=== PATIENT | female | born 1965 | race Two or more races ===

== ENCOUNTER → 2020-08-27 14:32 | Outpatient (BNVA) | payer OTHER, SELFPAY | PROVIDERS: PCP Internal Medicine; Visit Provider Nurse Practitioner ==

== ENCOUNTER 2021-02-06 10:19 | Outpatient (REF) | payer OTHER, SELFPAY ==
[2021-02-06 12:43] LABS: Free T4 (Free Thyroxine) 1.25 ng/dL (0.71-1.85); Thyroid Stimulating Hormone 0.42 uIU/mL (0.32-4.0)
[2021-02-07 08:17] LABS: Triiodothyronine T3 Total 99 ng/dL (76-181)
== END 2021-02-06 10:20 | disposition home or self-care (01) ==
LOC: HO.LAB 10:19
PROVIDERS: Absent Provider Internal Medicine; PCP Internal Medicine; Visit Provider Internal Medicine
DX: E05.00 Thyrotoxicosis with diffuse goiter without thyrotoxic crisis or storm (principal); E89.0 Postprocedural hypothyroidism; Z11.59 Encounter for screening for other viral diseases
CPT/HCPCS: 36415; 84439; 84443; 84480

== ENCOUNTER 2021-03-17 11:45 | Outpatient (REF) | payer OTHER, SELFPAY ==
--- NOTE | ~2021-03-17 | US_ITS ---
EXAMINATION: US THYROID CLINICAL INFORMATION: Hypothyroidism. COMPARISON: Ultrasound soft tissue head/neck thyroid dated 09/21/2019 and 06/13/2013. TECHNIQUE: Linear transducer grayscale and color Doppler examination with attention to the region of the thyroid. FINDINGS: SIZE: Measurements of the thyroid lobes and nodules are given in sagittal, anteroposterior and transverse dimensions respectively. Right Thyroid Lobe: 3.1 x 0.7 x 0.8 cm, volume 0.9 mL. Previously 2.6 x 1.3 x 0.6 cm, volume 1.0 mL. Parenchyma: The gland echotexture is heterogeneous. Thyroid vascularity is normal. Left Thyroid Lobe: 2.4 x 0.6 x 0.7 cm, volume 0.5 mL. Previously 2.8 x 0.9 x 0.7 cm, volume 0.8 mL. Parenchyma: The gland echotexture is heterogeneous. Thyroid vascularity is normal. Isthmus: 0.1 cm in maximum AP dimension. Previously 0.15 cm. No focal thyroid nodule is seen. NODES: No lymphadenopathy is seen in the tissue surrounding the thyroid gland. US/US thyroid IMPRESSION: The thyroid is small here with heterogeneous echogenicity which is overall increased. The findings are most consistent with a diagnosis of chronic thyroiditis such as Harry's. There is no defined nodule. ACR TI-RADS RECOMMENDATION REFERENCE: Ultrasound-guided fine-needle aspiration, followup ultrasound, no further follow up. * TR1 (0 point) and TR 2 (2 points): No FNA or follow up * TR3 (3 points): FNA if more than or equal to 2.5 cm in maximum dimension, followup ultrasound in 1, 3 and 5 years if 1.5 to 2.4 cm in maximum dimension. * TR4 (4-6 points): FNA if more than or equal to 1.5 cm in maximum dimension, followup ultrasound in 1, 2, 3 and 5 years if 1 to 1.4 cm in maximum dimension. * TR5 (more than or equal to 7 points): FNA if more than or equal to 1 cm in maximum dimension, followup ultrasound every year for 5 years if 0.5 to 0.9 cm in maximum dimension. * TR3, TR4 or TR5 nodules that are below the size threshold for follow up receive no follow up.
== END 2021-03-17 11:46 | disposition home or self-care (01) ==
LOC: HO.US 11:45
PROVIDERS: Visit Provider Internal Medicine
DX: E03.9 Hypothyroidism, unspecified (principal)
CPT/HCPCS: 76536

== ENCOUNTER 2021-03-20 11:31 | Outpatient (REF) | payer OTHER, SELFPAY ==
--- NOTE | ~2021-03-20 | US_ITS ---
EXAMINATION: US VENOUS ULTRASOUND WITH DOPPLER LOWER EXTREMITY, LEFT CLINICAL INFORMATION: Pain in left leg COMPARISON: Ultrasound left lower extremity venous Doppler from 10/03/2010 TECHNIQUE: Ultrasound of the deep veins is performed from the hip to the calf with compression sonography and color and pulse Doppler assessment. Spectral analysis with color-flow imaging is performed. FINDINGS: There is normal venous compression and respiratory variation and augmented flow. The visualized common femoral vein, superficial femoral vein, profunda femoral vein, popliteal vein, and the trifurcation region shows no evidence of deep venous thrombosis. There is no significant popliteal fossa cyst. If the patient's symptoms persist, followup ultrasound in 5 days 7 days might be of value to exclude proximal propagation from a non-visualized calf vein. US/US venous duplex LE IMPRESSION: No DVT demonstrated in the left lower extremity.
[2021-03-20 12:35] LABS: MANUAL DIFF FLAG NO
[2021-03-20 12:44] LABS: Eosinophils Absolute Auto 0.1 X10*3/uL (0.0-0.4); Eosinophils Percent Auto 1.1 % (0-4); Hematocrit 42.6 % (37-47); Imm Gran Abs Auto 0.01 X10*3/uL (0.00-0.03); Imm Gran Pct Auto 0.2 % (0.0-0.4); Lymphocytes Absolute Auto 1.3 X10*3/uL (1.2-4.9); Lymphocytes Percent Auto 30.5 % (20-40); Mean Corpuscular HGB Conc 32.9 g/dl (31.0-35.0); Mean Corpuscular Volume 85.2 fL (80-98); Monocytes Absolute Auto 0.3 X10*3/uL (0.1-1.2); Monocytes Percent Auto 5.9 % (2-11); Neutrophils Absolute Auto 2.7 X10*3/uL (2.0-8.3); Neutrophils Percent Auto 62.3 % (45-73); Platelet Count 145 X10*3/uL (160-400); Red Cell Distribution Width 12.7 % (11.0-16.0); White Blood Count 4.4 X10*3/uL (4.8-10.8)
[2021-03-20 13:25] LABS: Thyroid Stimulating Hormone 1.22 uIU/mL (0.32-4.0)
[2021-03-20 13:46] LABS: Cholesterol 283 mg/dL; HDL Cholesterol 56 mg/dL; LDL Cholesterol Calculated 196 mg/dl; Triglycerides 157 mg/dL
[2021-03-20 14:06] LABS: Uric Acid 5.5 mg/dL (2.4-5.7)
[2021-03-20 16:08] LABS: Folate 13.2 ng/mL (> or = 4.0); Vitamin B12 930 pg/mL (200-900)
[2021-03-27 18:36] LABS: Vitamin D 25-OH, D2 <4 ng/mL; Vitamin D 25-OH, D3 42 ng/mL; Vitamin D 25-OH, Total 42 ng/mL (30-100)
== END 2021-03-20 11:32 | disposition home or self-care (01) ==
LOC: HO.US 11:31
PROVIDERS: PCP Internal Medicine; Visit Provider Internal Medicine
DX: M79.605 Pain in left leg (principal); D64.9 Anemia, unspecified; E78.5 Hyperlipidemia, unspecified; E06.3 Autoimmune thyroiditis; M10.9 Gout, unspecified; D51.0 Vitamin B12 deficiency anemia due to intrinsic factor deficiency; E55.9 Vitamin D deficiency, unspecified
CPT/HCPCS: 36415; 80061; 82306; 82607; 82746; 84443; 84550; 85025; 93971

== ENCOUNTER 2021-04-16 11:41 | Outpatient (REF) | payer OTHER, SELFPAY ==
--- NOTE | ~2021-04-16 | US_ITS ---
EXAMINATION: US VENOUS ULTRASOUND WITH DOPPLER LOWER EXTREMITY, LEFT CLINICAL INFORMATION: Pain COMPARISON: Previous exams most recent March 2021 TECHNIQUE: Ultrasound of the deep veins is performed from the hip to the calf with compression sonography and color and pulse Doppler assessment. Spectral analysis with color-flow imaging is performed. FINDINGS: There is normal venous compression and respiratory variation and augmented flow. The visualized common femoral vein, superficial femoral vein, profunda femoral vein, popliteal vein, and the trifurcation region shows no evidence of deep venous thrombosis. There is no significant popliteal fossa cyst. US/US venous duplex LE LT IMPRESSION: No DVT demonstrated in the left lower extremity.
== END 2021-04-16 11:42 | disposition home or self-care (01) ==
LOC: HO.US 11:41
PROVIDERS: Visit Provider Internal Medicine
DX: M79.605 Pain in left leg (principal)
CPT/HCPCS: 93971

== ENCOUNTER → 2021-05-12 08:23 | Outpatient (BNVA) | payer OTHER, SELFPAY | PROVIDERS: PCP Internal Medicine; Visit Provider Internal Medicine ==

== ENCOUNTER 2021-07-24 11:16 | Outpatient (REF) | payer OTHER, SELFPAY ==
--- NOTE | ~2021-07-24 | XR_ITS ---
EXAMINATION: XR LUMBAR SPINE XR CERVICAL SPINE CLINICAL INFORMATION: Neck pain and low back pain. COMPARISON: None TECHNIQUE: Lumbar spine 3 views. Cervical spine 2 views. FINDINGS: CERVICAL SPINE: There is normal cervical lordosis. The vertebral heights and alignment are normal. There is loss of disc height. There is mild ventral spondylosis at the C4-C5 and C5-C6 disc levels. No visible acute fracture, dislocation or subluxation is seen. No lytic process. The prevertebral and paravertebral soft tissues are normal. LUMBAR SPINE: There is normal lumbar lordosis. The vertebral heights and alignment are normal. The disc heights are preserved. No lytic or sclerotic process is seen. The SI joints are symmetrical and unremarkable. The paravertebral soft tissues are normal. XR/XR cervical spine 2V IMPRESSION: Unremarkable cervical spine exam. There is mild ventral spondylosis at the C4-C5 and C5-C6 disc levels. No acute fracture or dislocation is seen. No acute fracture or dislocation in the lumbar spine. There is mild ventral spondylosis in the mid lumbar spine.
--- NOTE | ~2021-07-24 | XR_ITS ---
EXAMINATION: XR LUMBAR SPINE XR CERVICAL SPINE CLINICAL INFORMATION: Neck pain and low back pain. COMPARISON: None TECHNIQUE: Lumbar spine 3 views. Cervical spine 2 views. FINDINGS: CERVICAL SPINE: There is normal cervical lordosis. The vertebral heights and alignment are normal. There is loss of disc height. There is mild ventral spondylosis at the C4-C5 and C5-C6 disc levels. No visible acute fracture, dislocation or subluxation is seen. No lytic process. The prevertebral and paravertebral soft tissues are normal. LUMBAR SPINE: There is normal lumbar lordosis. The vertebral heights and alignment are normal. The disc heights are preserved. No lytic or sclerotic process is seen. The SI joints are symmetrical and unremarkable. The paravertebral soft tissues are normal. XR/XR lumbar spine 2-3V IMPRESSION: Unremarkable cervical spine exam. There is mild ventral spondylosis at the C4-C5 and C5-C6 disc levels. No acute fracture or dislocation is seen. No acute fracture or dislocation in the lumbar spine. There is mild ventral spondylosis in the mid lumbar spine.
--- NOTE | ~2021-07-24 | MR_ITS ---
EXAMINATION: MR BRAIN WITHOUT CONTRAST CLINICAL INFORMATION: New daily persistent headache. COMPARISON: Brain MRI 08/19/2018. TECHNIQUE: Multiplanar, multisequence imaging of the brain was performed without intravenous contrast. FINDINGS: There is no acute infarction, mass, hemorrhage, or extra-axial collection. The ventricles, sulci, and basilar cisterns are normal in size and configuration. Technique using a minimal nonspecific foci of T2/FLAIR hyperintensity are seen within the cerebral white matter. The cerebellar tonsils are normally positioned above the foramen magnum. The sella is partially empty, a nonspecific finding. The flow voids of the major intracranial arteries appear intact. The right-sided vestibule is again noted to be asymmetrically enlarged, likely congenital. There is mild paranasal sinus mucosal thickening without fluid levels. The mastoids are clear. MR/MR head/brain wo con IMPRESSION: No acute infarct, mass lesion, intracranial hemorrhage, or evidence of hydrocephalus.
[2021-07-24 12:14] LABS: MANUAL DIFF FLAG NO
[2021-07-24 12:44] LABS: Basophils Percent Auto 0.3 % (0-2); Eosinophils Percent Auto 0.8 % (0-4); Hemoglobin 13.4 g/dl (12.0-16.0); Imm Gran Abs Auto 0.01 X10*3/uL (0.00-0.03); Imm Gran Pct Auto 0.3 % (0.0-0.4); Lymphocytes Absolute Auto 1.2 X10*3/uL (1.2-4.9); Lymphocytes Percent Auto 32.5 % (20-40); Mean Corpuscular HGB Conc 32.7 g/dl (31.0-35.0); Mean Corpuscular Volume 85.6 fL (80.0-98.0); Mean Platelet Volume 11.3 fL (9.4-12.3); Monocytes Absolute Auto 0.2 X10*3/uL (0.1-1.2); Monocytes Percent Auto 5.6 % (2-11); Neutrophils Absolute Auto 2.3 x10*3/uL (2.0-8.3); Neutrophils Percent Auto 60.5 % (45-73); Platelet Count 151 X10*3/uL (160-400); Red Blood Count 4.79 X10*6/uL (4.20-5.50); Red Cell Distribution Width 12.4 % (11.0-16.0); White Blood Count 3.8 X10*3/uL (4.8-10.8)
[2021-07-24 12:52] LABS: Appearance Urine CLEAR; Color Urine YELLOW; Glucose Urine UA NEG (NEG); Leukocyte Esterase Urine NEG (NEG); Nitrite Urine NEG (NEG); Specific Gravity - Urine >= 1.030 (1.005-1.025); Urine Blood NEG (NEG); Urine Ketones 15 MG/DL (NEG); Urine Protein NEG (NEG-TRACE)
[2021-07-24 13:07] LABS: Alanine Aminotransferase 17 U/L (0-31); Albumin Level 4.4 g/dL (3.5-5.0); Alkaline Phosphatase 82 U/L (39-117); Anion Gap 12 (12-20); Aspartate Amino Transferase 19 U/L (5-31); Bilirubin Total 1.6 mg/dL (0.0-1.0); Blood Urea Nitrogen 11 mg/dL (9-16); Calcium 9.4 mg/dL (8.4-10.2); Carbon Dioxide 28 mmol/L (22-29); Chloride 104 mmol/L (96-108); Cholesterol 286 mg/dL; Estimated Glomerular Filt Rate > 60; Glucose Fasting 102 mg/dL (60-99); HDL Cholesterol 58 mg/dL; LDL Cholesterol Calculated 207 mg/dl; Potassium 3.9 mmol/L (3.3-5.1); Sodium 140 mmol/L (135-145); Total Protein 7.2 g/dL (6.5-8.0); Triglycerides 108 mg/dL
[2021-07-24 13:55] LABS: Folate > 20.0 ng/mL (> or = 4.0); Vitamin B12 1004 pg/mL (200-900)
[2021-07-29 13:02] LABS: Vitamin D 25-OH, D2 <4 ng/mL; Vitamin D 25-OH, D3 32 ng/mL; Vitamin D 25-OH, Total 32 ng/mL (30-100)
== END 2021-07-24 11:17 | disposition home or self-care (01) ==
LOC: HO.MRI 11:16
PROVIDERS: PCP Internal Medicine; Visit Provider Internal Medicine
DX: M54.2 Cervicalgia (principal); M54.50 Low back pain, unspecified; G44.52 New daily persistent headache (NDPH); E78.5 Hyperlipidemia, unspecified; E03.9 Hypothyroidism, unspecified; E06.3 Autoimmune thyroiditis; E53.8 Deficiency of other specified B group vitamins; E55.9 Vitamin D deficiency, unspecified
CPT/HCPCS: 36415; 70551; 72040; 72100; 80053; 80061; 81003; 82306; 82607; 82746; 84443; 85025

== ENCOUNTER → 2021-12-04 09:30 | Outpatient (BNVA) | payer OTHER, SELFPAY | PROVIDERS: PCP Internal Medicine; Visit Provider Internal Medicine | DX: Z13.89 Encounter for screening for other disorder (principal) ==

== ENCOUNTER 2022-03-27 09:49 | Outpatient (REF) | payer OTHER, SELFPAY ==
--- NOTE | ~2022-03-27 | XR_ITS ---
EXAMINATION: XR LUMBOSACRAL SPINE CLINICAL INFORMATION: Left-sided sciatica COMPARISON: Previous x-ray July 2021 TECHNIQUE: Three views of the lumbosacral spine. FINDINGS: Bone alignment is normal. No fracture or dislocation is seen. There is mild degenerative spondylosis. Disc spaces are normal. There is lower lumbar spine facet arthritis. There is evidence of atherosclerotic disease. XR/XR lumbar spine 2-3V IMPRESSION: Mild degenerative changes.
[2022-03-27 11:46] LABS: Appearance Urine Clear; Color Urine Yellow; Glucose Urine UA Negative (Negative); Leukocyte Esterase Urine Negative (Negative); Nitrite Urine Negative (Negative); PH 5.5 (5.0-8.0); Specific Gravity - Urine >= 1.030 (1.005-1.025); Urine Blood Negative (Negative); Urine Ketones Negative (Negative); Urine Protein Negative (Neg-Trace)
== END 2022-03-27 09:50 | disposition home or self-care (01) ==
LOC: HO.XRAY 09:49
PROVIDERS: PCP Internal Medicine; Visit Provider Internal Medicine
DX: M54.32 Sciatica, left side (principal); R30.0 Dysuria
CPT/HCPCS: 72100; 81003

== ENCOUNTER 2022-04-27 13:37 | Outpatient (REF) | payer OTHER, SELFPAY ==
[2022-04-29 12:21] LABS: Transglutaminase Ab IgG <1.0 U/mL; Transglutaminase IgA <1.0 U/mL
[2022-04-30 17:02] LABS: Vitamin D 25-OH, D2 <4 ng/mL; Vitamin D 25-OH, D3 34 ng/mL; Vitamin D 25-OH, Total 34 ng/mL (30-100)
== END 2022-04-27 13:38 | disposition home or self-care (01) ==
LOC: HO.LAB 13:37
PROVIDERS: PCP Internal Medicine; Visit Provider Nurse Practitioner Family
DX: Z01.818 Encounter for other preprocedural examination (principal); R10.9 Unspecified abdominal pain; E55.9 Vitamin D deficiency, unspecified; E78.5 Hyperlipidemia, unspecified; K21.9 Gastro-esophageal reflux disease without esophagitis; K58.2 Mixed irritable bowel syndrome
CPT/HCPCS: 36415; 82306; 86364; 99202; 99212

== ENCOUNTER 2022-05-07 09:20 | Outpatient (REF) | payer OTHER, SELFPAY ==
[2022-05-07 19:15] LABS: CT PCR NOT DETECTED (Not Detect.); NG PCR NOT DETECTED (Not Detect.)
[2022-05-08 09:19] LABS: BV Int Neg Control Negative (Negative); BV Int Pos Control Positive (Positive)
[2022-05-09 14:16] LABS: HPV mRNA E6/E7 rflx Not Detected (Not Detected)
== END 2022-05-07 09:21 | disposition home or self-care (01) ==
LOC: HO.LNP 09:20
PROVIDERS: Visit Provider Advanced Practice Midwife
DX: Z01.419 Encounter for gynecological examination (general) (routine) without abnormal findings (principal); R10.2 Pelvic and perineal pain; Z11.3 Encounter for screening for infections with a predominantly sexual mode of transmission; Z11.8 Encounter for screening for other infectious and parasitic diseases; Z11.51 Encounter for screening for human papillomavirus (HPV)
CPT/HCPCS: 76830; 76856; 81003; 87480; 87491; 87510; 87591; 87624; 87660; 88142

== ENCOUNTER 2022-05-07 09:40 | Outpatient (REF) | payer OTHER, SELFPAY ==
--- NOTE | ~2022-05-07 | US_ITS ---
EXAMINATION: US PELVIS CLINICAL INFORMATION: Pelvic and perineal pain. COMPARISON: None TECHNIQUE: Ultrasound of the pelvis is performed using both transabdominal and transvaginal transducers along with Doppler. Transvaginal imaging is performed due to inadequate visualization transabdominally. FINDINGS: UTERUS AND CERVIX The anteflexed, anteverted uterus measures approximately 5 x 3 x 5 cm ([id number] x AP x transverse dimension). The cervix is approximately 2 cm in length. No evidence of cervical mass. The endometrium is 0.3 cm AP. A 0.5 x 0.4 x 0.6 cm echogenic focus within the anterior uterine body remains similar in appearance compared to 08/04/2018 and likely represents a small intramural leiomyoma. ADNEXA: The right ovary is not visualized. The left ovary is not convincingly seen. The structure that probably represents the atrophied left ovary is 2.3 x 1.6 x 1.1 cm, volume of 2.1 mL. No adnexal masses are seen. No pelvic free fluid. US/US pelvic and transvaginal IMPRESSION: * Small intramural leiomyoma of the uterus. * No adnexal masses are seen, and there is no pelvic free fluid. No acute sonographic abnormalities in the visualized pelvis.
== END 2022-05-07 09:41 | disposition home or self-care (01) ==
LOC: HO.US 09:40
PROVIDERS: PCP Internal Medicine; Visit Provider Advanced Practice Midwife
DX: Z13.89 Encounter for screening for other disorder (principal)
CPT/HCPCS: 76830; 76856

== ENCOUNTER 2022-06-17 09:44 | Outpatient (REF) | payer OTHER, SELFPAY ==
[2022-06-17 13:15] LABS: Free T4 (Free Thyroxine) 1.33 ng/dL (0.71-1.85); Thyroid Stimulating Hormone 0.88 uIU/mL (0.32-4.0)
[2022-06-17 14:20] LABS: Vitamin D 25-OH Total 36.9 ng/mL (>30)
== END 2022-06-17 09:45 | disposition home or self-care (01) ==
LOC: HO.LAB 09:44
PROVIDERS: PCP Internal Medicine; Visit Provider Internal Medicine
DX: E55.9 Vitamin D deficiency, unspecified (principal); E89.0 Postprocedural hypothyroidism; E05.00 Thyrotoxicosis with diffuse goiter without thyrotoxic crisis or storm
CPT/HCPCS: 36415; 82306; 84439; 84443

== ENCOUNTER 2022-07-07 10:00 | Outpatient (RCR) | payer OTHER, SELFPAY ==
--- NOTE | 2022-07-29 08:56 | MHC.PT.DC ---
[facility] [place] Office [place] Office [place] Office [address] Fili Davidson [address] [phone] F: [phone] F: [phone] F: [phone] F: [phone] Physical Therapy Discharge Report Diagnosis: SCIATICA, LEFT SIDE (KP) Date of Surgery: Date of Evaluation: 06/17/22 Date of Discharge: 07/29/22 Treatments to Date: 2 Cancellations to Date: 4 No Shows to Date: 0 Discharge Status: Patient Elected to Stop Visit Non-compliance Discharge Summary: Brittany cancelled multiple appoints due to illness, transportation etc. At last cancelled treatment she chose to not schedule any further visits at this time. Electronically signed by: Rhea Power PT, DPT Please sign and return to therapist. Thank you for your referral.
== END 2022-07-29 08:55 | disposition home or self-care (01) ==
LOC: HO.PT 10:00
PROVIDERS: PCP Internal Medicine; Visit Provider Internal Medicine
DX: M54.32 Sciatica, left side (principal)
CPT/HCPCS: 97110; 97140; 97162

== ENCOUNTER 2022-10-23 09:48 | Outpatient (REF) | payer OTHER, SELFPAY ==
--- NOTE | ~2022-10-23 | MM_ITS ---
EXAMINATION: MM SCREENING DIGITAL BREAST TOMOSYNTHESIS, BILATERAL CLINICAL INFORMATION: Screening. Asymptomatic. The lifetime risk of breast cancer based on the Tyrer-Cuzick Model is 6%. COMPARISON: Mammography: 07/18/2018, 04/28/2017, 12/24/2015 TECHNIQUE: Digital breast tomosynthesis is performed in both the craniocaudal and mediolateral oblique views along with computer-aided detection (CAD). Synthesized 2D images are generated from the tomosynthesis. FINDINGS: There are scattered areas of fibroglandular density (ACR BI-RADS breast composition Category b). There are no significant masses, abnormal calcifications, or other abnormalities. Breast tissue composition borders on predominantly fatty. Background stromal markings are stable. There is an incidental intramammary node again seen mid upper outer left breast. The axilla and skin contours are unremarkable. No significant changes. MM/MM tomosynthesis screening BI IMPRESSION: No mammographic evidence of malignancy. ASSESSMENT: BI-RADS 2: Benign RECOMMENDATION: Routine annual mammography screening. This patient's information was entered into a reminder system with a target due date for their next mammogram.
[2022-10-23 11:10] LABS: Alanine Aminotransferase 20 U/L (0-31); Albumin Level 4.6 g/dL (3.5-5.0); Alkaline Phosphatase 91 U/L (39-117); Anion Gap 12 (12-20); Aspartate Amino Transferase 20 U/L (5-31); Bilirubin Total 1.8 mg/dL (0.0-1.0); Blood Urea Nitrogen 14 mg/dL (9-16); Calcium 9.5 mg/dL (8.4-10.2); Carbon Dioxide 28 mmol/L (22-29); Chloride 103 mmol/L (96-108); Cholesterol 352 mg/dL; Estimated Glomerular Filt Rate > 60; Glucose Fasting 143 mg/dL (60-99); HDL Cholesterol 55 mg/dL; LDL Cholesterol Calculated 262 mg/dl; Potassium 4.6 mmol/L (3.3-5.1); Sodium 138 mmol/L (135-145); Total Protein 7.2 g/dL (6.5-8.0); Triglycerides 179 mg/dL
[2022-10-23 11:43] LABS: Folate 19.3 ng/mL (> or = 4.0); Thyroid Stimulating Hormone 2.19 uIU/mL (0.32-4.0); Vitamin B12 803 pg/mL (200-900)
== END 2022-10-23 09:49 | disposition home or self-care (01) ==
LOC: HO.MAMMO 09:48
PROVIDERS: PCP Internal Medicine; Visit Provider Internal Medicine
DX: Z00.00 Encounter for general adult medical examination without abnormal findings (principal); Z12.31 Encounter for screening mammogram for malignant neoplasm of breast; E53.8 Deficiency of other specified B group vitamins; E78.5 Hyperlipidemia, unspecified; E06.3 Autoimmune thyroiditis
CPT/HCPCS: 36415; 77063; 77067; 80053; 80061; 82607; 82746; 84443; 99212

== ENCOUNTER 2022-10-23 11:40 | Outpatient (REF) | payer OTHER, SELFPAY | END 2022-10-23 11:41 | disposition home or self-care (01) | LOC: HO.LNP 11:40 | PROVIDERS: Visit Provider Advanced Practice Midwife | DX: R87.615 Unsatisfactory cytologic smear of cervix (principal) | CPT/HCPCS: 88142 ==

== ENCOUNTER 2022-11-17 11:00 | Outpatient (RCR) | payer OTHER, SELFPAY ==
--- NOTE | 2022-11-10 13:50 | MHC.PT.EP ---
[facility] [place] Office [place] Office [place] Office [address] Fili Davidson [address] [phone] F: [phone] F: [phone] F: [phone] F: [phone] Physical Therapy Plan of Care Date of Evaluation: Date of Surgery: n/a Diagnosis: sciatica, L side Assessment: Patient is a 57 year old female presenting to PT with complaints of pain in her low back. Pt reports onset of pain began about 3 weeks ago due to insidious onset. She presents today with impairments in pain, lumbar ROM, hip strength, core strength, radicular sx, and posture. Pt's current occupation is none, with baseline physical activities including ADLs, sleeping, bending, standing, ambulating. 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 Clinical presentation today is most consistent with signs and sx associated with possible sciatica sx and pt will benefit from skilled PT 2 week x 4 weeks to address the following problems and impairments noted upon evaluation: pain, lumbar ROM, hip strength, core strength, radicular sx, and posture. Her rehab potential is fair due to previous unsuccess with PT and noncompliance with PT. These problems limit the patient with the following functional activities: ADLs, sleeping, bending, standing, ambulating. The prescribed treatment plan of care is medically necessary. Co-morbidities of polyarthralgia, depression were identified and taken into considerations of plan of care. Pt was educated on HEP, role of PT, prognosis, POC. Frequency and Duration: The patient will be seen 2 x week x 4 weeks Short Term Goals: Pt will demonstrate improved hip MMT strength by 1/3 grade in 2 weeks for improved lumbopelvic stability. Pt will demonstrate ability to perform PPT with good core recruitment in 2 weeks. Pt will demonstrate centralization of sx in her L leg in 2 weeks. Halfway Goals: Pt will demonstrate improved LEFI score by 9 points in 4 weeks for improved functional mobility. Pt will demonstrate ability to complete ADLs with min to no pain in 4 weeks for return to PLOF. Treatment Plan: Modalities to reduce pain, spasms and effusion. Manual therapy to restore motion and function. Therapeutic exercise to improve strength and flexibility. Neuromuscular re-education for posture and balance. Therapeutic activities to return to functional activities of daily living. Electronically signed by: Idalmis Matthews, PT, DPT, ATC Please sign and return to therapist. Thank you for your referral.
--- NOTE | 2022-12-29 13:37 | MHC.PT.DC ---
[facility] [place] Office [place] Office [place] Office [address] Fili Davidson [address] [phone] F: [phone] F: [phone] F: [phone] F: [phone] Physical Therapy Discharge Report Diagnosis: sciatica, L side Date of Surgery: n/a Date of Evaluation: 11/10/22 Date of Discharge: 12/29/22 Treatments to Date: 2 Cancellations to Date: 9 No Shows to Date: 0 Discharge Status: Recommend MD Follow-up Visit Non-compliance Discharge Summary: Pt has not returned to skilled PT in >30 days for various reasons. Pt to be d/c per policy. Electronically signed by: Idalmis Matthews PT, DPT, ATC Please sign and return to therapist. Thank you for your referral.
== END 2022-12-29 13:37 | disposition home or self-care (01) ==
LOC: HO.PTCHIC 11:00
PROVIDERS: PCP Internal Medicine; Visit Provider Internal Medicine
DX: M54.32 Sciatica, left side (principal)
CPT/HCPCS: 97110; 97140; 97162

== ENCOUNTER 2022-12-29 09:45 | Outpatient (REF) | payer OTHER, SELFPAY ==
--- NOTE | ~2022-12-29 | XR_ITS ---
EXAMINATION: XR HAND, RIGHT CLINICAL INFORMATION: Pain COMPARISON: None available. TECHNIQUE: PA, lateral, and oblique views of the right hand. FINDINGS: Bone alignment is normal. No fracture or dislocation. 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 Joint spaces are otherwise normal. Normal soft tissues. 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
== END 2022-12-29 09:46 | disposition home or self-care (01) ==
LOC: HO.XRAY 09:45
PROVIDERS: PCP Internal Medicine; Visit Provider Internal Medicine
DX: M79.644 Pain in right finger(s) (principal)
CPT/HCPCS: 73120

== ENCOUNTER 2023-01-22 12:43 | Outpatient (REF) | payer OTHER, SELFPAY ==
--- NOTE | ~2023-01-22 | US_ITS ---
EXAMINATION: US PELVIS CLINICAL INFORMATION: Pain COMPARISON: Previous pelvic ultrasound April 2022 TECHNIQUE: Ultrasound of the pelvis is performed using both transabdominal and transvaginal transducers along with Doppler. Transvaginal imaging is performed due to inadequate visualization transabdominally. Exam is limited. FINDINGS: The uterus is anteverted and measures 6.5 x 4 x 5.6 cm in dimension. There are 2 small uterine lesions probably representing fibroids measuring 1 x 0.7 x 0.7 cm in the posterior uterine body and 5 mm in the anterior uterine body. Endometrial thickness is normal measuring 0.3 cm. The ovaries are not seen. There is no fluid in the pelvis. US/US pelvic and transvaginal IMPRESSION: Limited exam. Probable small uterine fibroids. Ovaries not seen. No pelvic fluid.
== END 2023-01-22 12:44 | disposition home or self-care (01) ==
LOC: HO.US 12:43
PROVIDERS: PCP Internal Medicine; Visit Provider Advanced Practice Midwife
DX: R10.2 Pelvic and perineal pain (principal)
CPT/HCPCS: 76830; 76856

== ENCOUNTER → 2023-02-03 07:40 | Outpatient (BNVA) | payer OTHER, SELFPAY | PROVIDERS: PCP Internal Medicine; Visit Provider Advanced Practice Midwife ==

== ENCOUNTER 2023-03-29 09:44 | Outpatient (AMB) | payer OTHER, SELFPAY ==
--- NOTE | 2023-03-29 09:46 | A.OFFPC_ITS ---
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 Accompanied by: Self / Same As Patient Allergies Penicillins [PENICILLINS] Allergy (Intermediate, Verified 03/29/23 10:08) RASH statin Adverse Reaction (Intermediate, Uncoded 03/29/23 10:08) elevated liver enzymes Medication List - Last Reconciled 03/29/23 by Isidra Stanton MD albuterol sulfate 90 mcg/actuation 1 inh inhalation QID PRN 30 days bupropion HCl 150 mg PO QAM 90 days cholecalciferol (vitamin D3) 25 mcg PO DAILY 90 days cyclobenzaprine 5 mg PO BEDTIME PRN 30 days duloxetine 20 mg PO DAILY ezetimibe (Zetia) 10 mg PO DAILY 90 days fluorometholone 0.1% 1 drp ophthalmic (eye) TID gabapentin 300 mg PO TID 30 days ibuprofen 800 mg PO TID PRN 30 days levothyroxine 125 mcg PO DAILY 90 days lidocaine 5% 1 patch topical DAILY 15 days magnesium 250 mg PO DAILY meclizine 25 mg PO BID PRN 5 days mecobalamin (vitamin B12) 1,000 mcg PO DAILY 60 days methylcellulose (laxative) (Citrucel) 500 mg PO DAILY ondansetron 8 mg PO Q12H PRN 10 days pantoprazole 40 mg PO DAILY propranolol 60 mg PO DAILY 90 days sennosides (Natural Senna Laxative) 17.2 mg (2 x 8.6 mg) PO BEDTIME sertraline 50 mg PO DAILY Shower Chair As directed topiramate 25 mg PO DAILY 30 days trazodone 25 mg PO BEDTIME Ventolin HFA 90 mcg/actuation (albuterol sulfate) 2 puffs inhalation Q6H PRN 30 days NS vitamin A 2,400 mcg PO DAILY Tobacco use date assessed: 10/26/22 Dental Screening Dental Screen Date: 03/29/23 Did you have a dental visit in the last 12 months?: Yes Did you have a dental problem in the last 6 months where you did not have access to dental care?: No Was dental information given to patient?: Patient has dentist HPI HPI Comments History of Present Illness Details This is a 58-year-old female with autoimmune thyroiditis, GERD, dyslipidemia and mild recurrent major depression that complains of bilateral hand pain more prominent in the left that started last week after she moved a cable. TSH and lipid panel will be order. GERD stable with medications. Depression still present and she went to see a psychiatrist which prescribed sertraline and duloxetine as well as trazodone to sleep and she has not started anything yet. I advised to start duloxetine and to let psychiatry is know that she is on bupropion. No chest pain or shortness breath. [facility]LY [facility], [facility] Medical History (Updated 03/29/23 @ 10:25 by Isidra Stanton MD) Autoimmune thyroiditis B12 deficiency Dyslipidemia Ear discomfort Fibroids JAXSON (generalized anxiety disorder) GERD (gastroesophageal reflux disease) Graves disease Hypovitaminosis D Left leg pain Leukopenia Lumbar degenerative disc disease Lumbar pain Moderate recurrent major depression Nausea and vomiting Neck pain New daily persistent headache Pernicious anemia Physical exam Polyarthralgia Postablative hypothyroidism Severe major depression without psychotic features Uterine fibroid Surgical History History of laparoscopic cholecystectomy Family History Father Medical history unknown Mother Chronic mental illness Diabetes Hypertension Maternal Grandfather Stroke Maternal Aunt Uterine cancer Family/Other FH: mental illness Maternal Grandmother Diabetes Social History Household Members: None Housing: Apartment Are you a primary home care scheduler to a significant other at home: Yes (mom, brothers) Do you presently have visiting nurse or other home services: No Alcohol intake: current Alcohol intake frequency: holidays/special occasions only Alcohol type: wine and other Patient Tobacco Use Status: Never used Tobacco e-Cigarette/Vaping Use: Never Used Second Hand Smoke Exposure: No service: No Current occupational status: unemployed 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 Moncho Barriga, Kianna B.W. Abbe Salcedo and colleagues, with an educational lorenzo from [employer]. Review of Systems Const All systems reviewed & are unremarkable except as noted in HPI and below Eyes Reports no additional complaints, Denies change in vision and Denies other visual disturbances Card Denies chest pain at rest, Denies chest pain with activity, Denies edema, Denies irregular heart rhythm, Denies claudication, Denies dyspnea, Denies dyspnea on exertion, Denies orthopnea, Denies paroxysmal nocturnal dyspnea and Denies slow heart rate Resp Denies cough, Denies dyspnea and Denies dyspnea on exertion GI Denies abdominal pain, Denies change in bowel habits, Denies excessive flatus, Denies nausea and Denies vomiting Denies urinary incontinence, Denies urinary hesitancy and Denies urinary urgency Musc Denies abnormal gait, Denies atrophy, Denies deformity, Reports arthralgias, Denies limited range of motion and Reports muscle cramps Skin/Breast Denies bleeding lesions, Denies changing lesions and Denies rash Neuro Denies abnormal gait and Denies lack of coordination Psych Reports abnormal sleep pattern Physical exam (Primary Care) Vital Signs: Last Vital Signs BP 130/70 03/29/23 09:47 BMI result Body Mass Index 34.5 Tobacco/Smoking Status: Tobacco use Status Tobacco use date assessed 10/26/22 03/29/23 09:50 Patient Tobacco Use Status Never used Tobacco 03/29/23 09:50 Tobacco use type 10/21/22 11:48 e-Cigarette/Vaping Use Never Used 03/29/23 09:50 Thrive Assessment: Date of Thrive Assessment Date Thrive assessed 10/26/22 03/29/23 09:50 Eyes General: appearance normal, both eyes and all related structures Eyelids: Yes eyelids normal Conjunctivae: conjunctivae normal Neck Neck: Yes normal visual inspection and Yes supple Resp Effort & Inspection: normal respiratory effort Auscultation: clear to auscultation bilaterally Cardio Jugular venous distension: no JVD Rate: regular rate Rhythm: regular rhythm Heart sounds: S1 normal heart sound present and S2 normal heart sound present Extrem General: Yes full ROM Assessment and Plan Assessment & Plan (1) Mild recurrent major depression: Code(s): F33.0 - Major depressive disorder, recurrent, mild Plan: Continue bupropion. Start duloxetine. Follow-up with psychiatry. (2) Autoimmune thyroiditis: Code(s): E06.3 - Autoimmune thyroiditis Plan: Monitor TSH. Continue levothyroxine. (3) GERD (gastroesophageal reflux disease): Code(s): K21.9 - Gastro-esophageal reflux disease without esophagitis Qualifiers: Esophagitis presence: esophagitis presence not specified Qualified Code(s): K21.9 - Gastro-esophageal reflux disease without esophagitis Plan: Continue PPIs (4) Dyslipidemia: Code(s): E78.5 - Hyperlipidemia, unspecified Plan: Continue Zetia. Repeat lipid panel. (5) Left hand pain: Code(s): M79.642 - Pain in left hand Plan: X-ray ordered. Referred to occupational therapy. Orders: Orders Vitamin B12 and Folate Today E53.8 - Deficiency of other specified B group vitamins Comprehensive [place]. Panel Fast Today F41.1 - Generalized anxiety disorder Lipid Panel Today E78.5 - Hyperlipidemia, unspecified Thyroid Stimulating Hormone Today E89.0 - Postprocedural hypothyroidism Vitamin D 25-OH Total Today E55.9 - Vitamin D deficiency, unspecified OT Evaluation and Treatment Today M79.642 - Pain in left hand XR hand LT 2V Today M79.642 - Pain in left hand Coding Level of Care Code Est Pt Level 4 (79488) Diagnoses Mild recurrent major depression F33.0 Autoimmune thyroiditis E06.3 GERD (gastroesophageal reflux disease) K21.9 Esophagitis presence: esophagitis presence not specified Dyslipidemia E78.5 Left hand pain M79.642 Time Spent (min) 24
[2023-03-29 09:47] VITALS: BP 130/70; BMI 34.5
== END 2023-03-29 10:45 | disposition home or self-care (01) ==
PROVIDERS: Visit Provider Internal Medicine
DX: F33.0 Major depressive disorder, recurrent, mild (principal); E06.3 Autoimmune thyroiditis; K21.9 Gastro-esophageal reflux disease without esophagitis; E78.5 Hyperlipidemia, unspecified; M79.642 Pain in left hand
CPT/HCPCS: 99214

== ENCOUNTER 2023-03-29 10:56 | Outpatient (REF) | payer OTHER, SELFPAY ==
--- NOTE | ~2023-03-29 | XR_ITS ---
EXAMINATION: XR HAND, LEFT CLINICAL INFORMATION: Pain in left hand, second digit DIP joint region COMPARISON: 01/30/2015 TECHNIQUE: PA, lateral, and oblique views of the left hand. FINDINGS: Radiopaque marker placed by the technologist to indicate the area of concern as indicated by the patient at the level of the proximal interphalangeal joint of the second digit. Mild degenerative changes at the proximal interphalangeal joint of the second digit with associated soft tissue swelling. No displaced fracture. Mild degenerative changes in scattered interphalangeal joints. Mild degenerative changes first carpometacarpal joint with joint space narrowing and hypertrophic change. No displaced fracture. XR/XR hand LT 2V IMPRESSION: Mild degenerative changes at the proximal interphalangeal joint of the second digit with associated soft tissue swelling. No displaced fracture. Recommend follow-up imaging in 10-14 days if fracture is suspected.
== END 2023-03-29 10:57 | disposition home or self-care (01) ==
LOC: HO.XRAY 10:56
PROVIDERS: PCP Internal Medicine; Visit Provider Internal Medicine
DX: M79.642 Pain in left hand (principal)
CPT/HCPCS: 73120

== ENCOUNTER 2023-04-05 08:51 | Outpatient (REF) | payer OTHER, SELFPAY ==
[2023-04-05 10:57] LABS: Alanine Aminotransferase 16 U/L (0-31); Albumin Level 4.2 g/dL (3.5-5.0); Alkaline Phosphatase 82 U/L (39-117); Anion Gap 12 (12-20); Aspartate Amino Transferase 19 U/L (5-31); Bilirubin Total 1.4 mg/dL (0.0-1.0); Blood Urea Nitrogen 11 mg/dL (9-16); Calcium 9.5 mg/dL (8.4-10.2); Carbon Dioxide 24 mmol/L (22-29); Chloride 107 mmol/L (96-108); Cholesterol 249 mg/dL (<200); Estimated Glomerular Filt Rate > 60; Glucose Fasting 135 mg/dL (60-99); HDL Cholesterol 50 mg/dL (>40); LDL Cholesterol Calculated 167 mg/dL (<100); Potassium 4.1 mmol/L (3.3-5.1); Sodium 139 mmol/L (135-145); Total Protein 6.8 g/dL (6.5-8.0); Triglycerides 161 mg/dL (<150)
[2023-04-05 11:12] LABS: Free T4 (Free Thyroxine) 0.91 ng/dL (0.71-1.85); Thyroid Stimulating Hormone 1.31 uIU/mL (0.32-4.0); Vitamin D 25-OH Total 31.9 ng/mL (>30)
[2023-04-05 11:13] LABS: Folate 14.2 ng/mL (> or = 4.0); Vitamin B12 1023 pg/mL (200-900)
== END 2023-04-05 08:52 | disposition home or self-care (01) ==
LOC: HO.LAB 08:51
PROVIDERS: Absent Provider Internal Medicine; PCP Internal Medicine; Visit Provider Internal Medicine
DX: E78.5 Hyperlipidemia, unspecified (principal); E89.0 Postprocedural hypothyroidism; E53.8 Deficiency of other specified B group vitamins; F41.1 Generalized anxiety disorder; E55.9 Vitamin D deficiency, unspecified
CPT/HCPCS: 36415; 80053; 80061; 82306; 82607; 82746; 84439; 84443

== ENCOUNTER 2023-04-25 09:37 | Emergency (ER) | payer OTHER, SELFPAY ==
[2023-04-25 09:46] VITALS: BP 169/69; PULSE 63; RESP 18; TEMP 36.6; O2SAT 98; BMI 34.7
--- NOTE | 2023-04-25 09:50 | ED_ITS ---
HPI - Eye Problem General Chief complaint: Eye Problems Stated complaint: eye itchy Time Seen by Provider: 04/25/23 09:50 Source: patient and RN notes reviewed Mode of arrival: ambulatory Limitations: no limitations History of Present Illness HPI Narrative: This is a 58-year-old female, with a past medical history of autoimmune thyroiditis, dyslipidemia, anxiety, GERD, depression, and degenerative disc disease, who presents to the emergency department with complaints of right eye itchiness and swelling x2 days. Patient states that 2 days ago she believes that she was bit by an insect on her right upper eyelid. She reports itchiness in increased swelling to the area. Denies any fevers or chills. No changes in her vision. No pain with eye movements. No other complaints or concerns at this time. MD chief complaint: other (Eyelid swelling) Onset (ago): day(s) Onset description: gradual Duration: constant Location: right eye Eye Symptoms: itching Place: street/outdoors Mechanism: direct trauma Severity: mild If Pain, Quality: aching Associated symptoms: none Treatments Prior to Arrival: none Related Data Home Medications Medication Instructions Recorded Confirmed magnesium 250 mg tablet 250 mg PO DAILY 10/26/22 10/26/22 vitamin A 2,400 mcg capsule 2,400 mcg PO DAILY 10/26/22 03/29/23 duloxetine 20 mg capsule,delayed 20 mg PO DAILY 03/29/23 03/29/23 release fluorometholone 0.1 % eye 1 drp ophthalmic (eye) TID 03/29/23 03/29/23 drops,suspension sertraline 50 mg tablet 50 mg PO DAILY 03/29/23 03/29/23 trazodone 50 mg tablet 25 mg PO BEDTIME 03/29/23 03/29/23 Previous Rx's Medication Instructions Recorded gabapentin 300 mg capsule 300 mg PO TID 30 days #90 caps 09/04/21 Shower Chair #1 ea 10/17/21 propranolol 60 mg tablet 60 mg PO DAILY 90 days #90 tabs 01/29/22 methylcellulose (laxative) 500 mg 500 mg PO DAILY #90 tabs 04/27/22 tablet (Citrucel) sennosides 8.6 mg tablet (Natural 17.2 mg (2 x 8.6 mg) PO BEDTIME 04/27/22 Senna Laxative) constipation #60 tabs pantoprazole 40 mg tablet,delayed 40 mg PO DAILY #90 tabs 06/03/22 release ondansetron 8 mg disintegrating 8 mg PO Q12H PRN nausea and 07/17/22 tablet vomiting 10 days #20 tabs levothyroxine 125 mcg tablet 125 mcg PO DAILY 90 days #90 tabs 11/12/22 lidocaine 5 % topical patch 1 patch topical DAILY 15 days #15 11/12/22 ea mecobalamin (vitamin B12) 1,000 1,000 mcg PO DAILY 60 days #60 ea 11/16/22 mcg lozenges meclizine 25 mg tablet 25 mg PO BID PRN dizziness 5 days 12/29/22 #10 tabs Ventolin HFA 90 mcg/actuation 2 puff inhalation Q6H PRN 01/27/23 aerosol inhaler (albuterol sulfate) shortness of breath or wheezing 30 days #8 grams albuterol sulfate 90 mcg/actuation 1 inh inhalation QID PRN shortness 01/27/23 aerosol inhaler of breath or wheezing 30 days #6.7 grams bupropion HCl 150 mg 24 hr tablet, 150 mg PO QAM 90 days #90 tabs 01/27/23 extended release cholecalciferol (vitamin D3) 25 25 mcg PO DAILY 90 days #90 caps 01/27/23 mcg (1,000 unit) capsule ibuprofen 800 mg tablet 800 mg PO TID PRN fever or pain 30 01/27/23 days #90 tabs topiramate 25 mg sprinkle capsule 25 mg PO DAILY 30 days #30 caps 01/27/23 ezetimibe 10 mg tablet (Zetia) 10 mg PO DAILY 90 days #90 tabs 02/03/23 cyclobenzaprine 5 mg tablet 5 mg PO BEDTIME PRN muscle spasm 03/10/23 30 days #30 tabs cromolyn 4 % eye drops 1 drp ophthalmic (eye) QID 7 days 03/31/23 #10 mL rosuvastatin 10 mg tablet 10 mg PO DAILY 90 days #90 tabs 04/06/23 cefuroxime axetil 500 mg tablet 500 mg PO BID 7 days #14 tabs 04/25/23 erythromycin 5 mg/gram (0.5 %) eye 1 appl ophthalmic-Right BID 7 days 04/25/23 ointment #3.5 grams levofloxacin 500 mg tablet 500 mg PO DAILY 7 days #7 tabs 04/25/23 Allergies Allergy/AdvReac Type Severity Reaction Status Date / Time Penicillins [PENICILLINS] Allergy Intermediate RASH Verified 04/25/23 09:46 statin AdvReac Intermediate elevated Uncoded 03/29/23 10:08 liver enzymes Review of Systems Review of Systems: Yes all other systems are reviewed and are negative Constitutional: Constitutional: Reports as per HPI [facility] Past Medical History Medical History Autoimmune thyroiditis B12 deficiency Dyslipidemia Ear discomfort Fibroids JAXSON (generalized anxiety disorder) GERD (gastroesophageal reflux disease) Graves disease Hypovitaminosis D Left leg pain Leukopenia Lumbar degenerative disc disease Lumbar pain Moderate recurrent major depression Nausea and vomiting Neck pain New daily persistent headache Pernicious anemia Physical exam Polyarthralgia Postablative hypothyroidism Severe major depression without psychotic features Uterine fibroid Surgical History History of laparoscopic cholecystectomy Family History Family History Father Medical history unknown Mother Chronic mental illness Diabetes Hypertension Maternal Grandfather Stroke Maternal Aunt Uterine cancer Family/Other FH: mental illness Maternal Grandmother Diabetes Social History Social History Household Members: None Housing: Apartment Are you a primary childcare worker to a significant other at home: Yes (mom, brothers) Do you presently have visiting nurse or other home services: No Alcohol intake: current Alcohol intake frequency: holidays/special occasions on ly Alcohol type: wine and other Patient Tobacco Use Status: Never used Tobacco e-Cigarette/Vaping Use: Never Used Second Hand Smoke Exposure: No Advance Directives: No Advance Directives Information Provided: Yes service: No Current occupational status: unemployed Current occupation: [employer] O[employer] Cognitive needs: No Hearing needs: No Vision needs: No Physical Exam Vital Signs: Vital Signs: Last Vital Signs Temp 98 F 04/25/23 09:46 Pulse 63 04/25/23 09:46 Resp 18 04/25/23 09:46 BP 169/69 H 04/25/23 09:46 Pulse Ox 98 04/25/23 09:46 O2 Del Method Room Air 04/25/23 09:46 BMI result Body Mass Index 34.7 Const: General: cooperative, comfortable and no acute distress Orientation/consciousness: patient oriented x3 Limitations: no limitations HEENT: Head: Yes normal to inspection, Yes normocephalic and Yes atraumatic Ears: hearing grossly normal bilaterally General nose exam: Normal external nose present Face and sinus: Yes normal facial exam Mouth: Normal oral and palatal mucosa present, oropharynx normal and moist mucous membranes Throat: Yes posterior oropharynx normal Eyes: Other: Right upper eyelid is edematous, no erythema noted, no tenderness with palpation. Inversion of eyelid does not show any hordeolum Pupils are equal and reactive. No pain with eye movements. Conjunctiva is not injected. General: appearance normal, both eyes and all related structures Conjunctivae: conjunctivae normal Sclerae: sclerae normal Pupils: Equal, round and reactive pupils present EOM: EOMs intact bilaterally Neck: Neck: Yes normal visual inspection, Yes full ROM and Yes no lymphadenopathy Lymphatic: no lymphadenopathy noted Chest: Chest palpation & inspection: normal inspection of the chest Resp: Effort & Inspection: normal respiratory effort and able to speak in complete sentences Auscultation: clear to auscultation bilaterally, no crackles, no rales, no rhonchi and no wheezes Cardio: Rate: regular rate Rhythm: regular rhythm Heart sounds: S1 normal heart sound present and S2 normal heart sound present GI: Inspection: Yes normal to inspection Skin: General skin exam: no rashes or lesions noted Trauma: no lacerations or abrasions Wounds: no wounds Neuro: General: patient oriented x3 and moves all extremities Cranial nerv es: Yes Equal, round and reactive pupils present Extrem: General: Yes normal to inspection Right upper extremity: normal to inspection Left upper extremity: normal to inspection Right lower extremity: normal to inspection Left lower extremity: normal to inspection Course Reevaluation(s) Reevaluation #1: Due to penicillin allergy IA prescribed Levaquin and erythromycin. Time: 11:42 Medical Decision Making Medical Decision Making MDM Narrative: 58-year-old female presenting to the emergency department with complaints of right upper eyelid swelling and itchiness x2 days. She believes that she was bit by an insect and has had increasing swelling to her upper eyelid. Patient reports that it is itchy, denies any pain. Denies any visual changes. No pain with extraocular movements. Differential diagnoses include hordeolum own verses periorbital cellulitis versus allergic. Less likely orbital cellulitis given appearance and no pain with extraocular movements. Patient refuses to perform visual acuity test as she does not have her glasses with her. She denies any changes in her vision. No fevers or chills, vital signs are stable. Will treat patient as allergic and bacterial with Benadryl, oral antibiotics and topical antibiotics. Advised to apply warm compresses to the area multiple times a day as needed. Given return precautions. Patient understands and agrees with plan. Patient also requesting COVID test, she is asymptomatic Patient stable for discharge. Differential Diagnosis Differential Diagnoses: The differential diagnosis associated with the presentation includes See above Lab Data MDM Lab Attestation statement: I reviewed the patient's lab results. COVID negative Labs: Lab Results 04/25/23 Range/Units 10:07 COVID-19 (DIETER) Negative (Negative) COVID-19 Clin Com See Note Discharge Plan Discharge Clinical Impression: Preseptal cellulitis of right upper eyelid Patient Disposition: Home, Self-Care Instructions: Periorbital Cellulitis in Adults (ED) Additional Instructions: It is unclear whether not you have an allergic reaction to a insect bite or the start of a infection of your upper eyelid. Please take prescribed medication as directed. Finish the entire course even if you are feeling better. Please apply warm compresses to your right eye 5-6 times per day. You may take [id number] Benadryl as directed as needed for itching and swelling. If any new or worsening symptoms occur including but not limited to worsening pain with eye movements, blurred vision, worsening swelling, please return for re-evaluation. Prescriptions: New cefuroxime axetil 500 mg tablet 500 mg PO BID 7 Days Qty: 14 0RF levofloxacin 500 mg tablet 500 mg PO DAILY 7 Days Qty: 7 0RF erythromycin 5 mg/gram (0.5 %) ointment 1 appl ophthalmic-Right BID 7 Days Qty: 3.5 0RF No Action gabapentin 300 mg capsule 300 mg PO TID 30 Days Qty: 90 0RF (DME) Shower Chair Misc See Rx Instructions .ROUTE .MEDSUPPLY Qty: 1 0RF Rx Instructions: As directed propranolol 60 mg tablet 60 mg PO DAILY 90 Days Qty: 90 1RF pantoprazole 40 mg tablet,delayed release (DR/EC) 40 mg PO DAILY Qty: 90 2RF Rx Instructions: take one tablet half an hour before breakfast ondansetron 8 mg tablet,disintegrating 8 mg PO Q12H PRN (Reason: nausea and vomiting) 10 Days Qty: 20 0RF levothyroxine 125 mcg tablet 125 mcg PO DAILY 90 Days Qty: 90 1RF lidocaine 5 % adhesive patch,medicated 1 patch topical DAILY 15 Days Qty: 15 0RF Rx Instructions: leave on most painful area for up to 12 hrs mecobalamin (vitamin B12) 1,000 mcg lozenge 1,000 mcg PO DAILY 60 Days Qty: 60 4RF Rx Instructions: allow to dissolve in mouth OR may chew lightly before swallowing meclizine 25 mg tablet 25 mg PO BID PRN (Reason: dizziness) 5 Days Qty: 10 0RF albuterol sulfate 90 mcg/actuation HFA aerosol inhaler 1 inh inhalation QID PRN (Reason: shortness of breath or wheezing) 30 Days Qty: 6.7 1RF bupropion HCl 150 mg tablet extended release 24 hr 150 mg PO QAM 90 Days Qty: 90 0RF cholecalciferol (vitamin D3) 25 mcg (1,000 unit) capsule 25 mcg PO DAILY 90 Days Qty: 90 1RF ibuprofen 800 mg tablet 800 mg PO TID PRN (Reason: fever or pain) 30 Days Qty: 90 0RF topiramate 25 mg capsule, sprinkle 25 mg PO DAILY 30 Days Qty: 30 0RF albuterol sulfate [Ventolin HFA] 90 mcg/actuation HFA aerosol inhaler 2 puff inhalation Q6H PRN (Reason: shortness of breath or wheezing) 30 Days Qty: 8 0RF ezetimibe [Zetia] 10 mg tablet 10 mg PO DAILY 90 Days Qty: 90 1RF cyclobenzaprine 5 mg tablet 5 mg PO BEDTIME PRN (Reason: muscle spasm) 30 Days Qty: 30 0RF cromolyn 4 % drops 1 drp ophthalmic (eye) QID 7 Days Qty: 10 0RF rosuvastatin 10 mg tablet 10 mg PO DAILY 90 Days Qty: 90 1RF fluorometholone 0.1 % drops,suspension 1 drp ophthalmic (eye) TID sertraline 50 mg tablet 50 mg PO DAILY trazodone 50 mg tablet 25 mg PO BEDTIME duloxetine 20 mg capsule,delayed release(DR/EC) 20 mg PO DAILY magnesium 250 mg tablet 250 mg PO DAILY vitamin A 2,400 mcg capsule 2,400 mcg PO DAILY Citrucel 500 mg tablet 500 mg PO DAILY Qty: 90 2RF Rx Instructions: take it with full glass of water sennosides [Natural Senna Laxative] 8.6 mg tablet 17.2 mg PO BEDTIME Qty: 60 3RF Interventions: ED Discharge Assessment Last Done: 04/25/23 10:39 Discharge Date/Time: 04/25/23 10:39
[2023-04-25 10:35] LABS: COVID-19 Test Negative (Negative); IDNOW Serial# 6674DD1D
== END 2023-04-25 10:39 | disposition home or self-care (01) ==
PROVIDERS: Physician Assistant Medical; Emergency Provider Student in an Organized Health Care Education/Training Program; PCP Internal Medicine
DX: L03.213 Periorbital cellulitis (principal); Z20.822 Contact with and (suspected) exposure to COVID-19; Z20.828 Contact with and (suspected) exposure to other viral communicable diseases
CPT/HCPCS: 87635; 99282

== ENCOUNTER 2023-05-10 10:22 | Outpatient (AMB) | payer OTHER, SELFPAY ==
[2023-05-10 10:24] VITALS: BP 128/70; BMI 33.7
--- NOTE | 2023-05-10 10:24 | A.OFFPC_ITS ---
Vital Signs 05/10/23 10:24 Height 4 ft 11 in Weight 167 lb BMI 33.7 BP 128/70 Blood Pressure Location Lt brachial Position Sitting Intake Visit Reasons: eye redness/itchiness Intake Note: Patient here for eye redness with itch follow up Extension Clerk Required: No Accompanied by: Self / Same As Patient Allergies Penicillins [PENICILLINS] Allergy (Intermediate, Verified 05/10/23 10:43) RASH statin Adverse Reaction (Intermediate, Uncoded 05/10/23 10:43) elevated liver enzymes Medication List - Last Reconciled 05/10/23 by Isidra Stanton MD albuterol sulfate 90 mcg/actuation 1 inh inhalation QID PRN 30 days bupropion HCl 150 mg PO QAM 90 days cholecalciferol (vitamin D3) 25 mcg PO DAILY 90 days cromolyn 4% 1 drp ophthalmic (eye) QID 7 days cyclobenzaprine 5 mg PO BEDTIME PRN 30 days duloxetine 20 mg PO DAILY erythromycin 1 appl ophthalmic-Right BID 7 days ezetimibe (Zetia) 10 mg PO DAILY 90 days fluorometholone 0.1% 1 drp ophthalmic (eye) TID gabapentin 300 mg PO TID 30 days ibuprofen 800 mg PO TID PRN 30 days levothyroxine 125 mcg PO DAILY 90 days lidocaine 5% 1 patch topical DAILY 15 days magnesium 250 mg PO DAILY meclizine 25 mg PO BID PRN 5 days mecobalamin (vitamin B12) 1,000 mcg PO DAILY 60 days methylcellulose (laxative) (Citrucel) 500 mg PO DAILY ondansetron 8 mg PO Q12H PRN 10 days pantoprazole 40 mg PO DAILY propranolol 60 mg PO DAILY 90 days rosuvastatin 10 mg PO DAILY 90 days sennosides (Natural Senna Laxative) 17.2 mg (2 x 8.6 mg) PO BEDTIME sertraline 50 mg PO DAILY Shower Chair As directed topiramate 25 mg PO DAILY 30 days trazodone 25 mg PO BEDTIME Ventolin HFA 90 mcg/actuation (albuterol sulfate) 2 puffs inhalation Q6H PRN 30 days NS vitamin A 2,400 mcg PO DAILY Tobacco use date assessed: 10/26/22 HPI HPI Comments History of Present Illness Details This is a 58-year-old female with mild recurrent major depression, GERD, autoimmune thyroiditis and dyslipidemia that comes today complaining of some occasional right eye itchiness. She had preseptal cellulitis last month requiring antibiotics. Completely recover. Depression stable with SSRIs and bupropion. GERD stable with PPIs. Last TSH was normal. On statins and Zetia for her dyslipidemia. [facility] Medical History Uterine fibroid Fibroids Physical exam Polyarthralgia Leukopenia Ear discomfort JAXSON (generalized anxiety disorder) Moderate recurrent major depression Neck pain New daily persistent headache Postablative hypothyroidism Graves disease Severe major depression without psychotic features Left leg pain Pernicious anemia Lumbar degenerative disc disease Lumbar pain Nausea and vomiting GERD (gastroesophageal reflux disease) Hypovitaminosis D B12 deficiency Dyslipidemia Autoimmune thyroiditis Surgical History History of laparoscopic cholecystectomy Family History Father Medical history unknown Mother Chronic mental illness Diabetes Hypertension Maternal Grandfather Stroke Maternal Aunt Uterine cancer Family/Other FH: mental illness Maternal Grandmother Diabetes Social History Household Members: None Housing: Apartment Are you a primary pharmacist critical care to a significant other at home: Yes (mom, brothers) Do you presently have visiting nurse or other home services: No Alcohol intake: current Alcohol intake frequency: holidays/special occasions only Alcohol type: wine and other Patient Tobacco Use Status: Never used Tobacco e-Cigarette/Vaping Use: Never Used Second Hand Smoke Exposure: No service: No Current occupational status: unemployed 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 Moncho Barriga, Kianna Salcedo, Abbe Donato and colleagues, with an educational lorenzo from [employer]. Review of Systems Const All systems reviewed & are unremarkable except as noted in HPI and below Eyes Reports no additional complaints, Denies change in vision and Denies other visual disturbances Card Denies chest pain at rest, Denies chest pain with activity, Denies edema, Denies irregular heart rhythm, Denies claudication, Denies dyspnea, Denies dyspnea on exertion, Denies orthopnea, Denies paroxysmal nocturnal dyspnea and Denies slow heart rate Resp Denies cough, Denies dyspnea and Denies dyspnea on exertion GI Denies abdominal pain, Denies change in bowel habits, Denies excessive flatus, Denies nausea and Denies vomiting Denies urinary incontinence, Denies urinary hesitancy and Denies urinary urgency Musc Denies abnormal gait, Denies atrophy, Denies deformity and Denies limited range of motion Skin/Breast Denies bleeding lesions, Denies changing lesions and Denies rash Neuro Denies abnormal gait and Denies lack of coordination Physical exam (Primary Care) Vital Signs: Last Vital Signs BP 128/70 05/10/23 10:24 BMI result Body Mass Index 33.7 Tobacco/Smoking Status: Tobacco use Status Tobacco use date assessed 10/26/22 05/10/23 10:29 Patient Tobacco Use Status Never used Tobacco 05/10/23 10:29 Tobacco use type 10/21/22 11:48 e-Cigarette/Vaping Use Never Used 05/10/23 10:29 Thrive Assessment: Date of Thrive Assessment Date Thrive assessed 10/26/22 05/10/23 10:29 Eyes General: appearance normal, both eyes and all related structures Eyelids: Yes eyelids normal Conjunctivae: conjunctivae normal Neck Neck: Yes normal visual inspection and Yes supple Resp Effort & Inspection: normal respiratory effort Auscultation: clear to auscultation bilaterally Cardio Jugular venous distension: no JVD Rate: regular rate Rhythm: regular rhythm Heart sounds: S1 normal heart sound present and S2 normal heart sound present Extrem General: Yes full ROM Office Procedures Flu Questionnaire Does the patient have a severe egg allergy?: No Immunizations flu vacc [id number] 6mos up(PF) 60 mcg(15 mcgx4)/0.5 mL IM syringe Performing Provider: Isidra Stanton MD [facility] Documented (not given) by: ESAU Menchaca on 05/10/23 10:53 Reason Not Given: Patient Refused Assessment and Plan Assessment & Plan (1) Mild recurrent major depression: Code(s): F33.0 - Major depressive disorder, recurrent, mild Plan: Continue bupropion and sertraline. (2) GERD (gastroesophageal reflux disease): Code(s): K21.9 - Gastro-esophageal reflux disease without esophagitis Qualifiers: Esophagitis presence: esophagitis presence not specified Qualified Code(s): K21.9 - Gastro-esophageal reflux disease without esophagitis Plan: Continue PPIs (3) Autoimmune thyroiditis: Code(s): E06.3 - Autoimmune thyroiditis Plan: Continue levothyroxine. (4) Dyslipidemia: Code(s): E78.5 - Hyperlipidemia, unspecified Plan: Continue low-dose rosuvastatin and Zetia. Orders: Orders Influenza [id number] Immunization Today Z23 - Encounter for immunization Referrals Orthopedics Referral M25.562 - Pain in left knee Coding Level of Care Code Est Pt Level 4 (24935) Diagnoses Mild recurrent major depression F33.0 Gastroesophageal reflux disease, unspecified whether esophagitis present K21.9 Esophagitis presence: esophagitis presence not specified Autoimmune thyroiditis E06.3 Dyslipidemia E78.5 Time Spent (min) 23
== END 2023-05-10 10:53 | disposition home or self-care (01) ==
PROVIDERS: PCP Internal Medicine; Visit Provider Internal Medicine
DX: F33.0 Major depressive disorder, recurrent, mild (principal); K21.9 Gastro-esophageal reflux disease without esophagitis; E06.3 Autoimmune thyroiditis; E78.5 Hyperlipidemia, unspecified; Z23 Encounter for immunization
CPT/HCPCS: 90471; 99214

== ENCOUNTER 2023-05-20 16:06 | Outpatient (REF) | payer OTHER, SELFPAY | END 2023-05-20 16:07 | disposition home or self-care (01) | LOC: HO.HOSX 16:06 | PROVIDERS: Visit Provider Orthopaedic Surgery | DX: Z13.89 Encounter for screening for other disorder (principal) ==

== ENCOUNTER 2023-11-17 19:20 | Outpatient (REF) | payer OTHER, SELFPAY ==
--- NOTE | ~2023-11-17 | MR_ITS ---
EXAMINATION: MR BRAIN WITHOUT CONTRAST CLINICAL INFORMATION: Migraine COMPARISON: MRI head on 07/24/2021. TECHNIQUE: MRI of the brain was obtained using routine sequences without contrast. FINDINGS: No acute intracranial hemorrhage or infarct. Scattered and confluent periventricular and deep white matter T2/FLAIR hyperintensities, nonspecific however commonly seen with small vessel ischemic disease. No midline shift or hydrocephalus. No acute extra-axial fluid collections. The osseous structures are unremarkable. Partially empty sella, unchanged. The pineal gland and remaining midline structures are unremarkable. No orbital pathology. Mild mucosal thickening of the paranasal sinuses. The mastoid air cells are clear. MR/MR head/brain wo con IMPRESSION: No acute intracranial abnormalities. Chronic microangiopathy.
== END 2023-11-17 19:21 | disposition home or self-care (01) ==
LOC: HO.MRI 19:20
PROVIDERS: PCP Internal Medicine; Visit Provider Psychiatry & Neurology Neurology
DX: G43.909 Migraine, unspecified, not intractable, without status migrainosus (principal)
CPT/HCPCS: 70551

== ENCOUNTER 2023-11-29 13:41 | Outpatient (REF) | payer OTHER, SELFPAY ==
[2023-11-29 14:43] LABS: Alanine Aminotransferase 20 U/L (0-31); Albumin Level 4.4 g/dL (3.5-5.0); Alkaline Phosphatase 81 U/L (39-117); Anion Gap 11 (12-20); Aspartate Amino Transferase 22 U/L (5-31); Bilirubin Total 1.4 mg/dL (0.0-1.0); Blood Urea Nitrogen 11 mg/dL (9-16); Calcium 9.9 mg/dL (8.4-10.2); Carbon Dioxide 28 mmol/L (22-29); Chloride 105 mmol/L (96-108); Cholesterol 239 mg/dL (<200); Estimated Glomerular Filt Rate > 60; Glucose Fasting 109 mg/dL (60-99); HDL Cholesterol 61 mg/dL (>40); LDL Cholesterol Calculated 151 mg/dL (<100); Potassium 4.3 mmol/L (3.3-5.1); Sodium 140 mmol/L (135-145); Total Protein 7.3 g/dL (6.5-8.0); Triglycerides 135 mg/dL (<150)
[2023-11-29 14:58] LABS: Vitamin D 25-OH Total 37.8 ng/mL (>30)
[2023-11-29 14:59] LABS: Free T4 (Free Thyroxine) 1.27 ng/dL (0.71-1.85); Thyroid Stimulating Hormone 0.32 uIU/mL (0.32-4.0)
[2023-11-29 15:08] LABS: Folate 12.9 ng/mL (> or = 4.0); Vitamin B12 894 pg/mL (200-900)
== END 2023-11-29 13:42 | disposition home or self-care (01) ==
LOC: HO.LAB 13:41
PROVIDERS: PCP Internal Medicine; Visit Provider Internal Medicine Endocrinology, Diabetes & Metabolism
DX: E78.5 Hyperlipidemia, unspecified (principal); E55.9 Vitamin D deficiency, unspecified; K21.9 Gastro-esophageal reflux disease without esophagitis; E53.8 Deficiency of other specified B group vitamins; E05.00 Thyrotoxicosis with diffuse goiter without thyrotoxic crisis or storm
CPT/HCPCS: 36415; 80053; 80061; 82306; 82607; 82746; 84439; 84443

== ENCOUNTER 2023-12-08 10:45 | Outpatient (REF) | payer OTHER, SELFPAY | END 2023-12-08 10:46 | disposition home or self-care (01) | LOC: HO.MAMMO 10:45 | PROVIDERS: PCP Internal Medicine; Visit Provider Internal Medicine | DX: Z12.31 Encounter for screening mammogram for malignant neoplasm of breast (principal) | CPT/HCPCS: 77063; 77067 ==

== ENCOUNTER → 2023-12-08 11:45 | Outpatient (BNV) | payer OTHER, SELFPAY | PROVIDERS: PCP Internal Medicine; Visit Provider Radiology Diagnostic Radiology | DX: Z12.31 Encounter for screening mammogram for malignant neoplasm of breast (principal) | CPT/HCPCS: 77063; 77067 ==

== ENCOUNTER 2023-12-27 12:45 | Outpatient (AMB) | payer OTHER, SELFPAY ==
--- NOTE | 2023-12-27 12:48 | MHC.OFFVIS ---
Vital Signs 12/27/23 12:49 Height 4 ft 11 in Weight 168 lb 6.931 oz BMI 34.0 BP 138/70 Blood Pressure Location Lt brachial Position Sitting Pulse 86 Pulse Source Pulse Oximeter Intake Visit Reasons: F/U Hx of Grave's Disease/LVM Intake Note: Patient presents today for Hx of Grave's Disease, last seen by Dr. Connors 06/08/2022. Crater And Packer Required: No Accompanied by: Self / Same As Patient Allergies Penicillins [PENICILLINS] Allergy (Intermediate, Verified 12/27/23 12:56) RASH statin Adverse Reaction (Intermediate, Uncoded 12/27/23 12:56) elevated liver enzymes Medication List - Last Reconciled 12/27/23 by Moncho Love MD albuterol sulfate 90 mcg/actuation 1 inh inhalation QID PRN 30 days bupropion HCl XL 150 mg PO QAM 90 days cholecalciferol (vitamin D3) 25 mcg PO DAILY 90 days cromolyn 4% 1 drp ophthalmic (eye) QID 7 days cyclobenzaprine 5 mg PO BEDTIME PRN 30 days duloxetine 20 mg PO DAILY erythromycin 1 appl ophthalmic-Right BID 7 days ezetimibe (Zetia) 10 mg PO DAILY 90 days fluorometholone 0.1% 1 drp ophthalmic (eye) TID gabapentin 300 mg PO TID 30 days ibuprofen 800 mg PO TID PRN 30 days levothyroxine 112 mcg PO DAILY lidocaine 5% 1 patch topical DAILY 15 days magnesium 250 mg PO DAILY meclizine 25 mg PO BID PRN 5 days mecobalamin (vitamin B12) 1,000 mcg PO DAILY 60 days methylcellulose (laxative) (Citrucel) 500 mg PO DAILY nitrofurantoin monohyd/m-cryst 100 mg (Macrobid) 100 mg PO Q12H 5 days ondansetron 8 mg PO Q12H PRN 10 days pantoprazole 40 mg PO DAILY propranolol 60 mg PO DAILY 90 days rosuvastatin 20 mg PO DAILY 90 days sennosides (Natural Senna Laxative) 17.2 mg (2 x 8.6 mg) PO BEDTIME sertraline 50 mg PO DAILY Shower Chair As directed topiramate 25 mg PO DAILY 30 days trazodone 25 mg PO BEDTIME Ventolin HFA 90 mcg/actuation (albuterol sulfate) 2 puffs inhalation Q6H PRN 30 days NS vitamin A 2,400 mcg PO DAILY HPI Comments Details: 58 YO Female with PMHx postablative hypothyroidism who is seen in F/U. The patient last saw Dr. Connors 08/08/2022 ?She reports being diagnosed initially with hyperthyroidism in her 20's after the of her son. She was treated with I131 ablation, and shortly after became hypothyroid. She has remained on Levothyroxine daily. ?Labs were checked 03/18/2020 which revealed TSH low at 0.08. TPO, TG, TSI and TRAB antibodies were all positive. ?Her dose of Levothyroxine was lowered from 150 to 125 at that time. TSH has remained WNL. ?She did have a thyroid US 03/17/2021 which was WNL. ?She reports feeling well today. Has been dealing with some depression and anxiety since her Mother was placed in a chcf. She is seeing Dr. Nieves for this. She does report redness and pain in her eyes, with occasional blurred vision. She is following with Dr. Reynoso for thyroid eye disease. States she has not seen Dr. Reynoso recently ?Takes Biotin daily, but did stop this for 4 days prior to having labs done. Not currently taking biotin Labs: Laboratory Tests 07/24/21 07/24/21 12:13 12:13 25-OH Vitamin D Total 32 TSH 1.60 PFSH Medical History Uterine fibroid Fibroids Physical exam Polyarthralgia Leukopenia Ear discomfort JAXSON (generalized anxiety disorder) Moderate recurrent major depression Neck pain New daily persistent headache Postablative hypothyroidism Graves disease Severe major depression without psychotic features Left leg pain Pernicious anemia Lumbar degenerative disc disease Lumbar pain Nausea and vomiting GERD (gastroesophageal reflux disease) Hypovitaminosis D B12 deficiency Dyslipidemia Autoimmune thyroiditis Surgical History History of laparoscopic cholecystectomy Family History Father Medical history unknown Mother Chronic mental illness Diabetes Hypertension Maternal Grandfather Stroke Maternal Aunt Uterine cancer Family/Other FH: mental illness Maternal Grandmother Diabetes Social History Household Members: None Housing: Apartment Are you a primary child adolescent care to a significant other at home: Yes (mom, brothers) Do you presently have visiting nurse or other home services: No Alcohol intake: current Alcohol intake frequency: holidays/special occasions only Alcohol type: wine and other Patient Tobacco Use Status: Never used Tobacco e-Cigarette/Vaping Use: Never Used Second Hand Smoke Exposure: No service: No Current occupational status: unemployed 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 There are no thyroid nodules palpated. There is no proptosis or exophthalmos on examination Assessment & Plan Assessment & Plan (1) Graves disease: Code(s): E05.00 - Thyrotoxicosis with diffuse goiter without thyrotoxic crisis or storm Category: Medical Plan: 58-year-old female with a history of post-ablated hypothyroidism. She is currently replaced on 125 mcg levothyroxine. She appears to be clinically and biochemically euthyroid but her TSH is low normal Plan is to decrease levothyroxine to 112 mcg recheck TSH and free T4 in 6 weeks time.. I also referred her to Dr. Dior for either initial visit or follow-up with our do not see any obvious DESI Orders: Orders Thyroid Stimulating Hormone 6 Weeks E05.00 - Thyrotoxicosis with diffuse goiter without thyrotoxic crisis or storm, E89.0 - Postprocedural hypothyroidism Free T4 (Free Thyroxine) 6 Weeks E05.00 - Thyrotoxicosis with diffuse goiter without thyrotoxic crisis or storm, E89.0 - Postprocedural hypothyroidism Referrals Ophthalmology Referral E05.00 - Thyrotoxicosis with diffuse goiter without thyrotoxic crisis or storm Medications: New levothyroxine 112 mcg PO DAILY 30 tabs 5RF Discontinued levothyroxine Discontinued Reason: Doctor's Order 125 mcg PO DAILY 90 tabs 1RF 90 days Coding Level of Care Code Est Pt Level 3 (57106) Diagnoses Graves disease E05.00
[2023-12-27 12:49] VITALS: BP 138/70; PULSE 86; BMI 34.0
== END 2023-12-27 13:27 | disposition home or self-care (01) ==
PROVIDERS: PCP Internal Medicine; Visit Provider Internal Medicine Endocrinology, Diabetes & Metabolism
DX: E05.00 Thyrotoxicosis with diffuse goiter without thyrotoxic crisis or storm (principal)
CPT/HCPCS: 99213

== ENCOUNTER → 2023-12-27 12:45 | Outpatient (BNVA) | payer OTHER, SELFPAY | PROVIDERS: PCP Internal Medicine; Visit Provider Internal Medicine Endocrinology, Diabetes & Metabolism | DX: E05.00 Thyrotoxicosis with diffuse goiter without thyrotoxic crisis or storm (principal) | CPT/HCPCS: 99212 ==

== ENCOUNTER 2024-01-21 08:47 | Outpatient (AMB) | payer MEDICARE, MEDICAID, SELFPAY ==
--- NOTE | 2024-01-21 08:54 | MHC.OFFVIS ---
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 She is doing well with concerns: She reports nausea, vomiting, constipation and diarrhea, lower abdominal pain severe at times 3 major episodes of this since September. She has not discussed or seen anybody else for her GI symptoms. She reports being stressed due to her grandson's up and coming open heart surgery and that her symptoms worsen when she is upset. She admits after eating German rice last week she had a fever, had diarrhea lots of pressure and discomfort. Currently not sexually active. Slight external irritation, noticeably more so after she trims her hair.. STI testing offered; she declines. Last pap smear; 2022, negative. Last mammogram; 2023 BI-RADS 1. Colonoscopy is not UTD Denies any family history of breast or colon cancer. FH ovarian cancer-M.aunt. [facility] Medical History Uterine fibroid Fibroids Physical exam Polyarthralgia Leukopenia Ear discomfort JAXSON (generalized anxiety disorder) Moderate recurrent major depression Neck pain New daily persistent headache Postablative hypothyroidism Graves disease Severe major depression without psychotic features Left leg pain Pernicious anemia Lumbar degenerative disc disease Lumbar pain Nausea and vomiting GERD (gastroesophageal reflux disease) Hypovitaminosis D B12 deficiency Dyslipidemia Autoimmune thyroiditis Surgical History History of laparoscopic cholecystectomy Family History Father Medical history unknown Mother Chronic mental illness Diabetes Hypertension Maternal Grandfather Stroke Maternal Aunt Uterine cancer Family/Other FH: mental illness Maternal Grandmother Diabetes Social History (Updated 01/21/24 @ 09:05 by Haley Hendrickson CMA) Household Members: None Housing: Apartment Are you a primary ambulatory care coordinator to a significant other at home: Yes (mom, brothers) Do you presently have visiting nurse or other home services: No Alcohol intake: current Alcohol intake frequency: holidays/special occasions only Alcohol type: wine and other Patient Tobacco Use Status: Former Tobacco user Tobacco use type: Cigarette e-Cigarette/Vaping Use: Never Used Second Hand Smoke Exposure: No service: No Current occupational status: disabled Sexual orientation: Straight/Heterosexual Gender identity: Female Cognitive needs: No Hearing needs: No Vision needs: No Female Reproductive History Menstrual Menopause type: natural Total pregnancies: 7 Full term: 3 Number of Living Children: 3 Ab induced: 3 Ab spontaneous: 1 Date of last pap smear: 11/05/22 Date of Mammogram: 12/08/23 Review of Systems Const All systems reviewed & are unremarkable except as noted in HPI and below Reports as per HPI Eyes Reports no additional complaints ENT Reports no additional complaints Card Reports no additional complaints Resp Reports no additional complaints GI Reports as per HPI and Reports no additional complaints Reports as per HPI Musc Reports no additional complaints Skin/Breast Reports as per HPI Neuro Reports no additional complaints Psych Reports no additional complaints Endo Reports no additional complaints Jonas/Lymph Reports no additional complaints Aller/Immun Reports no additional complaints Physical Exam Vital Signs: Last Vital Signs BP 110/76 01/21/24 08:55 BMI result Body Mass Index 32.3 Const General: cooperative, healthy appearing, no acute distress, well developed and alert Orientation/consciousness: patient oriented x3 HEENT Head: Yes normal to inspection Eyes General: appearance normal, both eyes and all related structures Neck Neck: Yes normal visual inspection Thyroid: Thyroid normal Chest Chest palpation & inspection: normal inspection of the chest and other (no puckering, dimpling, peau de orange, retraction, discharge, masses) Breast/axilla inspection: normal inspection of the breasts Breast/axilla palpation: normal palpation of the breasts Resp Effort & Inspection: normal respiratory effort GI Inspection: Yes normal to inspection Palpation (GI): Soft to palpation Rectal Exam - Female: deferred Other: External evaluation: No erythema, lesions, or erosions General: Yes bladder normal to palpation External Female Exam: normal external appearance and normal appearance of the urethra Speculum Exam - Vagina: normal appearance of the vagina, normal palpation, normal vaginal discharge and vagina atrophic Speculum Exam - Cervix: normal appearance of the cervix and normal palpation Bimanual exam- vagina & uterus: normal bimanual exam, normal palpation, uterine size normal, bladder normal to palpation, normal palpation and non-tender Bimanual Exam- Adnexa, other: no masses Skin General skin exam: no rashes or lesions noted Rashes: no rashes Neuro General: patient oriented x3 Cognition (Neuro): normal cognition Extrem General: Yes normal to inspection Psych Attitude: cooperative Thought process: Normal thought process present Assessment & Plan Assessment & Plan (1) Encounter for well woman exam with routine gynecological exam: Code(s): Z01.419 - Encounter for gynecological examination (general) (routine) without abnormal findings Category: Medical (2) Pelvic pain: Code(s): R10.2 - Pelvic and perineal pain Category: Medical Plan Discussed: Current recommendations for pap smears per ASCCP guidelines. Breast awareness, periodic self breast exams and yearly mammogram. Maintain a healthy lifestyle, well balanced diet including Calcium 1,200 mg and Vitamin D 600 IU daily, and routine exercise. Use of condoms for STI if indicated. Advised to not shave off the hair but a little trimming would be okay to minimize hair growth irritation, if irritation persists despite not shaving or trimming then she should return to the office for sooner evaluation. Contact the office with any postmenopausal bleeding. Advised to see your primary care as soon as possible for all her GI discomfort and symptoms. Ordered pelvic ultrasound to assess pelvic anatomy, follow up in person for test results. Patient verbalizes understanding and agrees to the plan of care. She was given opportunity to ask questions and all questions were answered to the best of my ability. RTO in 1 year for annual breading machine tender exam. This note is constructed using voice recognition software. While every effort has been made to ensure accuracy, project geophysicist errors may have been included. Orders: Orders US OB pelvic and transvaginal Today D21.9 - Benign neoplasm of connective and other soft tissue, unspecified, R10.2 - Pelvic and perineal pain Coding Level of Care Code Est Pt Prev Care 40-64y(33633) Diagnoses Encounter for well woman exam with routine gynecological exam Z01.419 Pelvic pain R10.2
[2024-01-21 08:55] VITALS: BP 110/76; BMI 32.3
== END 2024-01-21 09:45 | disposition home or self-care (01) ==
PROVIDERS: PCP Internal Medicine; Visit Provider Advanced Practice Midwife
DX: R10.2 Pelvic and perineal pain (principal); Z01.419 Encounter for gynecological examination (general) (routine) without abnormal findings
CPT/HCPCS: 99213; G0101

== ENCOUNTER → 2024-01-21 08:47 | Outpatient (BNVA) | payer MEDICARE, MEDICAID, SELFPAY | PROVIDERS: PCP Internal Medicine; Visit Provider Advanced Practice Midwife | DX: Z01.411 Encounter for gynecological examination (general) (routine) with abnormal findings (principal); R10.2 Pelvic and perineal pain | CPT/HCPCS: 99212; G0101 ==

== ENCOUNTER 2024-03-22 14:47 | Outpatient (AMB) | payer MEDICARE, MEDICAID, SELFPAY ==
[2024-03-22 15:01] VITALS: BP 112/70; BMI 32.7
--- NOTE | 2024-03-22 15:01 | MHC.PC.OV ---
Vital Signs 03/22/24 15:01 Height 4 ft 11 in Weight 162 lb BMI 32.7 BP 112/70 Blood Pressure Location Lt brachial Position Sitting Intake Visit Reasons: PT/ Follow Up [employer] Helper Required: No Accompanied by: Self / Same As Patient Allergies Penicillins [PENICILLINS] Allergy (Intermediate, Verified 03/22/24 15:20) RASH statin Adverse Reaction (Intermediate, Uncoded 03/22/24 15:20) elevated liver enzymes Medication List - Last Reconciled 03/22/24 by Isidra Stanton MD albuterol sulfate 90 mcg/actuation 1 inh inhalation QID PRN 30 days buspirone 5 mg PO TID PRN cholecalciferol (vitamin D3) 25 mcg PO DAILY 90 days cromolyn 4% 1 drp ophthalmic (eye) QID 7 days cyclobenzaprine 5 mg PO BEDTIME PRN 30 days duloxetine 20 mg PO DAILY ezetimibe (Zetia) 10 mg PO DAILY 90 days fluorometholone 0.1% 1 drp ophthalmic (eye) TID gabapentin 300 mg PO TID 30 days ibuprofen 800 mg PO TID PRN 30 days levothyroxine 112 mcg PO DAILY lidocaine 5% 1 patch topical DAILY 15 days magnesium 250 mg PO DAILY meclizine 25 mg PO BID PRN 5 days mecobalamin (vitamin B12) 1,000 mcg PO DAILY 60 days pantoprazole 40 mg PO DAILY propranolol 60 mg PO DAILY 90 days rosuvastatin 20 mg PO DAILY 90 days sennosides (Natural Senna Laxative) 17.2 mg (2 x 8.6 mg) PO BEDTIME Shower Chair As directed topiramate 25 mg PO DAILY 30 days trazodone 25 mg PO BEDTIME Ventolin HFA 90 mcg/actuation (albuterol sulfate) 2 puffs inhalation Q6H PRN 30 days NS Tobacco use date assessed: 10/26/22 Dental Screening Dental Screen Date: 03/29/23 HPI HPI Comments History of Present Illness Details This is a 59-year-old female with GERD, dyslipidemia, autoimmune thyroiditis and mild recurrent major depression that comes today for follow-up on her conditions. GERD stable with PPIs. Last TSH was normal. Depression well controlled with duloxetine. Cholesterol was elevated the last time and this will be repeated. Denies any chest pain or shortness on breath. [facility] Medical History Uterine fibroid Fibroids Physical exam Polyarthralgia Leukopenia Ear discomfort JAXSON (generalized anxiety disorder) Moderate recurrent major depression Neck pain New daily persistent headache Postablative hypothyroidism Graves disease Severe major depression without psychotic features Left leg pain Pernicious anemia Lumbar degenerative disc disease Lumbar pain Nausea and vomiting GERD (gastroesophageal reflux disease) Hypovitaminosis D B12 deficiency Dyslipidemia Autoimmune thyroiditis Surgical History History of laparoscopic cholecystectomy Family History Father Medical history unknown Mother Chronic mental illness Diabetes Hypertension Maternal Grandfather Stroke Maternal Aunt Uterine cancer Family/Other FH: mental illness Maternal Grandmother Diabetes Social History (Updated 01/21/24 @ 09:05 by Haley Hendrickson CMA) Household Members: None Housing: Apartment Are you a primary pharmacist critical care to a significant other at home: Yes (mom, brothers) Do you presently have visiting nurse or other home services: No Alcohol intake: current Alcohol intake frequency: holidays/special occasions only Alcohol type: wine and other Patient Tobacco Use Status: Former Tobacco user Tobacco use type: Cigarette e-Cigarette/Vaping Use: Never Used Second Hand Smoke Exposure: No service: No Current occupational status: disabled Sexual orientation: Straight/Heterosexual Gender identity: Female Cognitive needs: No Hearing needs: No Vision needs: No Questionnaire PHQ-9 Over the last 2 weeks, how often have you been bothered by any of the following problems? 1. Little interest or pleasure in doing things: not at all 2. Feeling down, depressed, or hopeless: several days 3. Trouble falling or staying asleep, or sleeping too much: not at all 4. Feeling tired or having little energy: not at all 5. Poor appetite or overeating: not at all 6. Feeling bad about yourself - or that you are a failure or have let yourself or your family down: not at all 7. Trouble concentrating on things, such as reading the newspaper or watching television: several days 8. Moving or speaking so slowly that other people could have noticed. Or the opposite - being so fidgety or restless that you have been moving around a lot more than usual: not at all 9. Thoughts that you would be better off or of hurting yourself in some way: not at all Total score: 2 Depression Screening Interpretation: Positive Depression Screening Follow-up: Existing condition, In treatment and Follow-up Visit Requested Depression Screening Done: Yes 95694 - PHQ-9 Billing: Yes Source: Developed by Drs. Moncho Barriga, Kianna Salcedo, Abbe Donato and colleagues, with an educational lorenzo from [employer]. Thrive Questionnaire Date Thrive assessed: 03/22/24 I am a: Patient What is your living situation today?: I have a steady place to live Within the past 12 months, did the food you bought not last and you didn't have the money to get more?: Never true Within the past 12 months, did you worry whether your food would run out before you got money to buy more?: Never true Do you have trouble paying for medicines?: No Do you have trouble getting transportation to medical appointments?: No Do you have trouble paying your heating and electricity bill?: No Do you have trouble taking care of your child, family member or friend?: No Do you have trouble with day-to-day activities such as bathing, preparing meals, shopping, managing finances, etc.?: No Are you currently unemployed and looking for a job?: No Are you interested in more education?: No Please select the resources that you would like help with: None Currently or been in a relationship where the following occur: No concerns reported THRIVE Score: 0 AUDIT C Alcohol Use Questionnaire (AUDIT-C) 1. How often do you have a drink containing alcohol?: Never Total Score: 0 Score Reviewed/Action Taken: No JAXSON-7 AMB Questionnaire JAXSON-7 Date JAXSON - 7 assessed: 03/22/24 Feeling nervous, anxious, or on edge: 3 = Nearly every day Not being able to stop or control worryin = Not at all Worrying too much about different things: 1 = Several days Trouble relaxin = Not at all Being so restless that it is hard to sit still: 0 = Not at all Becoming easily annoyed or irritable: 3 = Nearly every day Feeling afraid as if something awful might happen: 1 = Several days Total JAXSON-7 score (0-4 normal; 5-9 mild; 10-14 moderate; 15-21 severe): 8 Source: Developed by Drs. Moncho Barriga, Kianna Salcedo, Abbe Donato and colleagues, with an educational lorenzo from [employer]. JAXSON-7 Assessment Billing JAXSON-7 Assessment Tool: JAXSON-7 Assessment 66898 Review of Systems Const All systems reviewed & are unremarkable except as noted in HPI and below Card Denies chest pain at rest, Denies chest pain with activity, Denies edema, Denies irregular heart rhythm, Denies claudication, Denies dyspnea, Denies dyspnea on exertion, Denies orthopnea, Denies paroxysmal nocturnal dyspnea and Denies slow heart rate Resp Denies cough, Denies dyspnea and Denies dyspnea on exertion GI Denies abdominal pain, Denies change in bowel habits, Denies excessive flatus, Denies nausea and Denies vomiting Denies urinary incontinence, Denies urinary hesitancy and Denies urinary urgency Musc Denies atrophy, Denies deformity and Denies limited range of motion Physical exam (Primary Care) Vital Signs: Last Vital Signs BP 112/70 03/22/24 15:01 BMI result Body Mass Index 32.7 Tobacco/Smoking Status: Tobacco use Status Tobacco use date assessed 10/26/22 03/22/24 15:14 Patient Tobacco Use Status Former Tobacco user 03/22/24 15:14 Tobacco use type Cigarette 03/22/24 15:14 e-Cigarette/Vaping Use Never Used 03/22/24 15:14 PHQ-9: PHQ-9 Score PHQ-9: Total score 2 03/22/24 15:23 Depression Screening Interpretation: Positive Depression Screening Follow-up: Existing condition, In treatment and Follow-up Visit Requested Thrive Assessment: Date of Thrive Assessment Date Thrive assessed 03/22/24 03/22/24 15:14 Currently or been in a relationship where the following occur: No concerns reported Resp Effort & Inspection: normal respiratory effort Auscultation: clear to auscultation bilaterally Cardio Jugular venous distension: no JVD Rate: regular rate Rhythm: regular rhythm Heart sounds: S1 normal heart sound present and S2 normal heart sound present GI Inspection: Yes normal to inspection Palpation (GI): Soft to palpation and nontender Auscultation: normal bowel sounds Extrem General: Yes full ROM Assessment and Plan Assessment & Plan (1) Mild recurrent major depression: Code(s): F33.0 - Major depressive disorder, recurrent, mild Plan: Continue duloxetine. (2) Dyslipidemia: Code(s): E78.5 - Hyperlipidemia, unspecified Plan: Continue statins and Zetia. Advise low-cholesterol diet. (3) Autoimmune thyroiditis: Code(s): E06.3 - Autoimmune thyroiditis Plan: Continue levothyroxine. Monitor TSH. (4) GERD (gastroesophageal reflux disease): Code(s): K21.9 - Gastro-esophageal reflux disease without esophagitis Qualifiers: Esophagitis presence: esophagitis presence not specified Qualified Code(s): K21.9 - Gastro-esophageal reflux disease without esophagitis Plan: Continue PPIs. Orders: Orders Lipid Panel 03/22/24 E78.5 - Hyperlipidemia, unspecified Vitamin D 25-OH Total 03/22/24 E55.9 - Vitamin D deficiency, unspecified Thyroid Stimulating Hormone 03/22/24 E06.3 - Autoimmune thyroiditis Comprehensive [place]. Panel Fast 03/22/24 R10.2 - Pelvic and perineal pain Medications: New diclofenac sodium 1% (Aleve (diclofenac)) apply to single elbow, wrist or hand; for hand includes palm/fingers/back of hand 2 grams topical QID 30 days 100 grams 0RF Refilled albuterol sulfate 90 mcg/actuation 1 inh inhalation QID 30 days PRN 6.7 grams 1RF shortness of breath or wheezing cromolyn 4% 1 drp ophthalmic (eye) QID 7 days 10 mL 0RF ezetimibe (Zetia) 10 mg PO DAILY 90 days 90 tabs 1RF meclizine 25 mg PO BID 5 days PRN 10 tabs 0RF dizziness cholecalciferol (vitamin D3) 25 mcg PO DAILY 90 days 90 caps 1RF pantoprazole take one tablet half an hour before breakfast 40 mg PO DAILY 90 tabs 2RF K21.9 - Gastro-esophageal reflux disease without esophagitis rosuvastatin 20 mg PO DAILY 90 days 90 tabs 1RF topiramate 25 mg PO DAILY 30 days 30 caps 0RF levothyroxine 112 mcg PO DAILY 30 tabs 5RF cyclobenzaprine 5 mg PO BEDTIME 30 days PRN 30 tabs 0RF muscle spasm ibuprofen 800 mg PO TID 30 days PRN 90 tabs 0RF fever or pain mecobalamin (vitamin B12) allow to dissolve in mouth OR may chew lightly before swallowing 1,000 mcg PO DAILY 60 days 60 ea 4RF sennosides (Natural Senna Laxative) 17.2 mg (2 x 8.6 mg) PO BEDTIME 60 tabs 3RF constipation K59.00 - Constipation, unspecified Coding Level of Care Code Est Pt Level 4 (26662) Complex EM visit Add On G2211 Diagnoses Mild recurrent major depression F33.0 Dyslipidemia E78.5 Autoimmune thyroiditis E06.3 Gastroesophageal reflux disease, unspecified whether esophagitis present K21.9 Esophagitis presence: esophagitis presence not specified Additional Codes JAXSON-7 Assessment Billing - JAXSON-7 Assessment Tool: JAXSON-7 Assessment 95301 ([id number]) Time Spent (min) 23
== END 2024-03-22 15:37 | disposition home or self-care (01) ==
PROVIDERS: PCP Internal Medicine; Visit Provider Internal Medicine
DX: F33.0 Major depressive disorder, recurrent, mild (principal); E78.5 Hyperlipidemia, unspecified; E06.3 Autoimmune thyroiditis; K21.9 Gastro-esophageal reflux disease without esophagitis
CPT/HCPCS: 96127; 99214; G2211

== ENCOUNTER 2024-08-10 09:32 | Emergency (ER) | payer MEDICARE, MEDICAID, SELFPAY ==
--- NOTE | 2024-08-10 | ECG_ITS ---
Test Reason : CHEST PAIN Blood Pressure : / mmHG Vent. Rate : 056 BPM Atrial Rate : 056 BPM P-R Int : 152 ms QRS Dur : 080 ms QT Int : 416 ms P-R-T Axes : 044 -02 011 degrees QTc Int : 401 ms Sinus bradycardia Otherwise normal ECG When compared with ECG of 03-NOV-2012 09:01, No significant change was found Referred By: Generic ED Physician Electronically Signed By:NHI HUDSON MD
--- NOTE | ~2024-08-10 | CT_ITS ---
EXAMINATION: CT ANGIOGRAM CHEST CLINICAL INFORMATION: Left-sided chest pain. Rule out the COMPARISON: None available. TECHNIQUE: Multiple axial images were obtained through the chest after the administration of 65 mL of Omnipaque 350 intravenous contrast. Extensive vascular post-processing including two-dimensional and three-dimensional reformatted images were created and reviewed on an independent workstation. This CT examination was performed using dose optimization techniques as appropriate, variously including the following: *Automated exposure control *Adjustment of mA and/or kV according to patient size (this includes techniques or standardized protocols for targeted exams where dose is matched to indication/reason for exam; i.e. extremities or head) *Use of iterative reconstruction technique DLP: 303 mGy-cm FINDINGS: Vascular: There is good opacification of pulmonary artery and its branches without intraluminal filling defect or narrowing. The thoracic aorta is of normal caliber without any evidence of aneurysm. A normal three-vessel branching of the aortic arch is noted. No pericardial effusion. The heart size is normal. There is herniation of intraperitoneal fat through the esophageal hiatus. Nonvascular: There is centrilobular emphysema with dependent bibasilar atelectasis. There is no pleural effusion or thickening. Central trachea and the bronchi are widely patent. No abnormal size mediastinal or hilar lymphadenopathy seen. The thyroid lobes are symmetrical. The axilla are symmetrical and unremarkable. The chest wall is unremarkable. Visualized liver, spleen and pancreas is unremarkable. The gallbladder has been surgically removed. Bone windows reveal no visible rib or thoracic vertebral fractures. There is mild ventral spondylosis.. The chest wall is unremarkable. CT/CT angio chest PE protocol IMPRESSION: No evidence of PE. No evidence of aortic aneurysm. Fleischner guidelines were followed. Electronically signed by: Graeme Tabor MD 08/10/2024 12:38 PM EST
[2024-08-10 09:44] VITALS: BP 171/71; PULSE 55; RESP 18; TEMP 36.6; O2SAT 97; BMI 32.3
[2024-08-10 10:09] LABS: MANUAL DIFF FLAG NO
[2024-08-10 10:10] LABS: Basophils Percent Auto 0.3 % (0-2); Eosinophils Absolute Auto 0.1 X10*3/uL (0.0-0.4); Eosinophils Percent Auto 1.3 % (0-4); Hematocrit 40.9 % (37.0-47.0); Imm Gran Abs Auto 0.01 X10*3/uL (0.00-0.03); Imm Gran Pct Auto 0.3 % (0.0-0.4); Lymphocytes Absolute Auto 1.1 X10*3/uL (1.2-4.9); Lymphocytes Percent Auto 27.3 % (20-40); Mean Corpuscular HGB Conc 34.2 g/dl (31.0-35.0); Mean Corpuscular Hemoglobin 28.8 pg (27.0-33.0); Mean Corpuscular Volume 84.2 fL (80.0-98.0); Mean Platelet Volume 11.6 fL (9.4-12.3); Monocytes Absolute Auto 0.3 X10*3/uL (0.1-1.2); Monocytes Percent Auto 7.4 % (2-11); Neutrophils Absolute Auto 2.5 x10*3/uL (2.0-8.3); Neutrophils Percent Auto 63.4 % (45-73); Platelet Count 150 X10*3/uL (160-400); Red Blood Count 4.86 X10*6/uL (4.20-5.50); Red Cell Distribution Width 12.6 % (11.0-16.0); White Blood Count 3.9 X10*3/uL (4.8-10.8)
[2024-08-10 10:16] LABS: INTERNATIONAL NORM RATIO 0.9 (0.9-1.1); Prothrombin Time 10.5 SEC (10.9-12.4)
[2024-08-10 10:29] LABS: Anion Gap 13 (12-20); Blood Urea Nitrogen 11 mg/dL (9-16); Calcium 9.2 mg/dL (8.4-10.2); Carbon Dioxide 22 mmol/L (22-29); Chloride 109 mmol/L (96-108); Creatinine Clr Calc Pharmacy 73.2; Estimated Glomerular Filt Rate > 60; Glucose Random 114 mg/dL (60-115); Potassium 4.1 mmol/L (3.3-5.1); Sodium 140 mmol/L (135-145)
[2024-08-10 10:39] LABS: Troponin-I High Sensitivity < 2.7 ng/L (<3.5-17.0)
[2024-08-10 11:05] LABS: Influenza A PCR NEGATIVE (Negative); Influenza B PCR NEGATIVE (Negative); Resp Syncy Virus RNA Qual PCR NEGATIVE (Negative); SARS COV2 PCR INHOUSE NEGATIVE (Negative)
[2024-08-10 11:18] LABS: Appearance Urine Clear; Color Urine Yellow; Glucose Urine UA Negative (Negative); Leukocyte Esterase Urine Negative (Negative); Nitrite Urine Negative (Negative); PH 5.5 (5.0-9.0); Urine Blood Negative (Negative); Urine Ketones Negative (Negative); Urine Protein Negative (Neg-Trace)
[2024-08-10 11:20] LABS: Bacteria Urine None Seen (None Seen); Hyaline Casts Urine 0-2 /LPF (0-2); RBC Urine 0-2 /HPF (0-2); Squamous Epithelial Cell Urine 0-2 /HPF (0-2); WBC Urine 0-5 /HPF (0-5)
--- NOTE | 2024-08-10 11:35 | ED_ITS ---
HPI - Chest Pain General Chief Complaint: Chest Pain Stated Complaint: CP Time Seen by Provider: 08/10/24 11:09 Source: patient Mode of arrival: ambulatory Limitations: no limitations History of Present Illness ED Provider: KIM GANDARA PA-C HPI narrative: 59 year old female with pmhx significant for hypertension, hypothyroidism, GERD, lumbar DDD, depression presents to the ED today for evaluation of stabbing left sided chest pain x5 days. She admits to increased life stressors as her mentally disabled brother was recently admitted to [facility] and was declared brain . She has been dealing with this and has been at [facility] every day by her brother's side. She states that while at [facility] on Wednesday, she began to complain of left-sided chest pain. They checked her blood pressure there and it was noted to be 170s/80's. She has continued to have intermittent left-sided chest pain since this time. Chest pain radiates to left shoulder and wraps around to her left back. Pain is worse with deep breathing, palpation of the chest, and movement. Pain last night was 10/10., now 6-7/10. She did not trial any OTC medications for pain at home. She tells me that she saw her vascular technologist sonographer back in December and it was recommended that she stop taking her propranolol. Since this time, her hypertension has been on managed with medications. She has been following up with her PCP, Dr. Nieves and was reportedly told that her blood pressure was well controlled without medications. She was not restarted on any antihypertensive. She denies any SI/HI surrounding her current situation. No etoh consumption. No ilicit substance use. She also reports chronic N/V, abd pain x1 months. Has since followed up with her PCP who has provided her with a referral to a GI specialist. She has been unable to follow up with the GI specialist as she has been dealing with her brother's health. Related Data Home Medications ?Medication ?Instructions ?Recorded ?Confirmed magnesium 250 mg tablet 250 mg PO DAILY 10/26/22 03/22/24 duloxetine 20 mg capsule,delayed 20 mg PO DAILY 03/29/23 03/22/24 release fluorometholone 0.1 % eye 1 drp ophthalmic (eye) TID 03/29/23 03/22/24 drops,suspension trazodone 50 mg tablet 25 mg PO BEDTIME 03/29/23 03/22/24 buspirone 5 mg tablet 5 mg PO TID PRN anxiety 03/22/24 03/22/24 Previous Rx's ?Medication ?Instructions ?Recorded gabapentin 300 mg capsule 300 mg PO TID 30 days #90 caps 09/04/21 Shower Chair #1 ea 10/17/21 Ventolin HFA 90 mcg/actuation 2 puff inhalation Q6H PRN 01/27/23 aerosol inhaler (albuterol sulfate) shortness of breath or wheezing 30 days #8 grams propranolol 60 mg tablet 60 mg PO DAILY 90 days #90 tabs 08/12/23 albuterol sulfate 90 mcg/actuation 1 inh inhalation QID PRN shortness 03/22/24 aerosol inhaler of breath or wheezing 30 days #6.7 grams cholecalciferol (vitamin D3) 25 25 mcg PO DAILY 90 days #90 caps 03/22/24 mcg (1,000 unit) capsule cromolyn 4 % eye drops 1 drp ophthalmic (eye) QID 7 days 03/22/24 #10 mL cyclobenzaprine 5 mg tablet 5 mg PO BEDTIME PRN muscle spasm 03/22/24 30 days #30 tabs diclofenac sodium 1 % topical gel 2 g topical QID 30 days #100 grams 03/22/24 (Aleve (diclofenac)) ezetimibe 10 mg tablet (Zetia) 10 mg PO DAILY 90 days #90 tabs 03/22/24 ibuprofen 800 mg tablet 800 mg PO TID PRN fever or pain 30 03/22/24 days #90 tabs levothyroxine 112 mcg tablet 112 mcg PO DAILY #30 tabs 03/22/24 meclizine 25 mg tablet 25 mg PO BID PRN dizziness 5 days 03/22/24 #10 tabs mecobalamin (vitamin B12) 1,000 1,000 mcg PO DAILY 60 days #60 ea 03/22/24 mcg lozenges pantoprazole 40 mg tablet,delayed 40 mg PO DAILY #90 tabs 03/22/24 release rosuvastatin 20 mg tablet 20 mg PO DAILY 90 days #90 tabs 03/22/24 sennosides 8.6 mg tablet (Natural 17.2 mg (2 x 8.6 mg) PO BEDTIME 03/22/24 Senna Laxative) constipation #60 tabs rizatriptan 10 mg tablet 10 mg PO Q2-4H PRN migraine 03/29/24 headache 30 days #10 tabs topiramate 25 mg sprinkle capsule 25 mg PO DAILY 30 days #30 caps 05/09/24 lidocaine 5 % topical patch 1 patch topical DAILY 15 days #15 06/27/24 ea cholestyramine (with sugar) 4 gram 4 g PO DAILY 60 days #60 ea 07/07/24 powder for susp in a packet lidocaine 5 % topical patch 1 patch topical DAILY #15 ea 08/10/24 (Lidoderm) naproxen 500 mg tablet 500 mg PO Q12H PRN pain (scale 08/10/24 score 1-3) #20 tabs Allergies Allergy/AdvReac Type Severity Reaction Status Date / Time Penicillins [PENICILLINS] Allergy Intermediate RASH Verified 08/10/24 09:54 statin AdvReac Intermediate elevated Uncoded 08/10/24 09:54 liver enzymes Review of Systems 2 Review of Systems: Constitutional: No fever, chills, fatigue, night sweats, weight changes ENT/Mouth: No ear pain, hearing loss, nasal congestion, sinus pain, rhinorrhea, sore throat Eyes: No eye pain, swelling, redness, vision changes, discharge Cardio: No palpitations, JIMENEZ, orthopnea, peripheral edema, +left chest pain Pulm: No SOB, cough, sputum, wheezing, dyspnea, hemoptysis GI: No nausea, vomiting, hematemesis, abdominal pain, diarrhea, constipation, hematochezia, melena : No irregular bleeding, dysuria, frequency, urgency, hesitancy, hematuria, flank pain, urinary flow changes, urinary incontinence or retention MSK: No back pain, neck pain, joint pain, myalgias Skin: No lesions, rashes Neuro: No weakness, numbness, paresthesias, LOC, dizziness, headache Psych: No anxiety/panic, depression, SI/HI, AH/VH All other systems reviewed and are negative. [facility] Past Medical History Attestation statement: The following information was validated with the patient. Source: old records reviewed and nursing notes reviewed Medical History Uterine fibroid Fibroids Physical exam Polyarthralgia Leukopenia Ear discomfort JAXSON (generalized anxiety disorder) Moderate recurrent major depression Neck pain New daily persistent headache Postablative hypothyroidism Graves disease Severe major depression without psychotic features Left leg pain Pernicious anemia Lumbar degenerative disc disease Lumbar pain Nausea and vomiting GERD (gastroesophageal reflux disease) Hypovitaminosis D B12 deficiency Dyslipidemia Autoimmune thyroiditis Surgical History History of laparoscopic cholecystectomy Family History Family History Father Medical history unknown Mother Chronic mental illness Diabetes Hypertension Maternal Grandfather Stroke Maternal Aunt Uterine cancer Family/Other FH: mental illness Maternal Grandmother Diabetes Social History Social History Household Members: None Housing: Apartment Are you a primary care companion to a significant other at home: Yes (mom, brothers) Do you presently have visiting nurse or other home services: No Alcohol intake: current Alcohol intake frequency: does not drink Alcohol type: wine and other Patient Tobacco Use Status: Former Tobacco user Tobacco use type: Cigarette Smoked in Last 30 Days: No e-Cigarette/Vaping Use: Never Used Second Hand Smoke Exposure: No Use of substances other than those prescribed or required for medical reasons: No Advance Directives: No Advance Directives Information Provided: No Do you have a plan to hurt others: No Plan service: No Current occupational status: disabled Sexual orientation: Straight/Heterosexual Gender identity: Female Cognitive needs: No Hearing needs: No Vision needs: No Physical Exam 2 Vital Signs: Vital Signs: Last Vital Signs Temp 98.4 F 08/10/24 13:56 Pulse 48 L 08/10/24 13:56 Resp 18 08/10/24 13:56 BP 167/64 H 08/10/24 13:56 Pulse Ox 98 08/10/24 13:56 O2 Del Method Room Air 08/10/24 13:56 BMI result Body Mass Index 32.3 hypertensive, vitals are otherwise wnl General: Well appearing, in no acute distress. Skin: Warm, dry, intact. No rashes or lesions. Head: Normocephalic, atraumatic. EENT: Hearing is intact b/l. Conjunctiva clear. PERRLA. EOM intact. Moist mucous membranes.? Neck: Supple without LAD. FROM. Trachea midline.? Cardiac: RRR + reproducible tenderness with palpation of the left anterior, left lateral and left posterior chest wall without palpable deformity or crepitus. Symmetric rise and fall of chest. Lungs: Normal respiratory effort without accessory muscle use. CTA bilaterally. Abdomen: Soft, non-tender, non-distended Back: No midline spinous or paraspinal tenderness. No step off deformity. Ext: Upper and lower extremities atraumatic, without tenderness, deformity, swelling or erythema. no pitting edema. Neuro: AOx3. Normal speech. Ambulating with steady gait. Psych: Appropriate mood and affect. Responds appropriately to questions. Course Course Course Narrative: CBC without leukocytosis or left shift. no anemia, h&h stable. Chemistry without acute electrolyte abnormality requiring intervention. No DANICA. TSH slightly decreased to 0.26, T wnl. Troponin undetectable. Given onset of symptoms to ED presentation, delta not warranted at this time. EKG shows sinus bradycardia with a rate of 56 beats per minute. There are no acute ischemic changes or ST elevations. CT angio chest does not demonstrate pulmonary embolism. > on re-evaluation, patient reports complete symptom resolution after receiving Toradol. Given reproducible tenderness and improvement with NSAIDs, patient's pain is likely musculoskeletal. advised for continued NSAID treatment outpatient. naproxen sent to pharmacy > I did informed patient of her low TSH levels. she has been slightly bradycardic to 48-55 bpm while in ED. I doubt levothyroxine SE as this should cause tachycardia. She is no longer on a beta sharonda. I advised her to follow up with her vascular technologist sonographer and to call them tomorrow morning to schedule an appointment. Her blood pressures have been slightly elevated in the ED today, improved. Last documented temperature was 167/64 however when I was speaking to patient in room, her blood pressure was 140s over 80s. Will hold off on starting patient on an antihypertensive at this time. Discussed case with Dr. Stearns who feels discharge w/ outpatient follow up is reasonable. patient agreeable with this. Patient has remained stable throughout ED visit today. Discussed worrisome signs and symptoms and when to return to the ED. All questions answered at this time. Patient is agreeable with disposition and stable for discharge. Medications Administered Discontinued Medications Generic Name Dose Route Start Last Admin Trade Name Freq PRN Reason Stop Dose Admin Iohexol 100 ml 08/10/24 12:04 08/10/24 12:04 Iohexol 350 Mg/Ml 100 Ml Infus..Btl IV 08/10/24 12:05 65 ml ONCE ONE Administration Ketorolac Tromethamine 15 mg 08/10/24 12:09 08/10/24 12:52 Ketorolac Tromethamine 15 Mg/Ml Vial IVPUSH 08/10/24 12:10 15 mg ONCE ONE Administration Medical Decision Making Medical Decision Making [facility] Narrative: 59 year old female with pmhx significant for hypertension, hypothyroidism, GERD, lumbar DDD, depression presents to the ED today for evaluation of stabbing left sided chest pain x5 days. Patient hypertensive to 171/71 on arrival. Vitals otherwise WNL. She is nontoxic appearing in no acute distress. Lying comfortably on the exam bed. Exam significant for reproducible tenderness with palpation of the left anterior, left lateral and left posterior chest wall without palpable deformity or crepitus. Symmetric rise and fall of chest. Lungs are CTA bilaterally. This patient presents with chest pain, with symptoms suggestive of noncardiac chest pain.? History without high risk features (not substernal, no exertional component, not relieved with rest).? Exam without evidence of volume overload. EKG without signs of active ischemia. ? Given the timing of pain to ED presentation, plan to send single troponin to evaluate for NSTEMI. PERC 1 - will obtained CTA chest to r/o PE. Presentation not consistent with pneumothorax, thoracic aortic dissection, cardiac effusion or tamponade. Differential diagnosis also includes costochondritis, pleuritis, arrhythmia, thyroiditis Plan: labs, troponin, EKG, CT chest, pain control, reassessment Differential Diagnosis As above Admission/Observation Not indicated Lab Data [facility] Lab Attestation statement: I reviewed the patient's lab results. As above 08/10/24 10:03 08/10/24 10:03 Labs: Lab Results 08/10/24 08/10/24 Range/Units 10:03 11:06 WBC 3.9 L (4.8-10.8) X10*3/uL RBC 4.86 (4.20-5.50) X10*6/uL Hgb 14.0 (12.0-16.0) g/dl Hct 40.9 (37.0-47.0) % MCV 84.2 (80.0-98.0) fL MCH 28.8 (27.0-33.0) pg MCHC 34.2 (31.0-35.0) g/dl RDW 12.6 (11.0-16.0) % Plt Count 150 L (160-400) X10*3/uL MPV 11.6 (9.4-12.3) fL Immature Gran % (Auto) 0.3 (0.0-0.4) % Neut % (Auto) 63.4 (45-73) % Lymph % (Auto) 27.3 (20-40) % Craig % (Auto) 7.4 (2-11) % Eos % (Auto) 1.3 (0-4) % Baso % (Auto) 0.3 (0-2) % Lymph # (Auto) 1.1 L (1.2-4.9) X10*3/uL Craig # (Auto) 0.3 (0.1-1.2) X10*3/uL Eos # (Auto) 0.1 (0.0-0.4) X10*3/uL Baso # (Auto) 0.0 (0.0-0.2) X10*3/uL Abs Immat Gran (auto) 0.01 (0.00-0.03) X10*3/uL Absolute Neuts (auto) 2.5 (2.0-8.3) x10*3/uL Absolute Nucleated RBC 0.000 (0.0-0.012) X10*3/uL Nucleated RBC % (auto) 0.0 (0.0-0.2) /100WBC PT 10.5 L (10.9-12.4) SEC INR 0.9 (0.9-1.1) APTT 28.0 (26.0-36.8) SEC Sodium 140 (135-145) mmol/L Potassium 4.1 (3.3-5.1) mmol/L Chloride 109 H (96-108) mmol/L Carbon Dioxide 22 (22-29) mmol/L Anion Gap 13 (12-20) BUN 11 (9-16) mg/dL Creatinine 0.70 (0.5-1.4) mg/dL Estim Creat Clear Calc 73.2 Estimated GFR > 60 Random Glucose 114 (60-115) mg/dL Calcium 9.2 D (8.4-10.2) mg/dL Troponin I High Sens < 2.7 (<3.5-17.0) ng/L TSH 0.26 L (0.32-4.0) uIU/mL Free T4 1.50 (0.71-1.85) ng/dL Urine Color Yellow Urine Appearance Clear Urine pH 5.5 (5.0-9.0) Ur Specific [place] 1.020 (1.005-1.025) Urine Protein Negative (Neg-Trace) mg/dL Urine Glucose (UA) Negative (Negative) mg/dL Urine Ketones Negative (Negative) mg/dL Urine Blood Negative (Negative) Urine Nitrite Negative (Negative) Ur Leukocyte Esterase Negative (Negative) Urine RBC 0-2 (0-2) /HPF Urine WBC 0-5 (0-5) /HPF Ur Squamous Epith Cells 0-2 (0-2) /HPF Urine Bacteria None Seen (None Seen) Hyaline Casts 0-2 (0-2) /LPF Influenza Type A (PCR) NEGATIVE (Negative) Influenza Type B (PCR) NEGATIVE (Negative) RSV RNA Qual (PCR) NEGATIVE (Negative) SARS-CoV-2 RNA (RT-PCR) NEGATIVE (Negative) Independent Interpretation I performed an independent interpretation of an: EKG and CT Scan Interpretation: EKG showing sinus bradycardia with a rate of 56 beats per minute, QT 416, QTC 401, no acute ischemic changes or ST elevations. CT angio chest without embolism Radiology Impression Discussion of test interpretation with radiology: I have reviewed the radiologist's reading. Radiologist Impression: Ordering Physician: Kim Gandara Date of Service: 08/10/24 Procedure(s): CT angio chest PE protocol Accession Number(s): [id number] cc: Kim Gandara; Isidra Nicholas MD~ Report Number: [id number]: Total DLP = 303.00 mGy-cm EXAMINATION: CT ANGIOGRAM CHEST CLINICAL INFORMATION: Left-sided chest pain. Rule out the COMPARISON: None available. TECHNIQUE: Multiple axial images were obtained through the chest after the administration of 65 mL of Omnipaque 350 intravenous contrast. Extensive vascular post-processing including two-dimensional and three-dimensional reformatted images were created and reviewed on an independent workstation. This CT examination was performed using dose optimization techniques as appropriate, variously including the following: *Automated exposure control *Adjustment of mA and/or kV according to patient size (this includes techniques or standardized protocols for targeted exams where dose is matched to indication/reason for exam; i.e. extremities or head) *Use of iterative reconstruction technique DLP: 303 mGy-cm FINDINGS: Vascular: There is good opacification of pulmonary artery and its branches without intraluminal filling defect or narrowing. The thoracic aorta is of normal caliber without any evidence of aneurysm. A normal three-vessel branching of the aortic arch is noted. No pericardial effusion. The heart size is normal. There is herniation of intraperitoneal fat through the esophageal hiatus. Nonvascular: There is centrilobular emphysema with dependent bibasilar atelectasis. There is no pleural effusion or thickening. Central trachea and the bronchi are widely patent. No abnormal size mediastinal or hilar lymphadenopathy seen. The thyroid lobes are symmetrical. The axilla are symmetrical and unremarkable. The chest wall is unremarkable. Visualized liver, spleen and pancreas is unremarkable. The gallbladder has been surgically removed. Bone windows reveal no visible rib or thoracic vertebral fractures. There is mild ventral spondylosis.. The chest wall is unremarkable. CT/CT angio chest PE protocol IMPRESSION: No evidence of PE. No evidence of aortic aneurysm. Fleischner guidelines were followed. Electronically signed by: Graeme Tabor MD 08/10/2024 12:38 PM [facility] [place] External Record Review External record reviewed: Inpatient record, Office record, Outpatient record, Prior outpatient labs, Prior outpatient radiology, Primary care record and Outside ED record Prescription Management I considered prescription management with: Pain Medication (Naproxen) Chronic Conditions Patient?s care impacted by: Hypertension and Other (Hypothyroid) Social Determinants Patient?s care significantly limited by Social Determinants of Health including: Other Social Determinant of Health Critical Care Time Critical Care Time Critical Care Time: No Discharge Plan Discharge Clinical Impression: Atypical chest pain Patient Disposition: Home, Self-Care Instructions: Noncardiac Chest Pain (ED), Chest Wall Pain (ED) Additional Instructions: You were evaluated in the Emergency Department today for chest pain. Your evaluation has shown no signs of medical conditions requiring emergent intervention at this time, however I recommend that you follow up with your primary care provider as soon as possible for further testing as an outpatient. As discussed, call your vascular technologist sonographer tomorrow to follow up regarding thyroid testing/ medication. Naproxen is an anti-inflammatory pain medication that has been sent to your pharmacy for you to take as needed for pain. Do not take this with other NSAIDs such as ibuprofen as this can increase risk of GI bleeding/ irritation. I have also sent lidocaine patches to your pharmacy. Apply these to painful areas. Return to the Emergency Department if you experience worsening or uncontrolled chest pain, shortness of breath, light headedness, feeling faint, nausea, vomiting, or any other concerning symptoms. Prescriptions: New lidocaine [Lidoderm] 5 % adhesive patch,medicated 1 patch topical DAILY Qty: 15 0RF Rx Instructions: leave on most painful area for up to 12 hrs naproxen 500 mg tablet 500 mg PO Q12H PRN (Reason: pain (scale score 1-3)) Qty: 20 0RF No Action gabapentin 300 mg capsule 300 mg PO TID 30 Days Qty: 90 0RF (DME) Shower Chair Misc See Rx Instructions .ROUTE .MEDSUPPLY Qty: 1 0RF Rx Instructions: As directed albuterol sulfate [Ventolin HFA] 90 mcg/actuation HFA aerosol inhaler 2 puff inhalation Q6H PRN (Reason: shortness of breath or wheezing) 30 Days Qty: 8 0RF propranolol 60 mg tablet 60 mg PO DAILY 90 Days Qty: 90 1RF rizatriptan 10 mg tablet 10 mg PO Q2-4H PRN (Reason: migraine headache) 30 Days Qty: 10 0RF Rx Instructions: do not exceed 3 doses per 24 hrs topiramate 25 mg capsule, sprinkle 25 mg PO DAILY 30 Days Qty: 30 0RF lidocaine 5 % adhesive patch,medicated 1 patch topical DAILY 15 Days Qty: 15 0RF Rx Instructions: leave on most painful area for up to 12 hrs cholestyramine (with sugar) 4 gram powder in packet 4 g PO DAILY 60 Days Qty: 60 3RF Rx Instructions: administer w/meal; avoid other meds within 1hr before or 4-6hr after dose fluorometholone 0.1 % drops,suspension 1 drp ophthalmic (eye) TID trazodone 50 mg tablet 25 mg PO BEDTIME duloxetine 20 mg capsule,delayed release(DR/EC) 20 mg PO DAILY magnesium 250 mg tablet 250 mg PO DAILY buspirone 5 mg tablet 5 mg PO TID PRN (Reason: anxiety) albuterol sulfate 90 mcg/actuation HFA aerosol inhaler 1 inh inhalation QID PRN (Reason: shortness of breath or wheezing) 30 Days Qty: 6.7 1RF cromolyn 4 % drops 1 drp ophthalmic (eye) QID 7 Days Qty: 10 0RF ezetimibe [Zetia] 10 mg tablet 10 mg PO DAILY 90 Days Qty: 90 1RF levothyroxine 112 mcg tablet 112 mcg PO DAILY Qty: 30 5RF meclizine 25 mg tablet 25 mg PO BID PRN (Reason: dizziness) 5 Days Qty: 10 0RF diclofenac sodium [Aleve (diclofenac)] 1 % gel 2 g topical QID 30 Days Qty: 100 0RF Rx Instructions: apply to single elbow, wrist or hand; for hand includes palm/fingers/back of hand cholecalciferol (vitamin D3) 25 mcg (1,000 unit) capsule 25 mcg PO DAILY 90 Days Qty: 90 1RF cyclobenzaprine 5 mg tablet 5 mg PO BEDTIME PRN (Reason: muscle spasm) 30 Days Qty: 30 0RF ibuprofen 800 mg tablet 800 mg PO TID PRN (Reason: fever or pain) 30 Days Qty: 90 0RF mecobalamin (vitamin B12) 1,000 mcg lozenge 1,000 mcg PO DAILY 60 Days Qty: 60 4RF Rx Instructions: allow to dissolve in mouth OR may chew lightly before swallowing pantoprazole 40 mg tablet,delayed release (DR/EC) 40 mg PO DAILY Qty: 90 2RF Rx Instructions: take one tablet half an hour before breakfast sennosides [Natural Senna Laxative] 8.6 mg tablet 17.2 mg PO BEDTIME Qty: 60 3RF rosuvastatin 20 mg tablet 20 mg PO DAILY 90 Days Qty: 90 1RF [place] [facility] [place] [facility] [place] Group] [facility] [place] [place] Group] Isidra Nicholas MD [Primary Care Provider] - Print Language: Indonesian
[2024-08-10] MEDS: iohexoL 350 MG/ML 100 ML INFUS..BTL IV (12:04)
[2024-08-10 12:37] LABS: TSH reflex Free T4 0.26 uIU/mL (0.32-4.0)
[2024-08-10] MEDS: Ketorolac Tromethamine 15 MG/ML VIAL IVPUSH (12:52)
[2024-08-10 13:56] VITALS: BP 167/64; PULSE 48; RESP 18; TEMP 36.9; O2SAT 98
[2024-08-10 14:52] VITALS: BP 167/64; PULSE 48; RESP 18; TEMP 36.9; O2SAT 98
== END 2024-08-10 14:52 | disposition home or self-care (01) ==
PROVIDERS: Physician Assistant Medical; Emergency Provider Emergency Medicine; PCP Internal Medicine
DX: R07.89 Other chest pain (principal); R00.1 Bradycardia, unspecified; Z87.891 Personal history of nicotine dependence; Z03.818 Encounter for observation for suspected exposure to other biological agents ruled out; Z79.899 Other long term (current) drug therapy
CPT/HCPCS: 0241U; 36415; 71275; 80048; 81001; 84439; 84443; 84484; 85025; 85610; 85730; 93005; 96374; 99284; 99285; J1885; Q9967

== ENCOUNTER → 2024-08-10 09:39 | Outpatient (BNV) | payer MEDICARE, MEDICAID, SELFPAY | PROVIDERS: Emergency Provider Emergency Medicine; PCP Internal Medicine; Visit Provider Internal Medicine Cardiovascular Disease | DX: R07.9 Chest pain, unspecified (principal); R00.1 Bradycardia, unspecified | CPT/HCPCS: 93010 ==

== ENCOUNTER → 2024-08-10 11:49 | Outpatient (BNV) | payer MEDICARE, MEDICAID, SELFPAY | PROVIDERS: Emergency Provider Emergency Medicine; PCP Internal Medicine; Visit Provider Radiology Diagnostic Radiology | DX: R07.89 Other chest pain (principal) | CPT/HCPCS: 71275 ==

== ENCOUNTER 2024-09-05 09:43 | Outpatient (REF) | payer MEDICARE, MEDICAID, SELFPAY ==
[2024-09-05 12:03] LABS: Alanine Aminotransferase 15 U/L (0-31); Albumin Level 4.4 g/dL (3.5-5.0); Alkaline Phosphatase 74 U/L (39-117); Anion Gap 11 (12-20); Aspartate Amino Transferase 24 U/L (5-31); Bilirubin Total 1.6 mg/dL (0.0-1.0); Blood Urea Nitrogen 11 mg/dL (9-16); Calcium 9.3 mg/dL (8.4-10.2); Carbon Dioxide 27 mmol/L (22-29); Chloride 105 mmol/L (96-108); Cholesterol 328 mg/dL (<200); Estimated Glomerular Filt Rate > 60; Free T4 (Free Thyroxine) 1.28 ng/dL (0.71-1.85); Glucose Fasting 111 mg/dL (60-99); HDL Cholesterol 57 mg/dL (>40); LDL Cholesterol Calculated 244 mg/dL (<100); Potassium 4.1 mmol/L (3.3-5.1); Sodium 139 mmol/L (135-145); Total Protein 7.5 g/dL (6.5-8.0); Triglycerides 136 mg/dL (<150)
[2024-09-05 12:05] LABS: Vitamin D 25-OH Total 38.5 ng/mL (>30)
== END 2024-09-05 09:44 | disposition home or self-care (01) ==
LOC: HO.LAB 09:43
PROVIDERS: PCP Internal Medicine; Visit Provider Internal Medicine Endocrinology, Diabetes & Metabolism
DX: E05.00 Thyrotoxicosis with diffuse goiter without thyrotoxic crisis or storm (principal); E89.0 Postprocedural hypothyroidism; E55.9 Vitamin D deficiency, unspecified; R10.2 Pelvic and perineal pain; E78.5 Hyperlipidemia, unspecified
CPT/HCPCS: 36415; 80053; 80061; 82306; 84439; 84443; 99212

== ENCOUNTER 2024-09-05 10:04 | Outpatient (AMB) | payer MEDICARE, MEDICAID, SELFPAY ==
--- NOTE | 2024-09-05 10:29 | A.OFFVIS_ITS ---
Vital Signs 09/05/24 10:32 Height 4 ft 11 in Weight 149 lb 11.102 oz BMI 30.2 BP 138/74 Blood Pressure Location Rt brachial Position Sitting Pulse 61 Pulse Source Pulse Oximeter Intake Visit Reasons: F/U Hx of Grave's Disease Intake Note: Patient presents today for Hx of Grave's Disease. 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: No Accompanied by: Self / Same As Patient Allergies Penicillins [PENICILLINS] Allergy (Intermediate, Verified 09/05/24 10:32) RASH statin Adverse Reaction (Intermediate, Uncoded 09/05/24 10:32) elevated liver enzymes Medication List - Last Reconciled 09/05/24 by Moncho Love MD albuterol sulfate 90 mcg/actuation 1 inh inhalation QID PRN 30 days buspirone 5 mg PO TID PRN cholecalciferol (vitamin D3) 25 mcg PO DAILY 90 days cholestyramine (with sugar) 4 gram 4 grams PO DAILY 60 days cromolyn 4% 1 drp ophthalmic (eye) QID 7 days cyclobenzaprine 5 mg PO BEDTIME PRN 30 days diclofenac sodium 1% (Aleve (diclofenac)) 2 grams topical QID 30 days duloxetine 20 mg PO DAILY ezetimibe (Zetia) 10 mg PO DAILY 90 days fluorometholone 0.1% 1 drp ophthalmic (eye) TID gabapentin 300 mg PO TID 30 days ibuprofen 800 mg PO TID PRN 30 days levothyroxine 112 mcg PO DAILY lidocaine 5% (Lidoderm) 1 patch topical DAILY lidocaine 5% 1 patch topical DAILY 15 days magnesium 250 mg PO DAILY meclizine 25 mg PO BID PRN 5 days mecobalamin (vitamin B12) 1,000 mcg PO DAILY 60 days naproxen 500 mg PO Q12H PRN pantoprazole 40 mg PO DAILY propranolol 10 mg PO BID 30 days rizatriptan 10 mg PO Q2-4H PRN 30 days rosuvastatin 20 mg PO DAILY 90 days sennosides (Natural Senna Laxative) 17.2 mg (2 x 8.6 mg) PO BEDTIME Shower Chair As directed topiramate 25 mg PO DAILY 30 days trazodone 25 mg PO BEDTIME Ventolin HFA 90 mcg/actuation (albuterol sulfate) 2 puffs inhalation Q6H PRN 30 days NS HPI Comments Details: 59 YO Female with PMHx postablative hypothyroidism who is seen in F/U. ?She reports being diagnosed initially with hyperthyroidism in her 20's after the of her son. She was treated with I131 ablation, and shortly after became hypothyroid. She has remained on Levothyroxine daily. ?Labs were checked 03/18/2020 which revealed TSH low at 0.08. TPO, TG, TSI and TRAB antibodies were all positive. ?She did have a thyroid US 03/17/2021 which was WNL. ?She reports feeling well today. Has been dealing with some depression and anxiety since her Mother was placed in a group home. She is seeing Dr. Nieves for this. She does report redness and pain in her eyes, with occasional blurred vision. She is following with Dr. Reynoso for thyroid eye disease. States she has not seen Dr. Reynoso recently ?Takes Biotin daily, but did stop this for 4 days prior to having labs done. Not currently taking biotin Labs: Laboratory Tests 07/24/21 07/24/21 12:13 12:13 25-OH Vitamin D Total 32 TSH 1.60 Currently on levothyroxine 125 mcg. Ran out of 112 ug Was seen in the emergency room for atypical chest pain and TSH was slightly suppressed. Repeat TSH level is pending . Complains of lack of appetite and nausea and vomiting. Her brother is sick and hospitalized at [facility] Medical History Uterine fibroid Fibroids Physical exam Polyarthralgia Leukopenia Ear discomfort JAXSON (generalized anxiety disorder) Moderate recurrent major depression Neck pain New daily persistent headache Postablative hypothyroidism Graves disease Severe major depression without psychotic features Left leg pain Pernicious anemia Lumbar degenerative disc disease Lumbar pain Nausea and vomiting GERD (gastroesophageal reflux disease) Hypovitaminosis D B12 deficiency Dyslipidemia Autoimmune thyroiditis Surgical History History of laparoscopic cholecystectomy Family History Father Medical history unknown Mother Chronic mental illness Diabetes Hypertension Maternal Grandfather Stroke Maternal Aunt Uterine cancer Family/Other FH: mental illness Maternal Grandmother Diabetes Social History Household Members: None Housing: Apartment Are you a primary medicare interviewer to a significant other at home: Yes (mom, brothers) Do you presently have visiting nurse or other home services: No Alcohol intake: current Alcohol intake frequency: does not drink Alcohol type: wine and other Patient Tobacco Use Status: Former Tobacco user Tobacco use type: Cigarette e-Cigarette/Vaping Use: Never Used Second Hand Smoke Exposure: No service: No Current occupational status: disabled Sexual orientation: Straight/Heterosexual Gender identity: Female Cognitive needs: No Hearing needs: No Vision needs: No Physical Exam Vital Signs: BMI result Body Mass Index 30.2 Const Other: Thyroid gland is decrease in size weighs about 5 g . There are no thyroid nodules palpated. There is no proptosis or exophthalmos on examination Assessment & Plan Assessment & Plan (1) Graves disease: Code(s): E05.00 - Thyrotoxicosis with diffuse goiter without thyrotoxic crisis or storm Category: Medical Plan: 59-year-old female with a history of post-ablated hypothyroidism. She is currently replaced on 112 mcg levothyroxine. She appears to be clinically and biochemically euthyroid but her TSH is low normal Plan is to have the patient resume the 112 mcg levothyroxine and recheck TSH and free T4 in 6 weeks time and then adjust levothyroxine. Patient was told to follow up with the primary care provider regarding her symptoms of nausea, vomiting and weight loss. Orders: Orders Free T4 (Free Thyroxine) 6 Weeks E05.00 - Thyrotoxicosis with diffuse goiter without thyrotoxic crisis or storm Thyroid Stimulating Hormone 6 Weeks E05.00 - Thyrotoxicosis with diffuse goiter without thyrotoxic crisis or storm Medications: Refilled levothyroxine 112 mcg PO DAILY 30 tabs 5RF Coding Level of Care Code Est Pt Level 3 (27013) Diagnoses Graves disease E05.00
[2024-09-05 10:32] VITALS: BP 138/74; PULSE 61; BMI 30.2
== END 2024-09-05 10:51 | disposition home or self-care (01) ==
PROVIDERS: PCP Internal Medicine; Visit Provider Internal Medicine Endocrinology, Diabetes & Metabolism
DX: E05.00 Thyrotoxicosis with diffuse goiter without thyrotoxic crisis or storm (principal)
CPT/HCPCS: 99213

== ENCOUNTER 2024-10-12 08:55 | Outpatient (REF) | payer MEDICARE, MEDICAID, SELFPAY ==
--- NOTE | ~2024-10-12 | XR_ITS ---
EXAMINATION: XR ABDOMEN 1 VIEW (KUB) HISTORY: K59.00 - Constipation, unspecified COMPARISON: Comparison is made with the prior examination dated 11/04/2017. FINDINGS: Three supine views of the abdomen are submitted. The bowel gas pattern is unremarkable, without evidence of mechanical obstruction. There is a small to moderate amount of stool throughout the colon. There are surgical clips in the right upper quadrant. There are phleboliths in the left hemipelvis. There are no abnormal soft tissue masses. The bones are intact. XR/XR KUB IMPRESSION: Small to moderate amount of stool throughout the colon. Electronically signed by: Moncho Polanco MD 10/16/2024 09:56 AM EDT
[2024-10-12 11:45] LABS: Appearance Urine Clear; Color Urine Yellow; Glucose Urine UA Negative (Negative); Leukocyte Esterase Urine Negative (Negative); Nitrite Urine Negative (Negative); Specific Gravity - Urine >= 1.030 (1.005-1.025); Urine Blood Negative (Negative); Urine Ketones 15 mg/dL (Negative); Urine Protein Negative (Neg-Trace)
[2024-10-12 12:09] LABS: Free T4 (Free Thyroxine) 1.19 ng/dL (0.71-1.85); Thyroid Stimulating Hormone 0.29 uIU/mL (0.32-4.0)
== END 2024-10-12 08:56 | disposition home or self-care (01) ==
LOC: HO.XRAY 08:55
PROVIDERS: Internal Medicine Endocrinology, Diabetes & Metabolism; PCP Internal Medicine; Visit Provider Physician Assistant Medical
DX: K59.00 Constipation, unspecified (principal); E05.00 Thyrotoxicosis with diffuse goiter without thyrotoxic crisis or storm; R30.0 Dysuria; B35.9 Dermatophytosis, unspecified; Z76.0 Encounter for issue of repeat prescription
CPT/HCPCS: 36415; 74018; 81003; 84439; 84443; 96127; 99212

== ENCOUNTER 2024-10-12 08:55 | Outpatient (AMB) | payer MEDICARE, MEDICAID, SELFPAY ==
[2024-10-12 09:15] VITALS: BP 120/82; PULSE 58; TEMP 36.2; O2SAT 98; BMI 29.3
--- NOTE | 2024-10-12 09:15 | A.OFFPC_ITS ---
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 Required: No Accompanied by: Self / Same As Patient Allergies Penicillins [PENICILLINS] Allergy (Intermediate, Verified 10/12/24 09:37) RASH statin Adverse Reaction (Intermediate, Uncoded 10/12/24 09:37) elevated liver enzymes Medication List - Last Reconciled 10/12/24 by Kaley Mckenzie PA-C albuterol sulfate 90 mcg/actuation 1 inh inhalation QID PRN 30 days buspirone 5 mg PO TID PRN cholecalciferol (vitamin D3) 25 mcg PO DAILY 90 days cholestyramine (with sugar) 4 gram 4 grams PO DAILY 60 days cromolyn 4% 1 drp ophthalmic (eye) QID 7 days cyclobenzaprine 5 mg PO BEDTIME PRN 30 days diclofenac sodium 1% (Aleve (diclofenac)) 2 grams topical QID 30 days duloxetine 20 mg PO DAILY ezetimibe (Zetia) 10 mg PO DAILY 90 days fluorometholone 0.1% 1 drp ophthalmic (eye) TID gabapentin 300 mg PO TID 30 days ibuprofen 800 mg PO TID PRN 30 days levothyroxine 112 mcg PO DAILY lidocaine 5% (Lidoderm) 1 patch topical DAILY lidocaine 5% 1 patch topical DAILY 15 days magnesium 250 mg PO DAILY meclizine 25 mg PO BID PRN 5 days mecobalamin (vitamin B12) 1,000 mcg PO DAILY 60 days naproxen 500 mg PO Q12H PRN pantoprazole 40 mg PO DAILY propranolol 10 mg PO BID 30 days rizatriptan 10 mg PO Q2-4H PRN 30 days rosuvastatin 20 mg PO DAILY 90 days sennosides (Natural Senna Laxative) 17.2 mg (2 x 8.6 mg) PO BEDTIME Shower Chair As directed topiramate 25 mg PO DAILY 30 days trazodone 25 mg PO BEDTIME Ventolin HFA 90 mcg/actuation (albuterol sulfate) 2 puffs inhalation Q6H PRN 30 days NS Tobacco use date assessed: 10/12/24 Dental Screening Dental Screen Date: 10/12/24 Did you have a dental visit in the last 12 months?: No Did you have a dental problem in the last 6 months where you did not have access to dental care?: No Was dental information given to patient?: Patient has dentist [facility] Medical History (Updated 10/12/24 @ 09:56 by Kaley Mckenzie PA-C) Medication refill Tinea Constipation Uterine fibroid Fibroids Physical exam Polyarthralgia Leukopenia Ear discomfort JAXSON (generalized anxiety disorder) Moderate recurrent major depression Neck pain New daily persistent headache Postablative hypothyroidism Graves disease Severe major depression without psychotic features Left leg pain Pernicious anemia Lumbar degenerative disc disease Lumbar pain Nausea and vomiting GERD (gastroesophageal reflux disease) Hypovitaminosis D B12 deficiency Dyslipidemia Autoimmune thyroiditis Surgical History History of laparoscopic cholecystectomy Family History Father Medical history unknown Mother Chronic mental illness Diabetes Hypertension Maternal Grandfather Stroke Maternal Aunt Uterine cancer Family/Other FH: mental illness Maternal Grandmother Diabetes Social History Household Members: None Housing: Apartment Are you a primary specialist wound care to a significant other at home: Yes (mom, brothers) Do you presently have visiting nurse or other home services: No Alcohol intake: current Alcohol intake frequency: does not drink Alcohol type: wine and other Patient Tobacco Use Status: Former Tobacco user Tobacco use type: Cigarette e-Cigarette/Vaping Use: Never Used Second Hand Smoke Exposure: No service: No Current occupational status: disabled Sexual orientation: Straight/Heterosexual Gender identity: Female Cognitive needs: No Hearing needs: No Vision needs: No Questionnaire PHQ-9 Over the last 2 weeks, how often have you been bothered by any of the following problems? 1. Little interest or pleasure in doing things: not at all 2. Feeling down, depressed, or hopeless: nearly every day 3. Trouble falling or staying asleep, or sleeping too much: nearly every day 4. Feeling tired or having little energy: nearly every day 5. Poor appetite or overeating: nearly every day 6. Feeling bad about yourself - or that you are a failure or have let yourself or your family down: several days 7. Trouble concentrating on things, such as reading the newspaper or watching television: nearly every day 8. Moving or speaking so slowly that other people could have noticed. Or the opposite - being so fidgety or restless that you have been moving around a lot more than usual: more than half the days 9. Thoughts that you would be better off or of hurting yourself in some way: not at all Total score: 18 Depression Screening Interpretation: Positive Depression Screening Follow-up: Existing condition, In treatment and Follow-up Visit Requested Depression Screening Done: Yes 14773 - PHQ-9 Billing: Yes Source: Developed by Drs. Moncho Barriga, Kianna Salcedo, Abbe Donato and colleagues, with an educational lorenzo from [employer]. Thrive Questionnaire Date Thrive assessed: 10/12/24 I am a: Patient What is your living situation today?: I have a steady place to live Within the past 12 months, did the food you bought not last and you didn't have the money to get more?: Never true Within the past 12 months, did you worry whether your food would run out before you got money to buy more?: Never true Do you have trouble paying for medicines?: No Do you have trouble getting transportation to medical appointments?: No Do you have trouble paying your heating and electricity bill?: No Do you have trouble taking care of your child, family member or friend?: No Do you have trouble with day-to-day activities such as bathing, preparing meals, shopping, managing finances, etc.?: No Are you currently unemployed and looking for a job?: No Are you interested in more education?: No Please select the resources that you would like help with: None Currently or been in a relationship where the following occur: No concerns reported THRIVE Score: 0 AUDIT C Alcohol Use Questionnaire (AUDIT-C) 1. How often do you have a drink containing alcohol?: Never Total Score: 0 Score Reviewed/Action Taken: No JAXSON-7 AMB Questionnaire JAXSON-7 Date JAXSON - 7 assessed: 10/12/24 Feeling nervous, anxious, or on edge: 3 = Nearly every day Not being able to stop or control worryin = Nearly every day Worrying too much about different things: 3 = Nearly every day Trouble relaxin = Nearly every day Being so restless that it is hard to sit still: 3 = Nearly every day Becoming easily annoyed or irritable: 3 = Nearly every day Feeling afraid as if something awful might happen: 3 = Nearly every day Total JAXSON-7 score (0-4 normal; 5-9 mild; 10-14 moderate; 15-21 severe): 21 Source: Developed by Drs. Moncho Barriga, Kianna Salcedo, Abbe Donato and colleagues, with an educational lorenzo from [employer]. JAXSON-7 Assessment Billing JAXSON-7 Assessment Tool: JAXSON-7 Assessment 86283 Physical exam (Primary Care) Vital Signs: Last Vital Signs Temp 97.1 F 10/12/24 09:15 Pulse 58 10/12/24 09:15 BP 120/82 10/12/24 09:15 Pulse Ox 98 10/12/24 09:15 Oxygen Delivery Method Room Air 10/12/24 09:15 BMI result Body Mass Index 29.3 Tobacco/Smoking Status: Tobacco use Status Tobacco use date assessed 10/12/24 10/12/24 09:28 Patient Tobacco Use Status Former Tobacco user 10/12/24 09:28 Tobacco use type Cigarette 10/12/24 09:28 e-Cigarette/Vaping Use Never Used 10/12/24 09:28 PHQ-9: PHQ-9 Score PHQ-9: Total score 18 10/12/24 09:28 Depression Screening Interpretation: Positive Depression Screening Follow-up: Existing condition, In treatment and Follow-up Visit Requested Thrive Assessment: Date of Thrive Assessment Date Thrive assessed 10/12/24 10/12/24 09:28 Currently or been in a relationship where the following occur: No concerns reported Coding Level of Care Code Est Pt Level 4 (73914) Complex EM visit Add On G2211 Diagnoses Constipation K59.00 Dysuria R30.0 Tinea B35.9 Medication refill Z76.0 Additional Codes JAXSON-7 Assessment Billing - JAXSON-7 Assessment Tool: JAXSON-7 Assessment 64655 ([id number]) PHQ-9 - 32443 - PHQ-9 Billing: Yes ([id number]) Assessment & Plan Assessment & Plan (1) Constipation: Code(s): K59.00 - Constipation, unspecified Category: Medical Plan: Abdomen is soft and nontender. H & P not consistent with obstruction. Will prescribe patient Colace, MiraLax, enema. She will have a KUB and UA obtained. If symptoms persist or worsen she is instructed to call us for further evaluation and management. Condition is stable continue to monitor (2) Dysuria: Code(s): R30.0 - Dysuria Category: Medical Plan: UA ordered. Will wait for results as patient's main complaint is vaginal pressure pressure and constipation. Condition is stable will monitor (3) Tinea: Comment: under bilateral breast Code(s): B35.9 - Dermatophytosis, unspecified Category: Medical Plan: Tinea corporis to bilateral folds of breath. No signs of cellulitis infection. No drainage or wounds or lesions are noted. Nystatin powder was prescribed. Will continue to monitor. (4) Medication refill: Code(s): Z76.0 - Encounter for issue of repeat prescription Category: Medical Plan: Patient requested refills for her cyclobenzaprine, meclizine, her vitamin B12 and her vitamin-D. Refill sent to the patient's pharmacy. Plan Plan Constipation will be managed with Colace and MiraLAX taken twice daily and an enema if immediate relief is necessary. A topical antifungal powder applied under the breast aims to treat the rash due to potential fungal etiology. Refills for cyclobenzaprine and meclizine are prepared to address her migraines and dizziness. An abdominal x-ray is necessary to confirm any obstruction or signs of significant constipation. Follow-up through the patient portal is recommended for any questions or updates on her condition. Orders: Orders XR KUB Today K59.00 - Constipation, unspecified UA CC w/rflx Micro + Cult Today K59.00 - Constipation, unspecified, R30.0 - Dysuria Medications: New docusate sodium 283 mg (5 mL) [place] DAILY 150 mL 3RF nystatin 1 appl topical QID 60 grams 3RF docusate sodium (Colace) 100 mg PO BID 90 caps 1RF constipation polyethylene glycol 3350 (Miralax) 17 grams PO BID 510 grams 3RF Refilled meclizine 25 mg PO BID 5 days PRN 90 tabs 1RF dizziness mecobalamin (vitamin B12) allow to dissolve in mouth OR may chew lightly before swallowing 1,000 mcg PO DAILY 60 days 60 ea 4RF cyclobenzaprine 5 mg PO BEDTIME 30 days PRN 90 tabs 1RF muscle spasm cholecalciferol (vitamin D3) 25 mcg PO DAILY 90 days 90 caps 1RF Patient Instructions: Patient Instructions - Take Colace twice daily to soften stool. - Use MiraLAX twice daily with drinks to help bowel movements. - Apply the prescribed powder under your breast for the rash and use four times a day. - Complete the abdominal x-ray as instructed, and follow up for results. - lamp shades supervisor refills for muscle relaxants and dizziness medication from your pharmacy. - Sign up for and utilize the patient portal for communication with your healthcare provider. - Maintain hydration and seek support for emotional stress as needed. - Follow up with your healthcare provider if symptoms persist or worsen. Scribe Plan - Not visible on output: History of Present Illness The patient is a 59-year-old female presenting with abdominal cramping and constipation. She describes a recurrence of abdominal pain since last week, initially emerging two days back, spreading to her back and coinciding with a feeling of incomplete bowel movement. She characterizes the pain as inflammatory with discomfort predominantly in the abdomen and lower rectum. Though she typically does not experience constipation, she reports recent difficulty in bowel evacuation, including small, hard stool with straining and associated rectal bleeding from pushing excessively. Patient requesting refill for medication for meclizine, cyclobenzaprine, vitamin B12 and vitamin-D. She admits to recent stress-induced weight loss relating to a family bereavement. She also highlights a new rash under the breast, assumed to be due to sweating and potentially worsened by baby oil. Social History - Family stress due to recent bereavement affecting appetite and weight - No tobacco use - No alcohol consumption - No drug use - Engages minimally in physical activities as affected by stress Review of Systems - Gastrointestinal: Reports difficulty in bowel movements, straining, hard stools, and occasional rectal bleeding - Integumentary: Reports rash under the breast - Neurological: Reports migraines and dizziness - Denies vomiting, diarrhea, weight loss or gain (unintentional), nausea, urinary problems Physical Exam Appearance: Alert. Oriented X3. No acute distress. Head: Normal external exam. Normocephalic. Atraumatic. Eyes: Pupils are equal, round, and reactive to light. Extraocular movements intact. Conjunctiva and sclera normal. Eyelids normal. Throat: Pharynx normal. Uvula midline. Moist mucous membranes. Neck: Normal inspection. Neck supple. Full range of motion. No meningeal signs. Cardiovascular: Normal heart rate and rhythm. Respiratory: No respiratory distress. Painless inspiration. Abdomen: Soft and nontender. Bowel sounds normal in all 4 quadrants. No distention noted. No organomegaly noted. No visible injury noted. Back: No costovertebral angle tenderness. Full range of motion noted. Skin: Skin warm and dry. Normal skin color. Normal skin turgor. Rash noted under the breasts, likely fungal. No signs of acute cellulitic infection. Extremities: Extremities exhibit normal range of motion. Extremities nontender. Neuro: Oriented X 3. No motor deficit. No sensory deficit. Reflexes normal. Plan Constipation will be managed with Colace and MiraLAX taken twice daily and an enema if immediate relief is necessary. A topical antifungal powder applied under the breast aims to treat the rash due to potential fungal etiology. Refills for cyclobenzaprine and meclizine are prepared to address her migraines and dizziness. An abdominal x-ray is necessary to confirm any obstruction or signs of significant constipation. Follow-up through the patient portal is recommended for any questions or updates on her condition. Patient was informed and verbally consented to the use of an ambient scribe for clinic note documentation during this visit. Discussion Notes I discussed the likelihood that the patient?s symptoms are due to constipation and the importance of using Colace and MiraLAX to alleviate her symptoms. We talked about trying an enema if other strategies don?t result in significant improvement. An abdominal x-ray was ordered to confirm constipation and establish severity, which can influence further management. The under-breast rash treatment includes a topical antifungal powder; we discussed the suspected inflammatory and fungal nature of her condition. The discussion also covered refilling her medication for dizziness and next steps if symptoms persist, including contacting us through the patient portal. Patient Instructions - Take Colace twice daily to soften stool. - Use MiraLAX twice daily with drinks to help bowel movements. - Apply the prescribed powder under your breast for the rash and use four times a day. - Complete the abdominal x-ray as instructed, and follow up for results. - lamp shades supervisor refills for muscle relaxants and dizziness medication from your pharmacy. - Sign up for and utilize the patient portal for communication with your healthcare provider. - Maintain hydration and seek support for emotional stress as needed. - Follow up with your healthcare provider if symptoms persist or worsen.
--- OUTSIDE RECORDS SUMMARY | 2024-10-12 09:44 | XMS_ITS | Clinical Summary ---
Author Organization [facility] Address [address] [place] [address] Care Team Providers Care Clinical Neuropsychologist Name Role Phone Unavailable Primary Care Provider Unavailabl e Allergies Active Allergy Reactions Criticality Noted Date Comments Penicillin G 03/19/2016 Medications ibuprofen 600 MG tabletIndicatio ns:Dental abscess Take 1 tablet (600 mg) by mouth every 6 (six) hours if needed for mild pain for up to 20 doses. 20 tablet 3 Active chlorhexidine (Peridex) 0.12 % solutionIndicat ions:Dental abscess Swish 15 mL by mouth for 1 minute morning and night. Spit, do not swallow. Do not eat or drink for 30 minutes following use. Do not use for more than 14 days. 473 mL 3 Active Immunizations Name Administration Dates Next Due INFLUENZA VACCINE QUADRIVALE NT RECOMBINANT PRESERVATIVE FREE RIV4 09/05/2019 Influenza injectable quadriv alent IIV4 with preservative 07/08/2018,04/14/2017 Influenza, IIV3, injectable 06/12/2014,1 08/24/2012,06/03/2012,2010 Influenza, intradermal, quad rivalent, preservative free 06/12/2014,06/24/2013,06/03/2012,2010,02/27/2005 Influenza, seasonal, injecta ble, preservative free 05/12/2016 TD (adult), 2 Lf tetanus tox oid, preservative free, adsorbed 02/27/2005 Zoster, Recombinant 05/03/2023 Social History Tobacco Use Types Packs/Day Years Used Date Smoking Tobacco: Never Smokeless Tobacco: Never Tobacco Cessation:Counseling Given: Not Answered Alcohol Use Standard Drinks/Week Comments Never 0 (1 standard drink = 0.6 oz pur e alcohol) Comments Unknown Sex and Gender Information Value Date Recorded Sex Assigned at Female 06/08/2022 10:22 AM EDT Legal Sex Female 10:22 AM EDT Gender Identity Female 05/20/2023 3:05 PM EDT Sexual Orientation Choose not to disclose 2021 10:22 AM EDT Last Filed Vital Signs Vital Sign Reading Time Taken Comments Blood Pressure 154/80 05/20/2023 2:58 PM EDT Pulse - - Temperature - - Respiratory Rate - - Oxygen Saturation - - Inhaled Oxygen Concentration - - Weight - - Height - - Body Mass Index - - Plan of Treatment Health Maintenance Due Date Last Done Comments CT Colonography 1963 Colonoscopy 1963 Colorectal Cancer Screening 1963 Depression Screening 1963 FIT DNA/Cologuard 1963 FIT 1963 FOBT 1963 HIV Screening 1963 SDOH Screening 1963 Sigmoidoscopy 1963 Alcohol/Substance Use Screening 1975 Hepatitis C Screening 1981 Pap Smear 02/08/1984 Cervical Cancer Screening 1993 HPV/Cotest 1993 Mammogram 2003 DTaP/Tdap/Td Vaccines (1 - Tdap) 02/28/2005 02/27/2005 Pneumococcal Vaccine: 50+ Years (1 of 1 - PCV) 2013 Dental Prophylaxis 08/05/2016 02/03/2016 Dental Oral Exam 08/14/2017 02/10/2017, 12/25/2014 Dental X-Ray: Full Mouth 12/26/2017 12/25/2014 Zoster Vaccines (2 of 2) 06/28/2023 05/03/2023 COVID-19 Vaccine ( - season) 2024 07/29/2021, 11/06/2020, 10/09/2020 Influenza Vaccine (#1) 2024 0, 07/08/2018, 04/14/2017, Additional history exists Tobacco Screening 05/20/2024 05/20/2023 Dental X-Ray: Bitewings 05/21/2024 05/20/20 23, 02/10/2017, 02/03/2016, Additional history exists RSV Patients and Patients Aged 60 years or older (1 - 1-dose 75+ series) 2038 HIB Vaccines Aged Out No longer eligi ble based on patient's age to complete this topic HPV Vaccines Aged Out No longer eligi ble based on patient's age to complete this topic Hepatitis A Vaccines Aged Out No long er eligible based on patient's age to complete this topic Hepatitis B Vaccines Aged Out No long er eligible based on patient's age to complete this topic IPV Vaccines Aged Out No longer eligi ble based on patient's age to complete this topic Meningococcal Vaccine Aged Out No nicole jose eligible based on patient's age to complete this topic RSV under 20 months Aged Out No longe r eligible based on patient's age to complete this topic Rotavirus Vaccines Aged Out No longer eligible based on patient's age to complete this topic Procedures Procedure Name Priority Date/Time Associated Diagnosis Comments BITEWING - SINGLE RADIOGRAPHIC IMAGE Routine 05/20/2023 3:30 PM EDT Dental abscess PERIODIC ORAL EVALUATION - ESTABLISHED PATIENT Routine 02/10/2017 12:00 AM EDT PROPHYLAXIS - ADULT Routine 02/03/2016 1 2:00 AM EDT INTRAORAL - COMPLETE SERIES OF RADIOGRAPHIC IMAGES Routine 12/25/2014 12:00 AM EDT from Last 3 Months or Most Recently Relevant to Health Maintenance Insurance [facility] MEDICAID STAND ADULT
== END 2024-10-12 09:58 | disposition home or self-care (01) ==
PROVIDERS: PCP Internal Medicine; Visit Provider Physician Assistant Medical
DX: K59.00 Constipation, unspecified (principal); R30.0 Dysuria; B35.9 Dermatophytosis, unspecified; Z76.0 Encounter for issue of repeat prescription

== ENCOUNTER → 2024-10-12 10:24 | Outpatient (BNV) | payer MEDICARE, MEDICAID, SELFPAY | PROVIDERS: PCP Internal Medicine; Visit Provider Radiology Diagnostic Radiology | DX: K56.41 Fecal impaction (principal) | CPT/HCPCS: 74018 ==

== ENCOUNTER 2024-10-25 09:10 | Outpatient (REF) | payer MEDICARE, MEDICAID, SELFPAY ==
[2024-10-25 10:28] LABS: Influenza A PCR NEGATIVE (Negative); Influenza B PCR NEGATIVE (Negative); Resp Syncy Virus RNA Qual PCR NEGATIVE (Negative); SARS COV2 PCR INHOUSE NEGATIVE (Negative)
[2024-10-25 11:22] LABS: Thyroid Stimulating Hormone 2.18 uIU/mL (0.32-4.0)
== END 2024-10-25 09:11 | disposition home or self-care (01) ==
LOC: HO.LAB 09:10
PROVIDERS: Absent Provider Nurse Practitioner Adult Health; PCP Internal Medicine; Visit Provider Internal Medicine
DX: R09.89 Other specified symptoms and signs involving the circulatory and respiratory systems (principal); E06.3 Autoimmune thyroiditis
CPT/HCPCS: 0241U; 84443

== ENCOUNTER 2024-11-30 09:41 | Outpatient (REF) | payer MEDICARE, MEDICAID, SELFPAY ==
--- OUTSIDE RECORDS SUMMARY | 2024-11-30 10:46 | XMS_ITS | Clinical Summary ---
Author Organization [employer] [facility] Address [address] [place] [address] Care Team Providers Care Manager Hiv Name Role Phone Unavailable Primary Care Provider [...] Most Recently Relevant to Health Maintenance Insurance [facility] MEDICA[facility] STAND ADULT
[2024-11-30 11:38] LABS: Free T4 (Free Thyroxine) 1.09 ng/dL (0.71-1.85); Thyroid Stimulating Hormone 0.91 uIU/mL (0.32-4.0)
== END 2024-11-30 09:42 | disposition home or self-care (01) ==
LOC: HO.LAB 09:41
PROVIDERS: PCP Internal Medicine; Visit Provider Nurse Practitioner Adult Health
DX: E89.0 Postprocedural hypothyroidism (principal)
CPT/HCPCS: 36415; 84439; 84443

== ENCOUNTER 2024-12-07 10:19 | Outpatient (AMB) | payer MEDICARE, MEDICAID, SELFPAY ==
--- NOTE | 2024-12-07 10:20 | A.OFFVIS_ITS ---
Vital Signs 12/07/24 10:21 Height 4 ft 11 in Weight 144 lb 6.444 oz BMI 29.2 BP 138/70 Blood Pressure Location Lt brachial Position Sitting Pulse 61 Pulse Source Pulse Oximeter Pulse Oximetry (%) 98 Oxygen Delivery Method Room Air Intake Visit Reasons: F/U Hx of Grave's Disease Intake Note: Patient present today for history of Grave's disease follow up visit. 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 ?She reports being diagnosed initially with hyperthyroidism in her 20's after the of her son. She was treated with I131 ablation, and shortly after became hypothyroid. She has remained on Levothyroxine daily. ?Labs were checked 03/18/2020 which revealed TSH low at 0.08. TPO, TG, TSI and TRAB antibodies were all positive. ?She did have a thyroid US 03/17/2021 which was WNL. ?She reports feeling well today. Has been dealing with some depression and anxiety since her Mother was placed in a assisted. She is seeing Dr. Nieves for this. She does report redness and pain in her eyes, with occasional blurred vision. She is following with Dr. Reynoso for thyroid eye disease. States she has not seen Dr. Reynoso recently ?Takes Biotin daily, but did stop this for 4 days prior to having labs done. Not currently taking biotin Labs: Laboratory Tests 07/24/21 07/24/21 12:13 12:13 25-OH Vitamin D Total 32 TSH 1.60 Currently on levothyroxine 100 mcg. The patient is a 59-year-old female presenting with thyroid eye disease as a result of Graves' disease and hypothyroidism. Her hypothyroidism is well-managed with levothyroxine 100 mcg, and her thyroid levels have been stable based on tests conducted earlier this year. She struggles with recurring symptoms in her eyes, associated with her Graves' disease, which include redness and episodes of bulging, especially noticeable in the morning. These ocular issues have been persistent, and she has faced challenges accessing specialized care due to insurance coverage limitations. She remembers undergoing radioactive iodine treatment in the past that successfully addressed her thyroid function. However, thyroid eye disease symptoms persisted. The patient indicated she had not followed through with a referral to Dr. Dior due to insurance denial but is now keen on pursuing treatment options, possibly including Tepezza for managing the thyroid eye disease. She additionally expresses concern regarding the need for corrective eyewear. [facility] Medical History (Updated 10/12/24 @ 09:56 by Kaley Mckenzie PA-C) Medication refill Tinea Constipation Uterine fibroid Fibroids Physical exam Polyarthralgia Leukopenia Ear discomfort JAXSON (generalized anxiety disorder) Moderate recurrent major depression Neck pain New daily persistent headache Postablative hypothyroidism Graves disease Severe major depression without psychotic features Left leg pain Pernicious anemia Lumbar degenerative disc disease Lumbar pain Nausea and vomiting GERD (gastroesophageal reflux disease) Hypovitaminosis D B12 deficiency Dyslipidemia Autoimmune thyroiditis Surgical History History of laparoscopic cholecystectomy Family History Father Medical history unknown Mother Chronic mental illness Diabetes Hypertension Maternal Grandfather Stroke Maternal Aunt Uterine cancer Family/Other FH: mental illness Maternal Grandmother Diabetes Social History Household Members: None Housing: Apartment 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, 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) Do you presently have visiting nurse or other home services: No Alcohol intake: current Alcohol intake frequency: does not drink Alcohol type: wine and other Patient Tobacco Use Status: Former Tobacco user Tobacco use type: Cigarette e-Cigarette/Vaping Use: Never Used Second Hand Smoke Exposure: No service: No Current occupational status: disabled Sexual orientation: Straight/Heterosexual Gender identity: Female Cognitive needs: No Hearing needs: No Vision needs: No Physical Exam Vital Signs: Last Vital Signs Pulse 61 12/07/24 10:21 BP 138/70 12/07/24 10:21 Pulse Ox 98 12/07/24 10:21 Oxygen Delivery Method Room Air 12/07/24 10:21 BMI result Body Mass Index 29.2 Const Other: Thyroid gland is decrease in size weighs about 5 g . There are no thyroid nodules palpated. There is ? mild proptosis but no exophthalmos on examination Assessment & Plan Assessment & Plan (1) Graves disease: Code(s): E05.00 - Thyrotoxicosis with diffuse goiter without thyrotoxic crisis or storm Category: Medical Plan: 59-year-old female with a history of post-ablated hypothyroidism. She is currently replaced on 100 mcg levothyroxine. She appears to be clinically and biochemically euthyroid Plan is to continue the current management. At this point, patient returned to the care of her primary care provider and returned back to endocrinology as needed 1. Hypothyroidism Management with levothyroxine 100 mcg continues to maintain stable thyroid levels, confirmed by previous lab tests. 2. 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 Dior or another provider, with possible consideration for Tepezza treatment. During the visit, we thoroughly reviewed the patient's current status of hyp othyroidism and thyroid eye disease. I confirmed that her thyroid levels are stable with levothyroxine management, with no necessity for dosage adjustment. We discussed the persistent eye symptoms associated with thyroid eye disease and the potential benefits and risks of available treatments, including Tepezza, though she will need specialist evaluation to assess suitability. The conversation included identifying the need for further specialist intervention given past challenges with insurance coverage. We focused on ensuring she understands the potential options for obtaining care either through Dr. Dior or another specialist. - Continue taking levothyroxine 100 mcg daily as prescribed. - Contact Dr. Dior's office or another specialist for evaluation and management of thyroid eye disease. - Consider discussing Tepezza treatment with a specialist. - Monitor any changes in eye symptoms and report significant developments. - Follow up with primary care for ongoing management of hypothyroidism. - The patient had an opportunity to ask questions regarding treatment plan. The patient expressed understanding and agreement with the above treatment plan. Patient was informed and verbally consented to the use of an ambient scribe for clinic note documentation during this visit. Coding Level of Care Code Est Pt Level 3 (84845) Diagnoses Graves disease E05.00
[2024-12-07 10:21] VITALS: BP 138/70; PULSE 61; O2SAT 98; BMI 29.2
--- OUTSIDE RECORDS SUMMARY | 2024-12-07 11:46 | XMS_ITS | Clinical Summary ---
Author Organization [employer] [facility] Address [address] [place] [address] Care Team Providers Care Supervisor [employer] Name Role Phone Unavailable Primary Care Provider [...] Most Recently Relevant to Health Maintenance Insurance [facility] MEDICAID STAND ADULT
== END 2024-12-07 13:39 | disposition home or self-care (01) ==
LOC: HO.ENCR 10:19
PROVIDERS: PCP Internal Medicine; Visit Provider Internal Medicine Endocrinology, Diabetes & Metabolism
DX: E05.00 Thyrotoxicosis with diffuse goiter without thyrotoxic crisis or storm (principal)
CPT/HCPCS: 99213

== ENCOUNTER → 2024-12-07 10:19 | Outpatient (BNVA) | payer MEDICARE, MEDICAID, SELFPAY | PROVIDERS: PCP Internal Medicine; Visit Provider Internal Medicine Endocrinology, Diabetes & Metabolism | DX: M25.50 Pain in unspecified joint (principal); R76.8 Other specified abnormal immunological findings in serum; R00.1 Bradycardia, unspecified; F41.9 Anxiety disorder, unspecified; F32.A Depression, unspecified; R73.9 Hyperglycemia, unspecified; B35.9 Dermatophytosis, unspecified; E05.00 Thyrotoxicosis with diffuse goiter without thyrotoxic crisis or storm | CPT/HCPCS: 96127; 99212 ==

== ENCOUNTER 2024-12-07 10:48 | Outpatient (AMB) | payer MEDICARE, MEDICAID, SELFPAY ==
--- NOTE | 2024-12-07 10:53 | A.OFFPC_ITS ---
Vital Signs 12/07/24 10:55 Height 4 ft 11 in Weight 144 lb 2 oz BMI 29.1 BP 110/68 Blood Pressure Location Lt brachial Position Sitting Pulse 63 Pulse Source Pulse Oximeter Temp 97.7 F Temp Source Temporal Artery Scan Pulse Oximetry (%) 97 Oxygen Delivery Method Room Air Intake Visit Reasons: 1mth f/u Intake Note: Patient is here to follow up on Med review. 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: Not Required per policy Accompanied by: Self / Same As Patient Allergies Penicillins [PENICILLINS] Allergy (Intermediate, Verified 12/07/24 11:12) RASH statin Adverse Reaction (Intermediate, Uncoded 12/07/24 11:12) elevated liver enzymes Medication List - Last Reconciled 12/07/24 by Kaley Mckenzie PA-C albuterol sulfate 90 mcg/actuation 1 inh inhalation QID PRN 30 days buspirone 5 mg PO TID PRN cholecalciferol (vitamin D3) 25 mcg PO DAILY 90 days cholestyramine (with sugar) 4 gram 4 grams PO DAILY 60 days cromolyn 4% 1 drp ophthalmic (eye) QID 7 days cyclobenzaprine 5 mg PO BEDTIME PRN 30 days diclofenac sodium 1% (Aleve (diclofenac)) 2 grams topical QID 30 days docusate sodium 283 mg (5 mL) VA DAILY docusate sodium (Colace) 100 mg PO BID duloxetine 20 mg PO DAILY escitalopram oxalate 5 mg PO DAILY ezetimibe (Zetia) 10 mg PO DAILY 90 days fluorometholone 0.1% 1 drp ophthalmic (eye) TID gabapentin 300 mg PO TID 30 days ibuprofen 800 mg PO TID PRN 30 days levothyroxine 100 mcg PO DAILY lidocaine 5% (Lidoderm) 1 patch topical DAILY lidocaine 5% 1 patch topical DAILY 15 days lorazepam 5 mg PO BEDTIME PRN magnesium 250 mg PO DAILY meclizine 25 mg PO BID PRN 5 days mecobalamin (vitamin B12) 1,000 mcg PO DAILY 60 days naproxen 500 mg PO Q12H PRN nystatin 1 appl topical QID pantoprazole 40 mg PO DAILY polyethylene glycol 3350 (Miralax) 17 grams PO BID propranolol 10 mg PO BID 30 days rizatriptan 10 mg PO Q2-4H PRN 30 days rosuvastatin 20 mg PO DAILY 90 days sennosides (Natural Senna Laxative) 17.2 mg (2 x 8.6 mg) PO BEDTIME Shower Chair As directed topiramate 25 mg PO DAILY 30 days trazodone 25 mg PO BEDTIME Ventolin HFA 90 mcg/actuation (albuterol sulfate) 2 puffs inhalation Q6H PRN 30 days NS Tobacco use date assessed: 12/07/24 Dental Screening Dental Screen Date: 10/12/24 HPI 1mth f/u HPI Details The patient is a 59-year-old female presenting for a follow-up focusing on possible fibromyalgia management, as well as evaluation for a positive ISIDRA screen, bradycardia, and long-standing issues such as elevated blood sugar and cholesterol levels. Patient believes she may have fibromyalgia due to symptoms including multiple joint and muscle pains, especially in the back and neck areas, where she notes high-intensity pain levels. This condition previously responded to gabapentin, albeit with sedative effects. She continues to manage significant anxiety and depression with therapy interventions. Additionally, bradycardia discovered in August at a hospital setting remains under review for further cardiology investigation. Concerns about metabolic control were raised with high blood sugar and cholesterol readings reported in August, although patient does not have a history of diabetes. Her dermatological history includes previously treated fungal rash with a powder medication, with nystatin, and she seeks a repeat prescription. Patient is currently on Zetia for cholesterol. Social History - Engages in therapy and counseling for anxiety and depression. - Communicates regularly with family and trusted individuals for support. - Medication history includes gabapentin for fibromyalgia management. [facility] Medical History (Updated 12/07/24 @ 13:46 by Kaley Mckenzie PA-C) Elevated random blood glucose level Depression Anxiety Sinus bradycardia Colon cancer screening ISIDRA positive Medication refill Tinea Constipation Uterine fibroid Fibroids Physical exam Polyarthralgia Leukopenia Ear discomfort JAXSON (generalized anxiety disorder) Moderate recurrent major depression Neck pain New daily persistent headache Postablative hypothyroidism Graves disease Severe major depression without psychotic features Left leg pain Pernicious anemia Lumbar degenerative disc disease Lumbar pain Nausea and vomiting GERD (gastroesophageal reflux disease) Hypovitaminosis D B12 deficiency Dyslipidemia Autoimmune thyroiditis Surgical History History of laparoscopic cholecystectomy Family History Father Medical history unknown Mother Chronic mental illness Diabetes Hypertension Maternal Grandfather Stroke Maternal Aunt Uterine cancer Family/Other FH: mental illness Maternal Grandmother Diabetes Social History Household Members: None Housing: Apartment Are you a primary managed care coordinator to a significant other at home: Yes (mom, brothers) Do you presently have visiting nurse or other home services: No Alcohol intake: current Alcohol intake frequency: does not drink Alcohol type: wine and other Patient Tobacco Use Status: Former Tobacco user Tobacco use type: Cigarette e-Cigarette/Vaping Use: Never Used Second Hand Smoke Exposure: Yes service: No Current occupational status: disabled Sexual orientation: Straight/Heterosexual Gender identity: Female Cognitive needs: No Hearing needs: No Vision needs: No Questionnaire PHQ-9 Over the last 2 weeks, how often have you been bothered by any of the following problems? 1. Little interest or pleasure in doing things: more than half the days 2. Feeling down, depressed, or hopeless: several days 3. Trouble falling or staying asleep, or sleeping too much: several days 4. Feeling tired or having little energy: several days 5. Poor appetite or overeating: several days 6. Feeling bad about yourself - or that you are a failure or have let yourself or your family down: several days 7. Trouble concentrating on things, such as reading the newspaper or watching television: several days 8. Moving or speaking so slowly that other people could have noticed. Or the opposite - being so fidgety or restless that you have been moving around a lot more than usual: several days 9. Thoughts that you would be better off or of hurting yourself in some way: several days Total score: 10 Depression Screening Interpretation: Positive Depression Screening Follow-up: Existing condition and In treatment Depression Screening Done: Yes 24424 - PHQ-9 Billing: Yes Source: Developed by Drs. Moncho Barriga, Kianna Salcedo, Abbe Donato and colleagues, with an educational lorenzo from [employer]. Thrive Questionnaire Date Thrive assessed: 10/12/24 I am a: Patient What is your living situation today?: I choose not to answer this question Within the past 12 months, did the food you bought not last and you didn't have the money to get more?: I choose not to answer this question Within the past 12 months, did you worry whether your food would run out before you got money to buy more?: I choose not to answer this question Do you have trouble paying for medicines?: No Do you have trouble getting transportation to medical appointments?: Yes Do you have trouble paying your heating and electricity bill?: No Do you have trouble taking care of your child, family member or friend?: I choose not to answer this question Do you have trouble with day-to-day activities such as bathing, preparing meals, shopping, managing finances, etc.?: Yes Are you currently unemployed and looking for a job?: No Are you interested in more education?: I choose not to answer this question Please select the resources that you would like help with: None Currently or been in a relationship where the following occur: I choose not to answer THRIVE Score: 1 AUDIT C Alcohol Use Questionnaire (AUDIT-C) 1. How often do you have a drink containing alcohol?: Never Total Score: 0 Score Reviewed/Action Taken: No JAXSON-7 AMB Questionnaire JAXSON-7 Date JAXSON - 7 assessed: 12/07/24 Feeling nervous, anxious, or on edge: 3 = Nearly every day Not being able to stop or control worryin = Nearly every day Worrying too much about different things: 3 = Nearly every day Trouble relaxin = Nearly every day Being so restless that it is hard to sit still: 3 = Nearly every day Becoming easily annoyed or irritable: 3 = Nearly every day Feeling afraid as if something awful might happen: 3 = Nearly every day Total JAXSON-7 score (0-4 normal; 5-9 mild; 10-14 moderate; 15-21 severe): 21 Source: Developed by Drs. Moncho Barriga, Kianna Salcedo, Abbe Donato and colleagues, with an educational lorenzo from [employer]. JAXSON-7 Assessment Billing JAXSON-7 Assessment Tool: JAXSON-7 Assessment 94869 Review of Systems Const Details: - Musculoskeletal: Reports intense joint and muscle pains in multiple areas including back, neck, and joints. - Cardiovascular: Reports past issue of bradycardia identified in August. - Dermatological: Reports prior rash treated with a powder. - Endocrine: Reports elevated blood sugar. - Metabolic/Nutrition: Reports high cholesterol levels. - Skeletal: Reports muscle relaxer use for symptom relief. - Psychiatric: Reports anxiety and depression, engaged in therapy. Physical exam (Primary Care) Vital Signs: Last Vital Signs Temp 97.7 F 12/07/24 10:55 Pulse 63 12/07/24 10:55 BP 110/68 12/07/24 10:55 Pulse Ox 97 12/07/24 10:55 Oxygen Delivery Method Room Air 12/07/24 10:55 Care Plan Goal for BP management: <130/90 at Goal BMI result Body Mass Index 29.1 BMI Assessment/Plan discussion: High BMI High, discussed plan: lifestyle, weight reduction, dietary, physical activity and alcohol moderation Tobacco/Smoking Status: Tobacco use Status Tobacco use date assessed 12/07/24 12/07/24 10:59 Patient Tobacco Use Status Former Tobacco user 12/07/24 10:54 Tobacco use type Cigarette 12/07/24 10:54 e-Cigarette/Vaping Use Never Used 12/07/24 10:54 PHQ-9: PHQ-9 Score PHQ-9: Total score 10 12/07/24 11:13 Depression Screening Interpretation: Positive Depression Screening Follow-up: Existing condition and In treatment Thrive Assessment: Date of Thrive Assessment Date Thrive assessed 10/12/24 12/07/24 10:54 Currently or been in a relationship where the following occur: I choose not to answer Const Other: Appearance: Alert. Oriented X3. No acute distress. Head: Normal external exam. Normocephalic. Atraumatic. Eyes: Pupils are equal, round, and reactive to light. Extraocular movements intact. Conjunctiva and sclera normal. Eyelids normal. Ears: External auditory canal normal. Tympanic membranes normal. Throat: Pharynx normal. Uvula midline. Moist mucous membranes. Neck: Normal inspection. Neck supple. Full range of motion. Cardiovascular: Normal heart rate and rhythm. Respiratory: No respiratory distress. Painless inspiration. Abdomen: Soft and nontender. Back: Full range of motion noted. Skin: Skin warm and dry. Normal skin color. Normal skin turgor. No rashes/lesions/lacerations noted. Extremities: Patient reports multiple joint pain although no obvious joint swelling or erythema is noted. She has good range of motion of all extremities. Neuro: Oriented X 3. No motor deficit. No sensory deficit. Reflexes normal. Results Reviewed Results Reviewed: - Labs: Positive Antinuclear Antibody (ISIDRA) screen conducted in the past, indicating a possible autoimmune condition. - Tests and Diagnostics: Bradycardia noted previously; details of associated lab work (e.g., blood sugar and cholesterol) from August. Coding Level of Care Code Est Pt Level 4 (41413) Complex EM visit Add On G2211 Diagnoses Polyarthralgia M25.50 ISIDRA positive R76.8 Colon cancer screening Z12.11 Sinus bradycardia R00.1 Anxiety F41.9 Depression F32.A Elevated random blood glucose level R73.9 Tinea B35.9 Additional Codes JAXSON-7 Assessment Billing - JAXSON-7 Assessment Tool: JAXSON-7 Assessment 96715 ([id number]) PHQ-9 - 24596 - PHQ-9 Billing: Yes ([id number]) Assessment & Plan Assessment & Plan (1) Polyarthralgia: Code(s): M25.50 - Pain in unspecified joint Category: Medical Plan: I advised symptomatic relief measures and prescribed steroids with a limited course for managing acute episodes while awaiting Rheumatology input. Condition is chronic and stable continue to monitor. (2) ISIDRA positive: Code(s): R76.8 - Other specified abnormal immunological findings in serum Category: Medical Plan: I advocated for Rheumatology referral for expert evaluation of positive ISIDRA amidst joint pain manifestations to discern any systemic cause. Condition is chronic and stable will continue to monitor. (3) Colon cancer screening: Code(s): Z12.11 - Encounter for screening for malignant neoplasm of colon Category: Medical Plan: Will refer patient to gastroenterology for colon cancer screening. (4) Sinus bradycardia: Code(s): R00.1 - Bradycardia, unspecified Category: Medical Plan: I suggested cardiology consultation to assess the reported bradycardia for any needed interventions pending observations. Condition is chronic and stable will continue to monitor. (5) Anxiety: Code(s): F41.9 - Anxiety disorder, unspecified Category: Medical Plan: Continued focus on therapy engagement for ongoing mental health management was agreed as sufficient at this stage. Condition is chronic and stable will continue to monitor. (6) Depression: Code(s): F32.A - Depression, unspecified Category: Medical Plan: Continued focus on therapy engagement for ongoing mental health management was agreed as sufficient at this stage. Condition is chronic and stable will continue to monitor. (7) Elevated random blood glucose level: Code(s): R73.9 - Hyperglycemia, unspecified Category: Medical Plan: I recommended monitoring of blood glucose, relaying results, and engaging in lifestyle initiatives to address elevations. Will have patient go to the lab for hemoglobin A1c. Will continue to monitor. (8) Tinea: Comment: under bilateral breast Code(s): B35.9 - Dermatophytosis, unspecified Category: Medical Plan: I authorized repeat niacin usage for dermatological management based on successful historical application. Condition chronic and is stable continue to monitor. Plan Plan Patient was informed and verbally consented to the use of an ambient scribe for clinic note documentation during this visit. 1. Possible fibromyalgia/multiple joint pain I advised symptomatic relief measures and prescribed steroids with a limited course for managing acute episodes while awaiting Rheumatology input. 2. Anxiety And Depression Continued focus on therapy engagement for ongoing mental health management was agreed as sufficient at this stage. 3. Bradycardia I suggested cardiology consultation to assess the reported bradycardia for any needed interventions pending observations. 4. Elevated Blood Sugar Levels I recommended monitoring of blood glucose, relaying results, and engaging in lifestyle initiatives to address elevations. 5. High Cholesterol Dietary changes were emphasized to manage the identified hyperlipidemia, alongside follow-up for evaluation of interventions. 6. Positive Isidra Test I advocated for Rheumatology referral for expert evaluation of positive ISIDRA amidst joint pain manifestations to discern any systemic cause. 7. fungal Rash I authorized repeat niacin usage for dermatological management based on successful historical application. During this visit, I addressed the patient's concern with multifactorial symptoms including joint pains linked to fibromyalgia and reviewed current management strategies, affirming referral for specialist rheumatology consultation. We discussed continuous support for anxiety and depression management, and she confirmed ongoing engagement with therapy. I advised a cardiology referral for bradycardia investigations following records prior in August. The patient was educated on dietary management to address high blood sugar and cholesterol levels, ensuring a comprehensive approach to cardiovascular health. I also confirmed issuing a prescription for topical management of an intermittent rash. Incorporating patient encouragement for regular follow-ups and engagement with the relevant specialists was highlighted for several discussed concerns, ensuring resolution of outstanding diagnostic questions. Orders: Orders Hemoglobin A1c Today Z00.00 - Encounter for general adult medical examination without abnormal findings Referrals Rheumatology Referral M25.50 - Pain in unspecified joint, R76.8 - Other specified abnormal immunological findings in serum Cardiology Referral R00.1 - Bradycardia, unspecified Gastroenterology Referral Z12.11 - Encounter for screening for malignant neoplasm of colon Medications: New prednisone 40 mg (2 x 20 mg) PO DAILY 5 days 10 tabs 2RF Refilled naproxen 500 mg PO Q12H PRN 20 tabs 1RF pain (scale score 1-3) nystatin 1 appl topical QID 60 grams 3RF Patient Instructions: - Continue therapy and counseling for anxiety and depression. - Take muscle relaxers as needed for fibromyalgia pain. - Use prescribed steroids only for severe joint pain flare-ups. - Expect a call for a rheumatology appointment regarding joint pain and ISIDRA results. - Follow up with cardiology regarding bradycardia concerns. - Monitor blood sugar levels; pursue dietary changes for better glucose control. - Make dietary adjustments for high cholesterol. - Use niacin powder as directed for any rash recurrence. - Ensure follow-up with primary care or relevant specialists for any new or escalating issues.
[2024-12-07 10:55] VITALS: BP 110/68; PULSE 63; TEMP 36.5; O2SAT 97; BMI 29.1
--- OUTSIDE RECORDS SUMMARY | 2024-12-07 12:25 | XMS_ITS | Clinical Summary ---
Author Organization [email or web address] [facility] Address [address] [place] [address] Care Team Providers Care Ground Wood Supervisor Name Role Phone Unavailable Primary Care Provider [...] Most Recently Relevant to Health Maintenance Insurance [facility] MEDICAID STAND ADULT
== END 2024-12-07 11:30 | disposition home or self-care (01) ==
LOC: HO.HMCH 10:49
PROVIDERS: PCP Internal Medicine; Visit Provider Physician Assistant Medical
DX: M25.50 Pain in unspecified joint (principal); R76.8 Other specified abnormal immunological findings in serum; Z12.11 Encounter for screening for malignant neoplasm of colon; R00.1 Bradycardia, unspecified; F41.9 Anxiety disorder, unspecified; F32.A Depression, unspecified; R73.9 Hyperglycemia, unspecified; B35.9 Dermatophytosis, unspecified

== ENCOUNTER 2025-01-24 10:25 | Outpatient (REF) | payer MEDICARE, MEDICAID, SELFPAY ==
[2025-01-24 10:56] LABS: Estimated Average Glucose 126 mg/dL; Total Hemoglobin (HGBA1C) 3808.5851 umol/L
--- OUTSIDE RECORDS SUMMARY | 2025-01-24 11:51 | XMS_ITS | Clinical Summary ---
Author Organization [employer] Address [address] [place] [address] Care Team Providers Care Gang Worker Name Role Phone Unavailable Primary Care Provider [...] 14 days. 473 mL 3 Active Immunizations Immunization Administration Dates Next Due INFLUENZA VACCINE QUADRIVALE [...] Screening 1965 SDOH Screening 1965 Sigmoidoscopy 1965 Disability Screening 1963 Alcohol/Substance Use Screening 1975 Hepatitis C [...] ( - season) 2024 07/29/2021, 11/06/2020, 10/09/2020 Tobacco Screening 05/20/2024 05/20/2023 Dental X-Ray: Bitewings 05/21/2024 05/20/20 23, 02/10/2017, 02/03/2016, Additional history exists Influenza Vaccine (Season Ended) 2025 09/05/2019, 07/08/2018, 04/14/2017, Additional history exists RSV Patients and Patients [...] patient's age to complete this topic Meningococcal B Vaccine Aged Out No l onger eligible based on patient's age to complete [...] Most Recently Relevant to Health Maintenance Insurance [facility] MEDICAID STAND ADULT
== END 2025-01-24 10:26 | disposition home or self-care (01) ==
LOC: HO.LAB 10:25
PROVIDERS: PCP Internal Medicine; Visit Provider Physician Assistant Medical
DX: Z01.419 Encounter for gynecological examination (general) (routine) without abnormal findings (principal); R10.2 Pelvic and perineal pain; Z13.1 Encounter for screening for diabetes mellitus
CPT/HCPCS: 36415; 81003; 83036; 99212; G0101

== ENCOUNTER 2025-01-24 10:43 | Outpatient (AMB) | payer MEDICARE, MEDICAID, SELFPAY ==
--- NOTE | 2025-01-24 10:56 | A.OFFVIS_ITS ---
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 She is doing well with corporate legal assistant concerns: pain on the lower left pelvis radiating to the left flank, on and off since this winter. History of constipation, take meds when she can remember. Admits to not eating well with stress over the last 6months (brother ). Has vomiting often when she is nervous/upset. Currently not sexually active. Denies any vaginal dryness or irritation. Last pap smear; 2022, negative. Last mammogram; 2023. Colonoscopy is UTD. Denies any family history of breast, ovarian or colon cancer. [facility] Medical History Elevated random blood glucose level Depression Anxiety Sinus bradycardia Colon cancer screening DAILY positive Medication refill Tinea Constipation Uterine fibroid Fibroids Physical exam Polyarthralgia Leukopenia Ear discomfort JAXSON (generalized anxiety disorder) Moderate recurrent major depression Neck pain New daily persistent headache Postablative hypothyroidism Graves disease Severe major depression without psychotic features Left leg pain Pernicious anemia Lumbar degenerative disc disease Lumbar pain Nausea and vomiting GERD (gastroesophageal reflux disease) Hypovitaminosis D B12 deficiency Dyslipidemia Autoimmune thyroiditis Surgical History History of laparoscopic cholecystectomy Family History Father Medical history unknown Mother Chronic mental illness Diabetes Hypertension Maternal Grandfather Stroke Maternal Aunt Uterine cancer Family/Other FH: mental illness Maternal Grandmother Diabetes Social History Household Members: None Housing: Apartment Are 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 a primary field care manager to a significant other at home: Yes (mom, brothers) Do you presently have visiting nurse or other home services: No Alcohol intake: current Alcohol intake frequency: does not drink Alcohol type: wine and other Patient Tobacco Use Status: Former Tobacco user Tobacco use type: Cigarette e-Cigarette/Vaping Use: Never Used Second Hand Smoke Exposure: Yes service: No Current occupational status: disabled Sexual orientation: Straight/Heterosexual Gender identity: Female Cognitive needs: No Hearing needs: No Vision needs: No Female Reproductive History Menstrual Total pregnancies: 7 Full term: 1 Premature: 2 Number of Living Children: 3 Ab induced: 3 Ab spontaneous: 1 Date of last pap smear: 10/23/22 (neg, 04/30 unsat neg hpv) Date of Mammogram: 12/08/23 (Birad 1) Review of Systems Const All systems reviewed & are unremarkable except as noted in HPI and below Reports as per HPI Eyes Reports no additional complaints ENT Reports no additional complaints Card Reports no additional complaints Resp Reports no additional complaints GI Reports as per HPI and Reports no additional complaints Reports as per HPI Musc Reports no additional complaints Skin/Breast Reports as per HPI Neuro Reports no additional complaints Psych Reports no additional complaints Endo Reports no additional complaints Jonas/Lymph Reports no additional complaints Aller/Immun Reports no additional complaints Physical Exam Vital Signs: Last Vital Signs BP 124/72 01/24/25 10:58 BMI result Body Mass Index 29.3 Const General: cooperative, healthy appearing, no acute distress, well developed and alert Orientation/consciousness: patient oriented x3 HEENT Head: Yes normal to inspection Eyes General: appearance normal, both eyes and all related structures Neck Neck: Yes normal visual inspection Thyroid: Thyroid normal Chest Chest palpation & inspection: normal inspection of the chest and other (no puckering, dimpling, peau de orange, retraction, discharge, masses) Breast/axilla inspection: normal inspection of the breasts Breast/axilla palpation: normal palpation of the breasts Resp Effort & Inspection: normal respiratory effort GI Inspection: Yes normal to inspection Palpation (GI): Soft to palpation Rectal Exam - Female: deferred General: Yes bladder normal to palpation External Female Exam: normal external appearance and normal appearance of the urethra Speculum Exam - Vagina: normal palpation and vagina atrophic Speculum Exam - Cervix: normal appearance of the cervix and normal palpation Bimanual exam- vagina & uterus: normal bimanual exam, normal palpation, uterine size normal, bladder normal to palpation, normal palpation and non-tender Bimanual Exam- Adnexa, other: no masses Skin General skin exam: no rashes or lesions noted Rashes: no rashes Neuro General: patient oriented x3 Cognition (Neuro): normal cognition Extrem General: Yes normal to inspection Psych Attitude: cooperative Thought process: Normal thought process present Results AMB Urinalysis, Automated UA Leukoctes 0 Madelaine/uL Last Edit by Bessy Guerrero [facility] on 01/24/25 11:41 UA Nitrite Negative Last Edit by Bessy Guerrero [facility] on 01/24/25 11:41 UA Urobilinogen 0 mg/dL Last Edit by Bessy Guerrero [facility] on 01/24/25 11:4 1 UA Protein 0.5 mg/dL Last Edit by Bessy Guerrero [facility] on 01/24/25 11:41 UA pH 6.0 Last Edit by Bessy Guerrero [facility] on 01/24/25 11:41 UA Blood 0 Sg/uL Last Edit by Bessy Guerrero [facility] on 01/24/25 11:41 UA Specific [place] 1.030 Last Edit by Bessy Guerrero [facility] on 01/24/25 11:41 UA Ketone Negative Last Edit by Bessy Guerrero [facility] on 01/24/25 11:41 UA Bilirubin 0 mg/dL Last Edit by Bessy Guerrero [facility] on 01/24/25 11:41 UA Glucose 0 mg/dL Last Edit by Bessy Guerrero [facility] on 01/24/25 11:41 Results Reviewed Results Reviewed: Laboratory Last Values Urine pH (Auto) 6.0 01/24/25 11:35 Specific [place] (Auto) 1.030 01/24/25 11:35 Urine Protein (Auto) 0.5 mg/dL 01/24/25 11:35 Glucose (UA)(Auto) 0 mg/dL 01/24/25 11:35 Urine Ketones (Auto) Negative 01/24/25 11:35 Urine Blood (Auto) 0 Sg/uL 01/24/25 11:35 Urine Nitrite (Auto) Negative 01/24/25 11:35 Urine Bilirubin (Auto) 0 mg/dL 01/24/25 11:35 Urine Urobilinogen (Auto) 0 mg/dL 01/24/25 11:35 Leukocyte Esterase (Auto) 0 Madelaine/uL 01/24/25 11:35 Assessment & Plan Assessment & Plan (1) Pelvic pain in female: Code(s): R10.2 - Pelvic and perineal pain Category: Medical Plan: Urine dip negative, GC chlamydia BV panel obtained. Ultrasound of the pelvis ordered. Follow up in person for test results. Call with any concerns sooner. Follow up with PCP regarding GI concerns, encouraged compliance with constipation prevention medication and diet regimen. Emergency services if any increased pain that persist or worsen. The patient expressed understanding and agreement with the plan of care. All of her questions and concerns were addressed to the best of my ability. Total time I personally spent on visit and management today: ?20 minutes. Time spent included review of pertinent office notes in the electronic health record; review of laboratory and imaging results; review of personal family medical history; performing physical exam; discussing diagnosis and plan of care with the patient; documenting the encounter in the EMR. This note is constructed using voice recognition software. While every effort has been made to ensure accuracy, after school program director errors may have been included. (2) Encounter for annual routine gynecological examination: Code(s): Z01.419 - Encounter for gynecological examination (general) (routine) without abnormal findings Category: Medical Plan Discussed: Current recommendations for pap smears per ASCCP guidelines. Breast awareness, periodic self breast exams and yearly mammogram. Maintain a healthy lifestyle, well balanced diet including Calcium 1,200 mg and Vitamin D 600 IU daily, and routine exercise. Use of condoms for STI prevention if indicated. Replens moisturizer use reviewed if needed in the future. Contact the office with any postmenopausal bleeding. Patient verbalizes understanding and agrees to the plan of care. She was given opportunity to ask questions and all questions were answered to the best of my ability. 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 This note is constructed using voice recognition software. While every effort has been made to ensure accuracy, after school program director errors may have been included. Orders: Orders Bacterial Vaginosis Panel Today R10.2 - Pelvic and perineal pain AMB Urinalysis Automated Today R10.2 - Pelvic and perineal pain US pelvic and transvaginal Today D25.9 - Leiomyoma of uterus, unspecified, R10.2 - Pelvic and perineal pain CT NG by PCR Today R10.2 - Pelvic and perineal pain Coding Level of Care Code Est Pt Level 2 (14773) Est Pt Prev Care 40-64y(43849) Diagnoses Pelvic pain in female R10.2 Encounter for annual routine gynecological examination Z01.419
[2025-01-24 10:58] VITALS: BP 124/72; BMI 29.3
== END 2025-01-24 12:03 | disposition home or self-care (01) ==
LOC: HO.HWS 10:43
PROVIDERS: PCP Internal Medicine; Visit Provider Advanced Practice Midwife
DX: R10.2 Pelvic and perineal pain (principal); D25.9 Leiomyoma of uterus, unspecified; Z91.89 Other specified personal risk factors, not elsewhere classified
CPT/HCPCS: 99213; G0101

== ENCOUNTER 2025-01-24 11:29 | Outpatient (REF) | payer MEDICARE, MEDICAID, SELFPAY ==
[2025-01-24 13:49] LABS: CT PCR NOT DETECTED (Not Detect.); NG PCR NOT DETECTED (Not Detect.)
[2025-01-24 13:51] LABS: Bacterial Vaginosis PCR NEGATIVE (Negative); Candida Group PCR NOT DETECTED (Not Detect); Candida glab krusei PCR NOT DETECTED (Not Detect); Trichomonas vaginalis PCR NOT DETECTED (Not Detect)
== END 2025-01-24 11:30 | disposition home or self-care (01) ==
LOC: HO.LNP 11:29
PROVIDERS: Visit Provider Advanced Practice Midwife
DX: R10.2 Pelvic and perineal pain (principal)
CPT/HCPCS: 81515; 87491; 87591

== ENCOUNTER 2025-02-21 10:20 | Emergency (ER) | payer MEDICARE, MEDICAID, SELFPAY ==
--- NOTE | ~2025-02-21 | CT_ITS ---
EXAMINATION: CT ABDOMEN AND PELVIS WITH CONTRAST CLINICAL INFORMATION: Diffuse abdominal tenderness DLP: 493 mGY*cm COMPARISON: None available. TECHNIQUE: Multidetector volumetric images were obtained from the superior aspect of the liver through the pubic symphysis following administration 85 mL of Omnipaque 350 intravenous contrast. Sagittal and coronal reformatted images were obtained on the technologist's workstation. Oral contrast: No This CT examination was performed using dose optimization techniques as appropriate, variously including the following: *Automated exposure control *Adjustment of mA and/or kV according to patient size (this includes techniques or standardized protocols for targeted exams where dose is matched to indication/reason for exam; i.e. extremities or head) *Use of iterative reconstruction technique FINDINGS: LUNG BASES: The visualized lung bases are unremarkable. HEPATOBILIARY: There is a 14 mm partially exophytic lesion involving posterior inferior right hepatic segment with peripheral globular enhancement consistent with a benign cavernous hemangioma. Liver is otherwise homogeneous. The gallbladder is surgically absent and there are clips in the gallbladder fossa. Common bile duct diameter measured 5 mm. PANCREAS: The pancreas is homogeneous and unremarkable. SPLEEN: The spleen is mildly enlarged measuring 14 cm long axis. ADRENALS: Unremarkable without nodules or mass. GENITOURINARY: There is no hydronephrosis. There is no nephrolithiasis. There is no bladder wall thickening. Uterus and ovaries are unremarkable. BOWEL: Moderate diverticulosis is present in the descending colon. There are a few pseudodiverticula in the sigmoid colon. The mid to lower portion of the descending colon demonstrates mild wall thickening mesenteric fat stranding with trace free fluid. No extraluminal gas is detected. No loculated fluid collection is seen. The gastrointestinal tract is otherwise unremarkable, including the appendix. LYMPHOVASCULAR: There is no adenopathy. There is no aneurysm. There are mild atherosclerotic calcifications. ABDOMINAL CAVITY and Wall: Small umbilical hernia contains adipose tissue. SOFT TISSUES: Unremarkable without abnormal masses or fluid collections. Skeletal structures: There are no lytic or blastic lesions. CT/CT abdomen pelvis w IV con IMPRESSION: Acute diverticulitis involving the mid to lower descending colon without evidence of abscess or perforation. Electronically signed by: Abe Moe MD 02/21/2025 12:50 PM EDT
[2025-02-21 10:26] VITALS: BP 137/86; PULSE 75; RESP 16; TEMP 36.9; O2SAT 98; BMI 30.3
[2025-02-21 10:43] LABS: MANUAL DIFF FLAG NO
[2025-02-21 10:53] LABS: Hematocrit 40.1 % (37.0-47.0); Hemoglobin 13.9 g/dl (12.0-16.0); Imm Gran Abs Auto 0.02 X10*3/uL (0.00-0.03); Imm Gran Pct Auto 0.2 % (0.0-0.4); Lymphocytes Absolute Auto 1.0 X10*3/uL (1.2-4.9); Mean Corpuscular HGB Conc 34.7 g/dl (31.0-35.0); Mean Corpuscular Hemoglobin 29.0 pg (27.0-33.0); Mean Corpuscular Volume 83.7 fL (80.0-98.0); NRBC Abs Auto 0.000 X10*3/uL (0.0-0.012); NRBC Pct Auto 0.0 /100WBC (0.0-0.2); Platelet Count 137 X10*3/uL (160-400); Red Blood Count 4.79 X10*6/uL (4.20-5.50); White Blood Count 8.6 X10*3/uL (4.8-10.8)
[2025-02-21 10:58] LABS: Alanine Aminotransferase 13 U/L (0-31); Albumin Level 4.4 g/dL (3.5-5.0); Alkaline Phosphatase 70 U/L (39-117); Anion Gap 11 (12-20); Aspartate Amino Transferase 18 U/L (5-31); Blood Urea Nitrogen 7 mg/dL (9-16); Calcium 9.2 mg/dL (8.4-10.2); Carbon Dioxide 25 mmol/L (22-29); Chloride 106 mmol/L (96-108); Creatinine Clr Calc Pharmacy 69.9; Estimated Glomerular Filt Rate > 60; Potassium 3.9 mmol/L (3.3-5.1); Sodium 138 mmol/L (135-145); Total Protein 6.9 g/dL (6.5-8.0)
[2025-02-21 11:17] VITALS: BP 135/77; PULSE 73; RESP 18; TEMP 36.8; O2SAT 97
[2025-02-21 11:31] LABS: Appearance Urine Clear; Glucose Urine UA Negative (Negative); PH 5.5 (5.0-9.0); Specific Gravity - Urine 1.025 (1.005-1.025); UMIC TRIGGER UACC YES
--- NOTE | 2025-02-21 11:55 | ED.ABDPAIN ---
HPI - Abdominal Pain General Chief Complaint: Abdominal Pain Stated Complaint: abd pain, back pain Time Seen by Provider: 02/21/25 11:40 Source: patient Mode of arrival: ambulatory Limitations: no limitations History of Present Illness ED Provider: Adrianna Cano PA-C HPI narrative: 60 y/o F patient with past medical history significant for major depression, anxiety, and a positive, constipation, uterine fibroid, polyarthralgia, Graves disease, pernicious anemia, GERD reporting to the emergency department today for evaluation of diffuse abdominal pain. She reports that for months now she has had food intolerances that causes her to either have nausea or vomiting and/or diarrhea at the same time this happens almost on a regular daily basis. She goes through spurts of losing weight but tries her best to find foods that do not aggravate her it varies too much. the last time she saw her primary care provider was a month ago who referred her Gastroenterology which is not until March 19, 3 weeks from now. Patient's brother last June at [facility] jump to some intra-abdominal complication this has caused patient agreed to her stress in his she is concerned that she could have the same thing. she also states history significant for uterine fibroid for which she has seen her OBGYN who told her it was only the size of a quarter. She does have bowel transvaginal ultrasound to check the size again. She reports no abnormal vaginal bleeding or pelvic cramping. She does have some left-sided flank pain but it is not call if you she feels like it comes from her abdomen for which she points hurts all over some days it is in the middle some days since epigastric other times it is in the right or lower quadrant. Patient has had a cholecystectomy back in the s. she denies any EtOH use and has no marijuana use either. She had been voiding regularly she denies dysuria urgency or frequency but does notice her urine being darker. She has no vaginal symptoms or concerns for STIs. Last time she vomited with diarrhea was yesterday after trying to have soup she has not tried to eat anything since that time last void was here she is able to tolerate water which seems to be the only thing that does not aggravate her. she denies any dizziness or headaches but sometimes does admit to feeling lightheaded. She has no chest pain or shortness of breath denies any recent URI symptoms. She has never noticed any blood in her stool or her vomit. Patient can not recall last colonoscopy results. No fevers or chills. She denies feeling nauseous and no back pain. Related Data Home Medications ?Medication ?Instructions ?Recorded ?Confirmed magnesium 250 mg tablet 250 mg PO DAILY 10/26/22 12/07/24 duloxetine 20 mg capsule,delayed 20 mg PO DAILY 03/29/23 12/07/24 release fluorometholone 0.1 % eye 1 drp ophthalmic (eye) TID 03/29/23 12/07/24 drops,suspension trazodone 50 mg tablet 25 mg PO BEDTIME 03/29/23 12/07/24 buspirone 5 mg tablet 5 mg PO TID PRN anxiety 03/22/24 12/07/24 escitalopram oxalate 5 mg tablet 5 mg PO DAILY 12/07/24 12/07/24 lorazepam 2 mg tablet 5 mg PO BEDTIME PRN 12/07/24 12/07/24 Previous Rx's ?Medication ?Instructions ?Recorded gabapentin 300 mg capsule 300 mg PO TID 30 days #90 caps 09/04/21 Shower Chair #1 ea 10/17/21 Ventolin HFA 90 mcg/actuation 2 puff inhalation Q6H PRN 01/27/23 aerosol inhaler (albuterol sulfate) shortness of breath or wheezing 30 days #8 grams albuterol sulfate 90 mcg/actuation 1 inh inhalation QID PRN shortness 03/22/24 aerosol inhaler of breath or wheezing 30 days #6.7 grams cromolyn 4 % eye drops 1 drp ophthalmic (eye) QID 7 days 03/22/24 #10 mL ezetimibe 10 mg tablet (Zetia) 10 mg PO DAILY 90 days #90 tabs 03/22/24 ibuprofen 800 mg tablet 800 mg PO TID PRN fever or pain 30 03/22/24 days #90 tabs pantoprazole 40 mg tablet,delayed 40 mg PO DAILY #90 tabs 03/22/24 release rosuvastatin 20 mg tablet 20 mg PO DAILY 90 days #90 tabs 03/22/24 sennosides 8.6 mg tablet (Natural 17.2 mg (2 x 8.6 mg) PO BEDTIME 03/22/24 Senna Laxative) constipation #60 tabs rizatriptan 10 mg tablet 10 mg PO Q2-4H PRN migraine 03/29/24 headache 30 days #10 tabs topiramate 25 mg sprinkle capsule 25 mg PO DAILY 30 days #30 caps 05/09/24 lidocaine 5 % topical patch 1 patch topical DAILY 15 days #15 06/27/24 ea cholestyramine (with sugar) 4 gram 4 g PO DAILY 60 days #60 ea 07/07/24 powder for susp in a packet lidocaine 5 % topical patch 1 patch topical DAILY #15 ea 08/10/24 (Lidoderm) propranolol 10 mg tablet 10 mg PO BID 30 days #60 tabs 08/11/24 cholecalciferol (vitamin D3) 25 25 mcg PO DAILY 90 days #90 caps 10/12/24 mcg (1,000 unit) capsule cyclobenzaprine 5 mg tablet 5 mg PO BEDTIME PRN muscle spasm 10/12/24 30 days #90 tabs docusate sodium 100 mg capsule 100 mg PO BID constipation #90 caps 10/12/24 (Colace) docusate sodium 283 mg/5 mL enema 283 mg (5 mL) MA DAILY #150 mL 10/12/24 levothyroxine 100 mcg tablet 100 mcg PO DAILY #90 tabs 10/12/24 meclizine 25 mg tablet 25 mg PO BID PRN dizziness 5 days 10/12/24 #90 tabs mecobalamin (vitamin B12) 1,000 1,000 mcg PO DAILY 60 days #60 ea 10/12/24 mcg lozenges polyethylene glycol 3350 17 17 g PO BID #510 grams 10/12/24 gram/dose oral powder (Miralax) naproxen 500 mg tablet 500 mg PO Q12H PRN pain (scale 12/07/24 score 1-3) #20 tabs nystatin 100,000 unit/gram topical 1 appl topical QID #60 grams 12/07/24 powder prednisone 20 mg tablet 40 mg (2 x 20 mg) PO DAILY 5 days 12/07/24 #10 tabs diclofenac sodium 1 % topical gel 2 g topical QID 30 days #100 grams 02/12/25 ciprofloxacin HCl 500 mg tablet 500 mg PO BID #10 tabs 02/21/25 metronidazole 500 mg tablet 500 mg PO Q8H #30 tabs 02/21/25 Allergies Allergy/AdvReac Type Severity Reaction Status Date / Time Penicillins (PENICILLINS) Allergy Intermediate RASH Verified 01/24/25 10:58 statin AdvReac Intermediate elevated Uncoded 02/21/25 10:29 liver enzymes Review of Systems Review of Systems Yes all other systems are reviewed and are negative REPLACED BY [facility] Past Medical History Attestation statement: The following information was validated with the patient. Source: old records reviewed and nursing notes reviewed Medical History Elevated random blood glucose level Depression Anxiety Sinus bradycardia Colon cancer screening DAILY positive Medication refill T[place] Constipation Uterine fibroid Fibroids Physical exam Polyarthralgia Leukopenia Ear discomfort JAXSON (generalized anxiety disorder) Moderate recurrent major depression Neck pain New daily persistent headache Postablative hypothyroidism Graves disease Severe major depression without psychotic features Left leg pain Pernicious anemia Lumbar degenerative disc disease Lumbar pain Nausea and vomiting GERD (gastroesophageal reflux disease) Hypovitaminosis D B12 deficiency Dyslipidemia Autoimmune thyroiditis Surgical History History of laparoscopic cholecystectomy Family History Family History Father Medical history unknown Mother Chronic mental illness Diabetes Hypertension Maternal Grandfather Stroke Maternal Aunt Uterine cancer Family/Other FH: mental illness Maternal Grandmother Diabetes Social History Social History Household Members: None Housing: Apartment Are you a primary career coordinator to a significant other at home: Yes (mom, brothers) Do you presently have visiting nurse or other home services: No Alcohol intake: current Alcohol intake frequency: does not drink Alcohol type: wine and other Patient Tobacco Use Status: Former Tobacco user Tobacco use type: Cigarette e-Cigarette/Vaping Use: Never Used Second Hand Smoke Exposure: Yes service: No Current occupational status: disabled Sexual orientation: Straight/Heterosexual Gender identity: Female Cognitive needs: No Hearing needs: No Vision needs: No Physical Exam ED Vital Signs: Vital Signs - 24 hr 02/21/25 10:26 02/21/25 11:17 02/21/25 12:27 Temperature 98.4 F 98.2 F Pulse Rate 75 73 Respiratory Rate 16 18 18 Blood Pressure 137/86 135/77 Pulse Oximetry 98 97 Oxygen Delivery Method Room Air Room Air BMI result Body Mass Index 30.3 General: Appears in no acute distress, appears well nourished body habitus is obese, appears stated age. No septic or ill-appearing. Vitals reviewed normal, PMH/Social and Surgical hx reviewed including allergies and current medications. - reviewed for prior visits here and read as it pertains to similar CC. Head: Normocephalic, no obvious trauma or skin lesions noted. Eyes: EOMI ENMT: moist oral mucosa Neck: trachea midline, No lymphadenopathy Cardiovascular: peripheral perfusion normal, Regular heart rate, regular rhythm, no palpable aorta, distal pulses 2+ cap refill less than 3 seconds Respiratory: no respiratory distress, lungs clear to auscultation bilaterally no chest wall lesions or tenderness Abdomen: obese abdomen and soft but tenderness to palpation diffusely without significant guarding no peritoneal signs left-sided flank tenderness but no CVA tenderness no suprapubic tenderness noted negative Georges's negative McBurney point tenderness no skin lesions noted other than a scar in her umbilicus that is old appearing Extremities: warm and moving without difficulty Psych: Cooperative Neuro: Alert and oriented. Medical Decision Making Medical Decision Making MDM Narrative: Well appearing 60 y/o F with chronic abd cramping with 2 days of it being worse. Her abd is soft nontender but given acute on chronic, abd labs and CT of abd/pelvis was ordered to rule out/ in acute abdomen. At this time she is afebrile and does not meet SIRS criteira. Sepsis not suspected. DDX as below. She has declined necessity of pain medication at this time. No respiratory sxs. No sxs, but will collect urine for atypical presentation. Lab work up is reassuring. NO UTI. No leukocytosis, DANICA, or significant electrolyte imbalances or metabolic dysfunction. Discussed the results of her CT which shows: IMPRESSION: Acute diverticulitis involving the mid to lower descending colon without evidence of abscess or perforation. Discussed the options of treatment of mild diverticulitis with patient, PO fluids only vs abx and PO fluids only. She has elected to go for PO fluids and abx. We discussed disease process, therapeutic interventions, complications, and expectant mgt. Plan to follow up with GI. I did not feel she met admission criteria as she is not septic, able to tolerate PO fluids and void regularly and pain is manageable matthew in setting of the CT findings above. She was given ED return precautions. She demonstrated verbal understanding of the plan and was in agreement. She was d/c to home stable. Differential Diagnosis Differential Diagnoses: The differential diagnosis associated with the presentation includes diverticulitis gastroenteritis UTI/ kidney stone/ pyelo colitis SBO viral gastroenteritis Admission/Observation Consideration of admission/observation: Escalation of care including admission/observation considered Lab Data MDM Lab Attestation statement: I reviewed the patient's lab results. 02/21/25 10:40 02/21/25 10:40 Labs: Lab Results 02/21/25 02/21/25 Range/Units 10:40 11:23 WBC 8.6 (4.8-10.8) X10*3/uL RBC 4.79 (4.20-5.50) X10*6/uL Hgb 13.9 (12.0-16.0) g/dl Hct 40.1 (37.0-47.0) % MCV 83.7 (80.0-98.0) fL MCH 29.0 (27.0-33.0) pg MCHC 34.7 (31.0-35.0) g/dl RDW 12.8 (11.0-16.0) % Plt Count 137 L (160-400) X10*3/uL MPV 11.1 (9.4-12.3) fL Immature Gran % (Auto) 0.2 (0.0-0.4) % Neut % (Auto) 81.8 H (45-73) % Lymph % (Auto) 12.1 L (20-40) % [place] % (Auto) 5.5 (2-11) % Eos % (Auto) 0.2 (0-4) % Baso % (Auto) 0.2 (0-2) % Lymph # (Auto) 1.0 L (1.2-4.9) X10*3/uL [place] # (Auto) 0.5 (0.1-1.2) X10*3/uL Eos # (Auto) 0.0 (0.0-0.4) X10*3/uL Baso # (Auto) 0.0 (0.0-0.2) X10*3/uL Abs Immat Gran (auto) 0.02 (0.00-0.03) X10*3/uL Absolute Neuts (auto) 7.0 (2.0-8.3) x10*3/uL Absolute Nucleated RBC 0.000 (0.0-0.012) X10*3/uL Nucleated RBC % (auto) 0.0 (0.0-0.2) /100WBC Sodium 138 (135-145) mmol/L Potassium 3.9 (3.3-5.1) mmol/L Chloride 106 (96-108) mmol/L Carbon Dioxide 25 (22-29) mmol/L Anion Gap 11 L (12-20) BUN 7 L (9-16) mg/dL Creatinine 0.70 (0.5-1.4) mg/dL Estim Creat Clear Calc 69.9 Estimated GFR > 60 Random Glucose 125 H (60-115) mg/dL Calcium 9.2 (8.4-10.2) mg/dL Total Bilirubin 1.7 H (0.0-1.0) mg/dL Direct Bilirubin 0.4 (0.0-0.5) mg/dL AST 18 (5-31) U/L ALT 13 (0-31) U/L Alkaline Phosphatase 70 (39-117) U/L Total Protein 6.9 (6.5-8.0) g/dL Albumin 4.4 (3.5-5.0) g/dL Lipase 14 (8-78) U/L Urine Color Dark Yellow Urine Appearance Clear Urine pH 5.5 (5.0-9.0) Ur Specific [place] 1.025 (1.005-1.025) Urine Protein 30 (1+) H (Neg-Trace) mg/dL Urine Glucose (UA) Negative (Negative) mg/dL Urine Ketones 15 (Negative) mg/dL Urine Blood Negative (Negative) Urine Nitrite Negative (Negative) Ur Leukocyte Esterase Negative (Negative) Urine RBC 0-2 (0-2) /HPF Urine WBC 0-5 (0-5) /HPF Ur Squamous Epith Cells 0-2 (0-2) /HPF Urine Bacteria None Seen (None Seen) Hyaline Casts 0-2 (0-2) /LPF Independent Interpretation I performed an independent interpretation of an: CT Scan Radiology Impression Discussion of test interpretation with radiology: I have reviewed the radiologist's reading. Tests considered The following testing was considered but not selected: Would have considered sepsis work up had patient been ill or septic appearing Prescription Management I considered prescription management with: Pain Medication and Antibiotic Chronic Conditions Patient?s care impacted by: Other GERD, MDD, chronic pelvic pain, anxiety Social Determinants Patient?s care significantly limited by Social Determinants of Health including: Other Social Determinant of Health Medications Administered Discontinued Medications Generic Name Dose Route Start Last Admin Trade Name Stacey PRN Reason Stop Dose Admin Iohexol 85 ml 02/21/25 12:28 02/21/25 12:29 Iohexol 350 Mg/Ml 100 Ml Infus..Btl IV 02/21/25 12:29 85 ml ONCE ONE Administration Discharge Plan Discharge Clinical Impression: Acute diverticulitis Diarrhea Qualifiers: Diarrhea type: unspecified type Qualified Code(s): R19.7 - Diarrhea, unspecified Abdominal pain Qualifiers: Abdominal location: left lower quadrant Qualified Code(s): R10.32 - Left lower quadrant pain Patient Disposition: Home, Self-Care Instructions: Diverticulitis (ED) Additional Instructions: You were seen in the emergency department today due to months of abdominal pain associated with nausea vomiting and diarrhea although it seems as if he might have some type of inflammatory bowel disorder given the acute worsening you sought medical attention here today. you had a CT scan that does show a mild infection of your intestine in the left lower quadrant. For this reason we are placing you on antibiotics and I have recommended diet as below. It is important that you follow up outpatient with Gastroenterology. if for any reason you feel the pain is worse you are not able to tolerate p.o. fluids or you. Voiding regularly and noticed blood in your stools that are significant please seek medical attention in the emergency department again Stage 1: Clear Liquid Diet (First 1?2 days) This gives your bowel time to rest and reduce inflammation. Allowed: Water Broth (chicken, beef, or vegetable) Clear juices (apple, grape?not orange) Gelatin (no added fruit Ice pops (no chunks or pulp) Tea or coffee (no cream) Avoid: Solid food Milk or dairy (at this stage) Stage 2: Low-Fiber Diet (Once symptoms improve, usually after 1?3 days) This eases the transition back to normal eating while minimizing irritation. Recommended foods: White rice, plain pasta, white bread Cooked or canned vegetables (no seeds or skins) Bananas, applesauce, melon Lean proteins (eggs, skinless chicken, fish) Low-fat dairy (yogurt, milk, cheese?if tolerated) Avoid: Raw fruits and vegetables Whole grains Nuts, seeds, popcorn Legumes (beans, lentils) Tough or fatty meats Stage 3: Gradual Return to High-Fiber Diet (After full recovery) Once symptoms resolve and inflammation clears (typically within a week), fiber is gradually reintroduced to help prevent future attacks. Add slowly: Whole grains (brown rice, oats, whole wheat) Fresh fruits and vegetables (peeled at first) Beans and legumes (in small amounts) Plenty of fluids (to help fiber move through the gut) Tips: Eat smaller meals more frequently during recovery. Avoid alcohol, spicy foods, and caffeine early on?they can irritate the gut. Stay hydrated?water is essential for bowel healing. Prescriptions: New ciprofloxacin HCl 500 mg tablet 500 mg PO BID Qty: 10 0RF metronidazole 500 mg tablet 500 mg PO Q8H Qty: 30 0RF No Action gabapentin 300 mg capsule 300 mg PO TID 30 Days Qty: 90 0RF ([facility]) Shower Chair [facility] See Rx Instructions .ROUTE .MEDSUPPLY Qty: 1 0RF Rx Instructions: As directed albuterol sulfate [Ventolin HFA] 90 mcg/actuation HFA aerosol inhaler 2 puff inhalation Q6H PRN (Reason: shortness of breath or wheezing) 30 Days Qty: 8 0RF rizatriptan 10 mg tablet 10 mg PO Q2-4H PRN (Reason: migraine headache) 30 Days Qty: 10 0RF Rx Instructions: do not exceed 3 doses per 24 hrs topiramate 25 mg capsule, sprinkle 25 mg PO DAILY 30 Days Qty: 30 0RF lidocaine 5 % adhesive patch,medicated 1 patch topical DAILY 15 Days Qty: 15 0RF Rx Instructions: leave on most painful area for up to 12 hrs cholestyramine (with sugar) 4 gram powder in packet 4 g PO DAILY 60 Days Qty: 60 3RF Rx Instructions: administer w/meal; avoid other meds within 1hr before or 4-6hr after dose propranolol 10 mg tablet 10 mg PO BID 30 Days Qty: 60 0RF levothyroxine 100 mcg tablet 100 mcg PO DAILY Qty: 90 1RF diclofenac sodium 1 % gel 2 g topical QID 30 Days Qty: 100 0RF Rx Instructions: apply to single elbow, wrist or hand; for hand includes palm/fingers/back of hand lidocaine [Lidoderm] 5 % adhesive patch,medicated 1 patch topical DAILY Qty: 15 0RF Rx Instructions: leave on most painful area for up to 12 hrs fluorometholone 0.1 % drops,suspension 1 drp ophthalmic (eye) TID trazodone 50 mg tablet 25 mg PO BEDTIME duloxetine 20 mg capsule,delayed release(DR/EC) 20 mg PO DAILY magnesium 250 mg tablet 250 mg PO DAILY buspirone 5 mg tablet 5 mg PO TID PRN (Reason: anxiety) albuterol sulfate 90 mcg/actuation HFA aerosol inhaler 1 inh inhalation QID PRN (Reason: shortness of breath or wheezing) 30 Days Qty: 6.7 1RF cromolyn 4 % drops 1 drp ophthalmic (eye) QID 7 Days Qty: 10 0RF ezetimibe [Zetia] 10 mg tablet 10 mg PO DAILY 90 Days Qty: 90 1RF ibuprofen 800 mg tablet 800 mg PO TID PRN (Reason: fever or pain) 30 Days Qty: 90 0RF pantoprazole 40 mg tablet,delayed release (DR/EC) 40 mg PO DAILY Qty: 90 2RF Rx Instructions: take one tablet half an hour before breakfast sennosides [Natural Senna Laxative] 8.6 mg tablet 17.2 mg PO BEDTIME Qty: 60 3RF rosuvastatin 20 mg tablet 20 mg PO DAILY 90 Days Qty: 90 1RF docusate sodium [Colace] 100 mg capsule 100 mg PO BID Qty: 90 1RF polyethylene glycol 3350 [Miralax] 17 gram/dose powder 17 g PO BID Qty: 510 3RF docusate sodium 283 mg/5 mL enema 283 mg MA DAILY Qty: 150 3RF cyclobenzaprine 5 mg tablet 5 mg PO BEDTIME PRN (Reason: muscle spasm) 30 Days Qty: 90 1RF meclizine 25 mg tablet 25 mg PO BID PRN (Reason: dizziness) 5 Days Qty: 90 1RF mecobalamin (vitamin B12) 1,000 mcg lozenge 1,000 mcg PO DAILY 60 Days Qty: 60 4RF Rx Instructions: allow to dissolve in mouth OR may chew lightly before swallowing cholecalciferol (vitamin D3) 25 mcg (1,000 unit) capsule 25 mcg PO DAILY 90 Days Qty: 90 1RF prednisone 20 mg tablet 40 mg PO DAILY 5 Days Qty: 10 2RF naproxen 500 mg tablet 500 mg PO Q12H PRN (Reason: pain (scale score 1-3)) Qty: 20 1RF nystatin 100,000 unit/gram powder 1 appl topical QID Qty: 60 3RF lorazepam 2 mg tablet 5 mg PO BEDTIME PRN escitalopram oxalate 5 mg tablet 5 mg PO DAILY Referrals: [facility] [Provider Group, Gastroenterology] Referral Note: diverticulitis, 10 months of n/v/d Interventions: ED Discharge Assessment Last Done: 02/21/25 14:16 Discharge Date/Time: 02/21/25 14:17 Print Language: Sinhala
[2025-02-21 12:27] VITALS: RESP 18
[2025-02-21 12:27] LABS: Lipase 14 U/L (8-78)
[2025-02-21] MEDS: iohexoL 350 MG/ML 100 ML INFUS..BTL 85 ML IV (12:29)
[2025-02-21 14:16] VITALS: BP 134/82; PULSE 73; RESP 16; TEMP 36.8; O2SAT 97
== END 2025-02-21 14:17 | disposition home or self-care (01) ==
PROVIDERS: Physician Assistant Medical; Emergency Provider Emergency Medicine; PCP Internal Medicine
DX: K57.32 Diverticulitis of large intestine without perforation or abscess without bleeding (principal); R10.2 Pelvic and perineal pain; R11.2 Nausea with vomiting, unspecified; M54.50 Low back pain, unspecified; R19.7 Diarrhea, unspecified; R10.32 Left lower quadrant pain; Z79.899 Other long term (current) drug therapy
CPT/HCPCS: 36415; 74177; 80048; 80076; 81001; 83690; 85025; 99284; Q9967

== ENCOUNTER → 2025-02-21 11:55 | Outpatient (BNV) | payer MEDICARE, MEDICAID, SELFPAY | PROVIDERS: Emergency Provider Emergency Medicine; PCP Internal Medicine; Visit Provider Radiology Diagnostic Radiology | DX: K57.30 Diverticulosis of large intestine without perforation or abscess without bleeding (principal) | CPT/HCPCS: 74177 ==

== ENCOUNTER 2025-03-18 11:25 | Emergency (ER) | payer MEDICARE, MEDICAID, SELFPAY ==
[2025-03-18 11:49] VITALS: BP 149/65; PULSE 63; RESP 16; TEMP 36.5; O2SAT 95; BMI 28.5
--- NOTE | 2025-03-18 11:50 | ED_ITS ---
HPI - General Adult General Chief complaint: General Medical Stated complaint: back pain and rash under breast Time Seen by Provider: 03/18/25 12:55 Source: patient and RN notes reviewed Mode of arrival: ambulatory Limitations: no limitations History of Present Illness ED Provider: Ekta Castillo PA-C HPI narrative: This is a 60-year-old female, with a past medical history of autoimmune thyroiditis, dyslipidemia, GERD, anemia, GERD, and a positive, who presents emergency department for evaluation of multiple complaints.Pt states that she has had an itchy rash noted under her bilateral breasts for the last week. reports that she had a similar rash several months ago and was prescribed a powder which helped and resolved her symptoms. She also reports that she believes that she may also have this rash in her genital region due to itchiness. She also reports mild dysuria x 1 week. No hematuria, urinary frequency, urgency, abdominal pain, fevers, chills, chest pain, or shortness of breath. No other complaints or concerns at this time. MD complaint: Multiple complaints Onset (ago): week(s) Relieving factors: none Exacerbating factors: none Associated symptoms: denies other symptoms Treatments prior to arrival: none Related Data Home Medications ?Medication ?Instructions ?Recorded ?Confirmed magnesium 250 mg tablet 250 mg PO DAILY 10/26/2209/02 duloxetine 20 mg capsule,delayed 20 mg PO DAILY 12/07/24 release fluorometholone 0.1 % eye 1 drp ophthalmic (eye) TID 0 03/29/23 12/07/24 drops,suspension trazodone 50 mg tablet 25 mg PO BEDTIME 03/29/23 escitalopram oxalate 5 mg tablet 5 mg PO DAILY 5 12/07/24 lorazepam 2 mg tablet 5 mg PO BEDTIME PRN 12/07/24 12/07/24 buspirone 7.5 mg tablet 7.5 mg PO TID PRN anxiety Previous Rx's ?Medication ?Instructions ?Recorded gabapentin 300 mg capsule 300 mg PO TID 30 days #90 ca ps 09/04/21 Shower Chair #1 ea 10/17/21 Ventolin HFA 90 mcg/actuation 2 puff inhalation Q6H NH N 01/27/23 aerosol inhaler (albuterol sulfate) shortness of breat h or wheezing 30 days #8 grams albuterol sulfate 90 mcg/actuation 1 inh inhalation QI D PRN shortness 03/22/24 aerosol inhaler of breath or wheezing 30 day s #6.7 grams cromolyn 4 % eye drops 1 drp ophthalmic (eye) QID 7 days 03/22/24 #10 mL ezetimibe 10 mg tablet (Zetia) 10 mg PO DAILY 90 days #90 tabs 03/22/24 pantoprazole 40 mg tablet,delayed 40 mg PO DAILY #90 t abs 03/22/24 release rosuvastatin 20 mg tablet 20 mg PO DAILY 90 days #90 t abs 03/22/24 sennosides 8.6 mg tablet (Natural 17.2 mg (2 x 8.6 mg) PO BEDTIME 03/22/24 Senna Laxative) constipation #60 tabs rizatriptan 10 mg tablet 10 mg PO Q2-4H PRN migraine 03/29/24 headache 30 days #10 tabs topiramate 25 mg sprinkle capsule 25 mg PO DAILY 30 da ys #30 caps 05/09/24 cholestyramine (with sugar) 4 gram 4 g PO DAILY 60 day s #60 ea 07/07/24 powder for susp in a packet propranolol 10 mg tablet 10 mg PO BID 30 days #60 tab s 08/11/24 cholecalciferol (vitamin D3) 25 25 mcg PO DAILY 90 day s #90 caps 10/12/24 mcg (1,000 unit) capsule cyclobenzaprine 5 mg tablet 5 mg PO BEDTIME PRN muscle spasm 10/12/24 30 days #90 tabs docusate sodium 100 mg capsule 100 mg PO BID constipat ion #90 caps 10/12/24 (Colace) docusate sodium 283 mg/5 mL enema 283 mg (5 mL) NH MAYRA LY #150 mL 10/12/24 levothyroxine 100 mcg tablet 100 mcg PO DAILY #90 tabs 10/12/24 meclizine 25 mg tablet 25 mg PO BID PRN dizziness 5 days 10/12/24 #90 tabs mecobalamin (vitamin B12) 1,000 1,000 mcg PO DAILY 60 days #60 ea 10/12/24 mcg lozenges polyethylene glycol 3350 17 17 g PO BID #510 grams 01/31 gram/dose oral powder (Miralax) naproxen 500 mg tablet 500 mg PO Q12H PRN pain (sca le 12/07/24 score 1-3) #20 tabs nystatin 100,000 unit/gram topical 1 appl topical QID #60 grams 12/07/24 powder prednisone 20 mg tablet 40 mg (2 x 20 mg) PO DAILY 5 days 12/07/24 #10 tabs diclofenac sodium 1 % topical gel 2 g topical QID 30 d ays #100 grams 02/12/25 ciprofloxacin HCl 500 mg tablet 500 mg PO BID #10 tabs 03/05/25 acetaminophen 500 mg tablet 500 - 1,000 mg (1 - 2 x 50 0 mg) PO 03/18/25 (Tylenol Extra Strength) Q8H PRN pain #30 tabs ibuprofen 600 mg tablet 600 mg PO Q6H PRN pain #30 t abs 03/18/25 lidocaine 4 % topical patch 1 patch topical DAILY PRN pain 30 03/18/25 (AsperFlex (lidocaine)) days #30 ea methocarbamol 750 mg tablet 750 mg PO TID PRN muscle s pasm 3 03/18/25 days #9 tabs miconazole nitrate 2 % vaginal 1 appful vaginal BEDTIM E 7 days 03/18/25 cream #45 grams nystatin 100,000 unit/gram topical 1 appl topical BID 2 weeks #30 03/18/25 powder grams methylcellulose (laxative) 500 mg 500 mg PO DAILY #90 tabs 03/19/25 tablet (Citrucel) Allergies Allergy/AdvReac Type Severity Reaction Status Date / Time statin AdvReac Intermediate elevated Uncoded 03/19/25 11:15 liver enzymes Review of Systems 2 Review of Systems: Yes all other systems are reviewed and are negative Constitutional: Constitutional: Reports as per HPI [facility] Past Medical History Medical History Elevated random blood glucose level Depression Anxiety Sinus bradycardia Colon cancer screening DAILY positive Medication refill Tinea Constipation Uterine fibroid Fibroids Physical exam Polyarthralgia Leukopenia Ear discomfort JAXSON (generalized anxiety disorder) Moderate recurrent major depression Neck pain New daily persistent headache Postablative hypothyroidism Graves disease Severe major depression without psychotic features Left leg pain Pernicious anemia Lumbar degenerative disc disease Lumbar pain Nausea and vomiting GERD (gastroesophageal reflux disease) Hypovitaminosis D B12 deficiency Dyslipidemia Autoimmune thyroiditis Surgical History History of laparoscopic cholecystectomy Family History Family History Father Medical history unknown Mother Chronic mental illness Diabetes Hypertension Maternal Grandfather Stroke Maternal Aunt Uterine cancer Family/Other FH: mental illness Maternal Grandmother Diabetes Social History Social History Household Members: None Housing: Apartment Are you a primary nonfarm animal caretaker to a significant other at home: Yes (mom, brothers) Do you presently have visiting nurse or other home services: No Alcohol intake: current Alcohol intake frequency: does not drink Alcohol type: wine and other Patient Tobacco Use Status: Former Tobacco user Tobacco use type: Cigarette e-Cigarette/Vaping Use: Never Used Second Hand Smoke Exposure: Yes service: No Current occupational status: disabled Sexual orientation: Straight/Heterosexual Gender identity: Female Cognitive needs: No Hearing needs: No Vision needs: No Physical Exam ED Vital Signs: Vital Signs - 24 hr 03/18/25 11:49 03/18/25 12:33 03/18/25 16:03 Temperature 97.7 F 98 F Pulse Rate 63 59 52 Respiratory Rate 16 16 12 Blood Pressure 149/65 H 149/74 H 170/73 H Pulse Oximetry 95 97 98 Oxygen Delivery Method Room Air Room Air Room Air 03/18/25 16:23 Temperature 98 F Pulse Rate 52 Respiratory Rate 12 Blood Pressure 170/73 H Pulse Oximetry 98 Oxygen Delivery Method Room Air BMI result Body Mass Index 28.5 Const General: cooperative, comfortable and no acute distress Orientation/consciousness: patient oriented x3 Limitations: no limitations [facility] Head: Yes normal to inspection, Yes normocephalic and Yes atraumatic Ears: hearing grossly normal bilaterally General nose exam: Normal external nose present Face and sinus: Yes normal facial exam Mouth: Normal oral and palatal mucosa present, oropharynx normal and moist mucous membranes Throat: Yes posterior oropharynx normal Eyes General: appearance normal, both eyes and all related structures Eyelids: Yes eyelids normal Conjunctivae: conjunctivae normal Sclerae: sclerae normal Pupils: Equal, round and reactive pupils present EOM: EOMs intact bilaterally Neck Neck: Yes normal visual inspection, Yes full ROM and Yes no lymphadenopathy Lymphatic: no lymphadenopathy noted Chest Chest palpation & inspection: normal inspection of the chest Resp Effort & Inspection: normal respiratory effort and able to speak in complete sentences Auscultation: clear to auscultation bilaterally, no crackles, no rales, no rhonchi and no wheezes Cardio Rate: regular rate Rhythm: regular rhythm Heart sounds: S1 normal heart sound present and S2 normal heart sound present GI Other: Abd soft, nontender Inspection: Yes normal to inspection Other: external examination with Shalonda Cespedes RN present at all times. Pt with mild erythema to the outer labia majora, does not extend into the vaginal canal. Nontender. Back/Spine/Pelvis Other: TTP overlying the left upper trapezius with spasm noted. no midline spine tenderness. Skin Other: underneath bilateral breasts there is slight erythema, shiney beefy rash noted, with some mild white crusting noted. Nontender. No open wounds. General skin exam: no rashes or lesions noted Trauma: no lacerations or abrasions Wounds: no wounds Neuro General: patient oriented x3 and moves all extremities Cranial nerves: Yes Equal, round and reactive pupils present Extrem General: Yes normal to inspection Right upper extremity: normal to inspection Left upper extremity: normal to inspection Right lower extremity: normal to inspection Left lower extremity: normal to inspection Course Course Course Narrative: Rapid medical examination performed in triage by Leela Parsons PA-C. Patient is a 60 year old assigned female at presenting to the emergency department with a rash, back pain, and vaginal pain. Patient states she has a rash under her belly and breasts for which she was previously given a powder but it is no longer helping. Patient states that her vagina itches and she thinks it is because she was shaving and cut a specific area but she is also concerned she has a UTI. Patient states that her back also hurts. Detailed physical exam and review of systems are deferred to the photo cartographer. UA ordered. Patient placed back in the waiting room pending room availability and results. Medical Decision Making Medical Decision Making MDM Narrative: This is a [id number]-female who presents to the ED with complaints of rash under breasts, in groin. Also endorsing some mild dysuria. On arrival, pt is well appearing, vital signs revealing pt is slightly hypertensive. Underneath BL breasts, pt has evidence of joycelyn rash as well as ?early onset of possible caandida vaginitis. UA does not appear to be infected. Pt with upper back muscle spasm, palpated on exam. Pt has no CVA tenderness. EKG was peformed revealing no acute ischemic changes. Will treat rash with topical agents, muscle spasm with muscle relaxants. Given return precautions. She understands and agrees with plan. Stable for d.c. Differential Diagnosis Differential Diagnoses: The differential diagnosis associated with the presentation includes cellulitis, candidiasis, contact dermatitis, lumbar radiculopathy, muscle spasm, UIT Lab Data [facility] Lab Attestation statement: I reviewed the patient's lab results. Slight leukopenia at 3.5, stable H&H, Slight elevation in T bili, LFTS WNL. No other acute findings. UA appears to be noninfected. 03/18/25 13:45 03/18/25 13:45 Labs: Lab Results 03/18/25 03/18/25 Range/Units 12:02 13:45 WBC 3.5 L (4.8-10.8) X10*3/uL RBC 4.74 (4.20-5.50) X10*6/uL Hgb 13.6 (12.0-16.0) g/dl Hct 41.3 (37.0-47.0) % MCV 87.1 (80.0-98.0) fL MCH 28.7 (27.0-33.0) pg MCHC 32.9 (31.0-35.0) g/dl RDW 13.1 (11.0-16.0) % Plt Count 127 L (160-400) X10*3/uL MPV 11.4 (9.4-12.3) fL Immature Gran % (Auto) 0.3 (0.0-0.4) % Neut % (Auto) 54.4 (45-73) % Lymph % (Auto) 37.2 (20-40) % Broome % (Auto) 6.9 (2-11) % Eos % (Auto) 0.9 (0-4) % Baso % (Auto) 0.3 (0-2) % Lymph # (Auto) 1.3 (1.2-4.9) X10*3/uL Broome # (Auto) 0.2 (0.1-1.2) X10*3/uL Eos # (Auto) 0.0 (0.0-0.4) X10*3/uL Baso # (Auto) 0.0 (0.0-0.2) X10*3/uL Abs Immat Gran (auto) 0.01 (0.00-0.03) X10*3/uL Absolute Neuts (auto) 1.9 L (2.0-8.3) x10*3/uL Absolute Nucleated RBC 0.000 (0.0-0.012) X10*3/uL Nucleated RBC % (auto) 0.0 (0.0-0.2) /100WBC Sodium 144 (135-145) mmol/L Potassium 4.4 (3.3-5.1) mmol/L Chloride 107 (96-108) mmol/L Carbon Dioxide 28 (22-29) mmol/L Anion Gap 13 (12-20) BUN 10 (9-16) mg/dL Creatinine 0.60 (0.5-1.4) mg/dL Estim Creat Clear Calc 79.1 Estimated GFR > 60 Random Glucose 96 (60-115) mg/dL Calcium 9.6 (8.4-10.2) mg/dL Magnesium 2.0 (1.6-2.6) mg/dL Total Bilirubin 1.2 H (0.0-1.0) mg/dL Direct Bilirubin 0.3 (0.0-0.5) mg/dL AST 22 (5-31) U/L ALT 15 (0-31) U/L Alkaline Phosphatase 63 (39-117) U/L Troponin I High Sens 3.6 (<3.5-17.0) ng/L Total Protein 6.9 (6.5-8.0) g/dL Albumin 4.6 (3.5-5.0) g/dL Urine Color Yellow Urine Appearance Clear Urine pH 5.0 (5.0-9.0) Ur Specific Fonda 1.025 (1.005-1.025) Urine Protein Negative (Neg-Trace) mg/dL Urine Glucose (UA) Negative (Negative) mg/dL Urine Ketones Negative (Negative) mg/dL Urine Blood Negative (Negative) Urine Nitrite Negative (Negative) Ur Leukocyte Esterase Negative (Negative) Independent Interpretation I performed an independent interpretation of an: EKG Interpretation: Vent. Rate : 48 BPM Atrial Rate : 48 BPM P-R Int : 146 ms QRS Dur : 84 ms QT Int : 442 ms P-R-T Axes : 44 13 27 degrees QTcB Int : 394 ms Sinus bradycardic at a ventricular rate of 48BPM. QT/QTC 442/394. No STEMI. Discharge Plan Discharge Clinical Impression: Candidiasis of skin, Vaginitis, Back pain Patient Disposition: Home, Self-Care Instructions: Back Pain (ED), Skin Yeast Infection (ED) Additional Instructions: You were seen in the emergency department for multiple complaints. Your overall workup was reassuring. You have a yeast infection underneath your bilateral breasts, please keep area clean and dry. You likely have a fungal infection causing you to have this rash. Apply topical powder as directed. You may have the start of a yeast infection vaginal and, please use topical agent as prescribed. You also evidence of a muscle spasm in your back. Please take muscle relaxants as prescribed, please be advised that this can cause drowsiness, do not drink alcohol or drive while taking this medication. Lidocaine patches can be beneficial. Taking Tylenol and or ibuprofen can also be helpful. Follow-up with your primary care physician regarding this visit. If any new or worsening symptoms occur including but not limited to severe chest pain, shortness for breath, please seek emergent care. Prescriptions: New nystatin 100,000 unit/gram powder 1 appl topical BID 14 Days Qty: 30 0RF lidocaine [AsperFlex (lidocaine)] 4 % adhesive patch,medicated 1 patch topical DAILY PRN (Reason: pain) 30 Days Qty: 30 0RF miconazole nitrate 2 % cream 1 appful vaginal BEDTIME 7 Days Qty: 45 0RF acetaminophen [Tylenol Extra Strength] 500 mg tablet 500 - 1,000 mg PO Q8H PRN (Reason: pain) Qty: 30 0RF methocarbamol 750 mg tablet 750 mg PO TID PRN (Reason: muscle spasm) 3 Days Qty: 9 0RF ibuprofen 600 mg tablet 600 mg PO Q6H PRN (Reason: pain) Qty: 30 0RF No Action gabapentin 300 mg capsule 300 mg PO TID 30 Days Qty: 90 0RF (DME) Shower Chair Misc See Rx Instructions .ROUTE .MEDSUPPLY Qty: 1 0RF Rx Instructions: As directed albuterol sulfate [Ventolin HFA] 90 mcg/actuation HFA aerosol inhaler 2 puff inhalation Q6H PRN (Reason: shortness of breath or wheezing) 30 Days Qty: 8 0RF rizatriptan 10 mg tablet 10 mg PO Q2-4H PRN (Reason: migraine headache) 30 Days Qty: 10 0RF Rx Instructions: do not exceed 3 doses per 24 hrs topiramate 25 mg capsule, sprinkle 25 mg PO DAILY 30 Days Qty: 30 0RF cholestyramine (with sugar) 4 gram powder in packet 4 g PO DAILY 60 Days Qty: 60 3RF Rx Instructions: administer w/meal; avoid other meds within 1hr before or 4-6hr after dose propranolol 10 mg tablet 10 mg PO BID 30 Days Qty: 60 0RF levothyroxine 100 mcg tablet 100 mcg PO DAILY Qty: 90 1RF diclofenac sodium 1 % gel 2 g topical QID 30 Days Qty: 100 0RF Rx Instructions: apply to single elbow, wrist or hand; for hand includes palm/fingers/back of hand ciprofloxacin HCl 500 mg tablet 500 mg PO BID Qty: 10 0RF fluorometholone 0.1 % drops,suspension 1 drp ophthalmic (eye) TID trazodone 50 mg tablet 25 mg PO BEDTIME duloxetine 20 mg capsule,delayed release(DR/EC) 20 mg PO DAILY magnesium 250 mg tablet 250 mg PO DAILY albuterol sulfate 90 mcg/actuation HFA aerosol inhaler 1 inh inhalation QID PRN (Reason: shortness of breath or wheezing) 30 Days Qty: 6.7 1RF cromolyn 4 % drops 1 drp ophthalmic (eye) QID 7 Days Qty: 10 0RF ezetimibe [Zetia] 10 mg tablet 10 mg PO DAILY 90 Days Qty: 90 1RF pantoprazole 40 mg tablet,delayed release (DR/EC) 40 mg PO DAILY Qty: 90 2RF Rx Instructions: take one tablet half an hour before breakfast sennosides [Natural Senna Laxative] 8.6 mg tablet 17.2 mg PO BEDTIME Qty: 60 3RF rosuvastatin 20 mg tablet 20 mg PO DAILY 90 Days Qty: 90 1RF docusate sodium [Colace] 100 mg capsule 100 mg PO BID Qty: 90 1RF polyethylene glycol 3350 [Miralax] 17 gram/dose powder 17 g PO BID Qty: 510 3RF docusate sodium 283 mg/5 mL enema 283 mg NH DAILY Qty: 150 3RF cyclobenzaprine 5 mg tablet 5 mg PO BEDTIME PRN (Reason: muscle spasm) 30 Days Qty: 90 1RF meclizine 25 mg tablet 25 mg PO BID PRN (Reason: dizziness) 5 Days Qty: 90 1RF mecobalamin (vitamin B12) 1,000 mcg lozenge 1,000 mcg PO DAILY 60 Days Qty: 60 4RF Rx Instructions: allow to dissolve in mouth OR may chew lightly before swallowing cholecalciferol (vitamin D3) 25 mcg (1,000 unit) capsule 25 mcg PO DAILY 90 Days Qty: 90 1RF buspirone 7.5 mg tablet 7.5 mg PO TID PRN (Reason: anxiety) Citrucel 500 mg tablet 500 mg PO DAILY Qty: 90 2RF Rx Instructions: take it with full glass of water prednisone 20 mg tablet 40 mg PO DAILY 5 Days Qty: 10 2RF naproxen 500 mg tablet 500 mg PO Q12H PRN (Reason: pain (scale score 1-3)) Qty: 20 1RF nystatin 100,000 unit/gram powder 1 appl topical QID Qty: 60 3RF lorazepam 2 mg tablet 5 mg PO BEDTIME PRN escitalopram oxalate 5 mg tablet 5 mg PO DAILY Interventions: ED Discharge Assessment Last Done: 03/18/25 16:23 Discharge Date/Time: 03/18/25 16:24 Print Language: Korean
[2025-03-18 12:15] LABS: Appearance Urine Clear; Glucose Urine UA Negative (Negative); PH 5.0 (5.0-9.0); Specific Gravity - Urine 1.025 (1.005-1.025)
[2025-03-18 12:33] VITALS: BP 149/74; PULSE 59; RESP 16; O2SAT 97
--- NOTE | 2025-03-18 12:39 | PC.NURSE ---
60 F presents to ED with center of back to R back pain x 2 weeks, sharp pain and rash under breasts. A+Ox4, calm, cooperative. RR even and unlabored, denies CP or SOB. Pt denies any recent injuries, sts has back issues but this pain is worse. Skin under breasts flaky but not red, pt sts she has been applying nystatin but skin has been flaking off.
--- NOTE | 2025-03-18 13:18 | ECG_ITS ---
Test Reason : chest pain Blood Pressure : */* mmHG Vent. Rate : 48 BPM Atrial Rate : 48 BPM P-R Int : 146 ms QRS Dur : 84 ms QT Int : 442 ms P-R-T Axes : 44 13 27 degrees QTcB Int : 394 ms Sinus bradycardia Otherwise normal ECG When compared with ECG of 10-Aug-2024 09:39, No significant change was found Referred By: Ekta Castillo Electronically Signed By: Chapito Mccauley
[2025-03-18 13:52] LABS: MANUAL DIFF FLAG NO
[2025-03-18 13:54] LABS: NRBC Abs Auto 0.000 X10*3/uL (0.0-0.012); NRBC Pct Auto 0.0 /100WBC (0.0-0.2); PLT CLUMP 1; Red Blood Count 4.74 X10*6/uL (4.20-5.50); SCAN SMEAR FLAG 1
[2025-03-18 13:56] LABS: Hematocrit 41.3 % (37.0-47.0); Hemoglobin 13.6 g/dl (12.0-16.0); Imm Gran Abs Auto 0.01 X10*3/uL (0.00-0.03); Imm Gran Pct Auto 0.3 % (0.0-0.4); Lymphocytes Absolute Auto 1.3 X10*3/uL (1.2-4.9); Mean Corpuscular HGB Conc 32.9 g/dl (31.0-35.0); Mean Corpuscular Hemoglobin 28.7 pg (27.0-33.0); Mean Corpuscular Volume 87.1 fL (80.0-98.0)
[2025-03-18 13:57] LABS: White Blood Count 3.5 X10*3/uL (4.8-10.8)
[2025-03-18 13:58] LABS: Platelet Count 127 X10*3/uL (160-400)
[2025-03-18 14:18] LABS: Alanine Aminotransferase 15 U/L (0-31); Albumin Level 4.6 g/dL (3.5-5.0); Alkaline Phosphatase 63 U/L (39-117); Anion Gap 13 (12-20); Aspartate Amino Transferase 22 U/L (5-31); Blood Urea Nitrogen 10 mg/dL (9-16); Calcium 9.6 mg/dL (8.4-10.2); Carbon Dioxide 28 mmol/L (22-29); Chloride 107 mmol/L (96-108); Creatinine Clr Calc Pharmacy 79.1; Estimated Glomerular Filt Rate > 60; Magnesium 2.0 mg/dL (1.6-2.6); Potassium 4.4 mmol/L (3.3-5.1); Sodium 144 mmol/L (135-145); Total Protein 6.9 g/dL (6.5-8.0)
[2025-03-18 14:26] LABS: Troponin-I High Sensitivity 3.6 ng/L (<3.5-17.0)
--- NOTE | 2025-03-18 15:42 | PC.NURSE ---
chaperoned the provider during a pelvic exam, pt tolerated well
[2025-03-18 16:03] VITALS: BP 170/73; PULSE 52; RESP 12; TEMP 36.6; O2SAT 98
[2025-03-18 16:23] VITALS: BP 170/73; PULSE 52; RESP 12; TEMP 36.6; O2SAT 98
== END 2025-03-18 16:24 | disposition home or self-care (01) ==
PROVIDERS: Physician Assistant Medical; Emergency Provider Emergency Medicine; PCP Internal Medicine
DX: N76.0 Acute vaginitis (principal); B37.2 Candidiasis of skin and nail; M54.50 Low back pain, unspecified; R07.89 Other chest pain; R00.1 Bradycardia, unspecified; Z79.899 Other long term (current) drug therapy
CPT/HCPCS: 36415; 80048; 80076; 81003; 83735; 84484; 85025; 93005; 99283; 99285

== ENCOUNTER → 2025-03-18 13:18 | Outpatient (BNV) | payer MEDICARE, MEDICAID, SELFPAY | PROVIDERS: Emergency Provider Emergency Medicine; PCP Internal Medicine; Visit Provider Internal Medicine Cardiovascular Disease | DX: R00.1 Bradycardia, unspecified (principal) | CPT/HCPCS: 93010 ==

== ENCOUNTER 2025-03-19 11:13 | Outpatient (AMB) | payer MEDICARE, MEDICAID, SELFPAY ==
--- NOTE | 2025-03-19 11:15 | MHC.OFFVIS ---
Vital Signs 03/19/25 11:21 Height 4 ft 11 in Weight 141 lb BMI 28.5 BP 144/84 H Blood Pressure Location Rt brachial Position Sitting Pulse 60 Pulse Source Pulse Oximeter Pulse Oximetry (%) 97 Oxygen Delivery Method Room Air Intake Visit Reasons: [place] screening. [facility] 2021 Intake Note: Est pt for initial colo screening. Pt prev seen for mgmt of fecal abn + bloating. CC; C.O. LUQ pain, N+V, and diarrhea. Pt states that she noticed significant onset in August 2024 and has had multiple episodes where she sought ED care through [facility]. No prior hx of colo per pt. Insulation Board Back Tender Required: No Accompanied by: Self / Same As Patient Allergies statin Adverse Reaction (Intermediate, Uncoded 03/19/25 11:15) elevated liver enzymes HPI HPI [place] screening. [facility] 2021: Details: LAST VISIT: Signed - 04/27/22 19:36 GERD (gastroesophageal reflux disease) I will start patient on pantoprazole. Patient was instructed to take it half an hour before breakfast. Discussed with patient also avoiding dietary triggers and ligament. Staying upright for minimum 3 hours after meals. Patient is taking [id number] PPI we have her do H pylori test today and treat empirically if positive. IBS (irritable bowel syndrome) Postprandial abdominal bloating air and was care and the patient states that she would feel constipated. IBS like symptoms, however we will check for gluten intolerance. Discussed with patient FODMAP diet. List of food recommended given to patient as well foods to avoid. Patient also reports that she is very anxious lot of times. Has back to her PCP about this. Will order Citrucel to help her bulk her stools and Senokot to help eliminate in her stools. Abdominal bloating Postprandial abdominal bloating. Discussed with patient avoiding certain dietary triggers and FODMAP diet as mentioned above. I will see patient in 2 months, her and her take her reviewed her going for her colonoscopy then. Patient might need to go for upper endoscopy. Patient is agreeable to plan of care and verbalizes understanding of instructions. She was given the opportunity to ask questions and all questions answered. ? Thank you for allowing me participate in her care Plan Orders Orders Transglutaminase Ab IgG Today R10.9 Transglutaminase IgA Today R10.9 Vitamin D 25-OH (D2 and D3) Today E55.9 H pylori Ag Stool Today K21.9 Medications New methylcellulose (laxative) (Citrucel) take it with full glass of water 500 mg PO DAILY 90 tabs 2RF K59.00 sennosides (Natural Senna Laxative) 17.2 mg (2 x 8.6 mg) PO BEDTIME 60 tabs 3RF constipation K59.00 pantoprazole take one tablet half an hour before breakfast 40 mg PO DAILY 90 tabs 2RF K21.9 TODAY'S VISIT Patient is here today for consultation. Patient was last seen in 2021 and was going to be sent for colonoscopy, however patient never followed up. Recent visit in the ER for abdominal pain. Patient was diagnosed with diverticulitis. Patient completed treatment with metronidazole and Cipro. Patient continues to have left lower and upper quadrant cramping. Postprandial diarrhea no matter what she eats. Denies melena, hematochezia, unintentional weight loss or ribbon like stools. Denies any mucus in the stool. Patient reports that even drinking coffee will stimulate her bowels and she will have diarrhea. Patient is not eating much fiber. Patient denies fast food, however she reports to be liking sweets. Patient denies dyspepsia, dysphagia or odynophagia. [facility] Medical History Elevated random blood glucose level Depression Anxiety Sinus bradycardia Colon cancer screening DAILY positive Medication refill Tinea Constipation Uterine fibroid Fibroids Physical exam Polyarthralgia Leukopenia Ear discomfort JAXSON (generalized anxiety disorder) Moderate recurrent major depression Neck pain New daily persistent headache Postablative hypothyroidism Graves disease Severe major depression without psychotic features Left leg pain Pernicious anemia Lumbar degenerative disc disease Lumbar pain Nausea and vomiting GERD (gastroesophageal reflux disease) Hypovitaminosis D B12 deficiency Dyslipidemia Autoimmune thyroiditis Surgical History History of laparoscopic cholecystectomy Family History Father Medical history unknown Mother Chronic mental illness Diabetes Hypertension Maternal Grandfather Stroke Maternal Aunt Uterine cancer Family/Other FH: mental illness Maternal Grandmother Diabetes Social History Household Members: None Housing: Apartment Are you a primary care transition mgr to a significant other at home: Yes (mom, brothers) Do you presently have visiting nurse or other home services: No Alcohol intake: current Alcohol intake frequency: does not drink Alcohol type: wine and other Patient Tobacco Use Status: Former Tobacco user Tobacco use type: Cigarette e-Cigarette/Vaping Use: Never Used Second Hand Smoke Exposure: Yes service: No Current occupational status: disabled Sexual orientation: Straight/Heterosexual Gender identity: Female Cognitive needs: No Hearing needs: No Vision needs: No Review of Systems Const Denies weight gain and Denies weight loss ENT Reports no additional complaints, Denies dysphagia and Denies odynophagia Card Reports no additional complaints Resp Reports no additional complaints GI Reports abdominal pain (Left lower quadrant), Denies belching, Denies melena, Reports bloating, Denies change in bowel habits, Denies dysphagia, Denies excessive flatus, Denies dyspepsia, Reports heartburn (Occasional), Denies diarrhea, Reports loose stools, Denies nausea, Denies odynophagia and Denies vomiting Musc Reports no additional complaints Neuro Reports no additional complaints Psych Reports no additional complaints Endo Reports no additional complaints Physical Exam Vital Signs: Last Vital Signs Pulse 60 03/19/25 11:21 BP 144/84 H 03/19/25 11:21 Pulse Ox 97 03/19/25 11:21 Oxygen Delivery Method Room Air 03/19/25 11:21 BMI result Body Mass Index 28.5 Const General: healthy appearing, no acute distress and well developed Nutritional Appearance: well nourished Orientation/consciousness: patient oriented x3 Resp Effort & Inspection: normal respiratory effort, able to speak in complete sentences, no tracheal deviation and symmetric chest movement Auscultation: clear to auscultation bilaterally Cardio Rate: regular rate GI Inspection: Yes normal to inspection and No distended Palpation (GI): Soft to palpation, not firm, nontender and No hepatosplenomegaly present Auscultation: normal bowel sounds General: Yes no CVA tenderness Back/Spine/Pelvis Back: no CVA tenderness Skin General skin exam: elasticity normal, turgor normal and dry skin Neuro General: patient oriented x3 Psych Appearance: grossly normal Mental Status: mental status grossly normal Assessment & Plan Assessment & Plan (1) GERD (gastroesophageal reflux disease): Code(s): K21.9 - Gastro-esophageal reflux disease without esophagitis Category: Medical Qualifiers: Esophagitis presence: esophagitis presence not specified Qualified Code(s): K21.9 - Gastro-esophageal reflux disease without esophagitis (2) Diarrhea: Code(s): R19.7 - Diarrhea, unspecified Category: Medical Qualifiers: Diarrhea type: unspecified type Qualified Code(s): R19.7 - Diarrhea, unspecified (3) Constipation: Code(s): K59.00 - Constipation, unspecified Category: Medical Qualifiers: Constipation type: slow transit constipation Qualified Code(s): K59.01 - Slow transit constipation (4) Colon cancer screening: Code(s): Z12.11 - Encounter for screening for malignant neoplasm of colon Category: Medical Plan Patient will continue taking pantoprazole. Avoid dietary triggers in late night snacking. Staying upright for minimum 3 hours after meals discussed with patient. Patient will take dqbx-[id number] fiber supplement with pre and probiotics. Discussed with patient low FODMAP diet. List of food recommended as well as list of food to avoid given to patient. Patient will follow-up in 6 weeks to discuss going for colonoscopy. Will check transglutaminase, vitamin-D, lipase, thyroid study, vitamin B12 and folate. She will call our office if he will have GI concerning symptoms. Patient is agreeable to this plan and verbalizes understanding of instructions. She was given the opportunity to ask questions and all questions answered. Thank you for allowing me to participate in her care Orders: Orders Transglutaminase IgA Today R10.9 - Unspecified abdominal pain Vitamin D 25-OH (D2 and D3) Today E55.9 - Vitamin D deficiency, unspecified Lipase Today R10.9 - Unspecified abdominal pain TSH reflex Free T4 Today K59.00 - Constipation, unspecified Vitamin B12 and Folate Today R19.7 - Diarrhea, unspecified Medications: New methylcellulose (laxative) (Citrucel) take it with full glass of water 500 mg PO DAILY 90 tabs 2RF K59.00 - Constipation, unspecified Discontinued metronidazole Discontinued Reason: Patient no longer taking 500 mg PO Q8H 30 tabs 0RF Coding Level of Care Code Est Pt Level 4 (52055) Complex EM visit Add On G2211 Diagnoses Gastroesophageal reflux disease, unspecified whether esophagitis present K21.9 Esophagitis presence: esophagitis presence not specified Diarrhea R19.7 Diarrhea type: unspecified type Slow transit constipation K59.01 Constipation type: slow transit constipation Colon cancer screening Z12.11 Time Spent (min) 40 Comment 25 minutes spent with patient and additional 15 minutes spent reviewing her records
[2025-03-19 11:21] VITALS: BP 144/84; PULSE 60; O2SAT 97; BMI 28.5
--- OUTSIDE RECORDS SUMMARY | 2025-03-19 11:56 | XMS_ITS | Clinical Summary ---
Author Organization [employer] Address [address] [place] [address] Care Team Providers Care Print Designer Name Role Phone Unavailable Primary Care Provider [...] (2 of 2) 06/28/2023 05/03/2023 COVID-19 Vaccine (4 - season) 2024 07/29/2021, 11/06/2020, 10/09/2020 Tobacco Screening 05/20/2024 05/20/2023 Dental X-Ray: Bitewings 05/21/2024 05/20/20 23, 02/10/2017, 02/03/2016, Additional history exists Influenza Vaccine (#1) 2025 , 07/08/2018, 04/14/2017, Additional history exists RSV Patients [...] Most Recently Relevant to Health Maintenance Insurance [facility] [id number] , [place] [id number]
== END 2025-03-19 11:43 | disposition home or self-care (01) ==
LOC: HO.HGI 11:13
PROVIDERS: PCP Internal Medicine; Visit Provider Nurse Practitioner Family
DX: Z12.11 Encounter for screening for malignant neoplasm of colon (principal); K21.9 Gastro-esophageal reflux disease without esophagitis; R19.7 Diarrhea, unspecified; K59.01 Slow transit constipation
CPT/HCPCS: 99214; G2211

== ENCOUNTER → 2025-03-19 11:13 | Outpatient (BNVA) | payer MEDICARE, MEDICAID, SELFPAY | PROVIDERS: PCP Internal Medicine; Visit Provider Nurse Practitioner Family | DX: Z12.11 Encounter for screening for malignant neoplasm of colon (principal); K21.9 Gastro-esophageal reflux disease without esophagitis; K59.01 Slow transit constipation; R19.7 Diarrhea, unspecified | CPT/HCPCS: 99212 ==

== ENCOUNTER 2025-04-19 11:40 | Outpatient (REF) | payer MEDICARE, MEDICAID, SELFPAY ==
[2025-04-19 12:52] LABS: Lipase 22 U/L (8-78)
[2025-04-19 13:20] LABS: Folate 13.2 ng/mL (> or = 4.0); Vitamin B12 831 pg/mL (200-900)
[2025-04-23 18:14] LABS: Vitamin D 25-OH, D2 <4 ng/mL; Vitamin D 25-OH, D3 30 ng/mL; Vitamin D 25-OH, Total 30 ng/mL (30-100)
== END 2025-04-19 11:41 | disposition home or self-care (01) ==
LOC: HO.LAB 11:40
PROVIDERS: PCP Internal Medicine; Visit Provider Nurse Practitioner Family
DX: K59.00 Constipation, unspecified (principal); E55.9 Vitamin D deficiency, unspecified; R19.7 Diarrhea, unspecified; R10.9 Unspecified abdominal pain
CPT/HCPCS: 36415; 82306; 82607; 82746; 83690; 84443; 86364

== ENCOUNTER 2025-04-23 10:22 | Outpatient (AMB) | payer MEDICARE, MEDICAID, SELFPAY ==
[2025-04-23 10:33] VITALS: BP 138/70; PULSE 55; RESP 18; TEMP 36.3; O2SAT 98; BMI 28.2
--- NOTE | 2025-04-23 10:33 | MHC.PC.OV ---
Vital Signs 04/23/25 10:33 Height 4 ft 11 in Weight 139 lb 8 oz BMI 28.2 BP 138/70 Blood Pressure Location Lt brachial Position Sitting Respiration 18 Pulse 55 Pulse Source Pulse Oximeter Temp 97.3 F Temp Source Temporal Artery Scan Pulse Oximetry (%) 98 Oxygen Delivery Method Room Air Intake Visit Reasons: 3 month f/u Ventilation Equipment Tender Required: No Accompanied by: Self / Same As Patient Allergies statin Adverse Reaction (Intermediate, Uncoded 04/23/25 10:44) elevated liver enzymes Medication List - Last Reconciled 04/23/25 by Isidra Stanton MD acetaminophen (Tylenol Extra Strength) 500 - 1,000 mg (1 - 2 x 500 mg) PO Q8H PRN albuterol sulfate 90 mcg/actuation 1 inh inhalation QID PRN 30 days buspirone 7.5 mg PO TID PRN cholecalciferol (vitamin D3) 25 mcg PO DAILY 90 days cholestyramine (with sugar) 4 gram 4 grams PO DAILY 60 days ciprofloxacin HCl 500 mg PO BID cromolyn 4% 1 drp ophthalmic (eye) QID 7 days cyclobenzaprine 5 mg PO BEDTIME PRN 30 days diclofenac sodium 1% 2 grams topical QID 30 days docusate sodium 283 mg (5 mL) LA DAILY docusate sodium (Colace) 100 mg PO BID duloxetine 20 mg PO DAILY escitalopram oxalate 5 mg PO DAILY ezetimibe (Zetia) 10 mg PO DAILY 90 days fluorometholone 0.1% 1 drp ophthalmic (eye) TID gabapentin 300 mg PO TID 30 days ibuprofen 600 mg PO Q6H PRN levothyroxine 100 mcg PO DAILY lidocaine 4% (AsperFlex (lidocaine)) 1 patch topical DAILY PRN 30 days lorazepam 5 mg PO BEDTIME PRN magnesium 250 mg PO DAILY meclizine 25 mg PO BID PRN 5 days mecobalamin (vitamin B12) 1,000 mcg PO DAILY 60 days methocarbamol 750 mg PO TID PRN 3 days methylcellulose (laxative) (Citrucel) 500 mg PO DAILY miconazole nitrate 2% 1 appful vaginal BEDTIME 7 days naproxen 500 mg PO Q12H PRN nystatin 1 appl topical BID 2 weeks nystatin 1 appl topical QID pantoprazole 40 mg PO DAILY polyethylene glycol 3350 (Miralax) 17 grams PO BID prednisone 40 mg (2 x 20 mg) PO DAILY 5 days propranolol 10 mg PO BID 30 days rizatriptan 10 mg PO Q2-4H PRN 30 days rosuvastatin 20 mg PO DAILY 90 days sennosides (Natural Senna Laxative) 17.2 mg (2 x 8.6 mg) PO BEDTIME Shower Chair As directed topiramate 25 mg PO DAILY 30 days trazodone 25 mg PO BEDTIME Ventolin HFA 90 mcg/actuation (albuterol sulfate) 2 puffs inhalation Q6H PRN 30 days NS Tobacco use date assessed: 04/23/25 Dental Screening Dental Screen Date: 04/23/25 Did you have a dental visit in the last 12 months?: No Did you have a dental problem in the last 6 months where you did not have access to dental care?: No Was dental information given to patient?: No HPI HPI Comments History of Present Illness Details This is a 60-year-old female with mild recurrent major depression, anxiety, dyslipidemia and autoimmune thyroiditis that comes today for follow-up on her conditions. Depression with anxiety still present but she is not compliant with her escitalopram. Had elevated cholesterol in the past and statins cause has transaminitis. Lipid panel will be order for the next office visit. Last TSH was normal and this will be monitor. Did had an episode of acute diverticulitis in February and will see Gastroenterology soon. [facility] Medical History Elevated random blood glucose level Depression Anxiety Sinus bradycardia Colon cancer screening ISIDRA positive Medication refill Tinea Constipation Uterine fibroid Fibroids Physical exam Polyarthralgia Leukopenia Ear discomfort JAXSON (generalized anxiety disorder) Moderate recurrent major depression Neck pain New daily persistent headache Postablative hypothyroidism Graves disease Severe major depression without psychotic features Left leg pain Pernicious anemia Lumbar degenerative disc disease Lumbar pain Nausea and vomiting GERD (gastroesophageal reflux disease) Hypovitaminosis D B12 deficiency Dyslipidemia Autoimmune thyroiditis Surgical History History of laparoscopic cholecystectomy Family History Father Medical history unknown Mother Chronic mental illness Diabetes Hypertension Maternal Grandfather Stroke Maternal Aunt Uterine cancer Family/Other FH: mental illness Maternal Grandmother Diabetes Social History Household Members: None Housing: Apartment Are you a primary care management specialist to a significant other at home: Yes (mom, brothers) Do you presently have visiting nurse or other home services: No Alcohol intake: current Alcohol intake frequency: does not drink Alcohol type: wine and other Patient Tobacco Use Status: Former Tobacco user Tobacco use type: Cigarette e-Cigarette/Vaping Use: Never Used Second Hand Smoke Exposure: Yes service: No Current occupational status: disabled Sexual orientation: Straight/Heterosexual Gender identity: Female Cognitive needs: No Hearing needs: No Vision needs: No Questionnaire PHQ-9 Over the last 2 weeks, how often have you been bothered by any of the following problems? 1. Little interest or pleasure in doing things: more than half the days 2. Feeling down, depressed, or hopeless: several days 3. Trouble falling or staying asleep, or sleeping too much: several days 4. Feeling tired or having little energy: several days 5. Poor appetite or overeating: several days 6. Feeling bad about yourself - or that you are a failure or have let yourself or your family down: several days 7. Trouble concentrating on things, such as reading the newspaper or watching television: several days 8. Moving or speaking so slowly that other people could have noticed. Or the opposite - being so fidgety or restless that you have been moving around a lot more than usual: several days 9. Thoughts that you would be better off or of hurting yourself in some way: several days Total score: 10 Depression Screening Interpretation: Positive (no suicidal thoughts) Depression Screening Follow-up: Existing condition, In treatment and Follow-up Visit Requested Depression Screening Done: Yes 57055 - PHQ-9 Billing: Yes Source: Developed by Drs. Moncho Barriga, Kianna Salcedo, Abbe Donato and colleagues, with an educational lorenzo from [employer]. Thrive Questionnaire Date Thrive assessed: 04/23/25 I am a: Patient What is your living situation today?: I choose not to answer this question Within the past 12 months, did the food you bought not last and you didn't have the money to get more?: I choose not to answer this question Within the past 12 months, did you worry whether your food would run out before you got money to buy more?: I choose not to answer this question Do you have trouble paying for medicines?: No Do you have trouble getting transportation to medical appointments?: Yes Do you have trouble paying your heating and electricity bill?: No Do you have trouble taking care of your child, family member or friend?: I choose not to answer this question Do you have trouble with day-to-day activities such as bathing, preparing meals, shopping, managing finances, etc.?: Yes Are you currently unemployed and looking for a job?: No Are you interested in more education?: I choose not to answer this question Please select the resources that you would like help with: None Currently or been in a relationship where the following occur: I choose not to answer THRIVE Score: 1 AUDIT C Alcohol Use Questionnaire (AUDIT-C) 1. How often do you have a drink containing alcohol?: Never Total Score: 0 Score Reviewed/Action Taken: No JAXSON-7 AMB Questionnaire JAXSON-7 Date JAXSON - 7 assessed: 04/23/25 Feeling nervous, anxious, or on edge: 3 = Nearly every day Not being able to stop or control worryin = Nearly every day Worrying too much about different things: 3 = Nearly every day Trouble relaxin = Nearly every day Being so restless that it is hard to sit still: 3 = Nearly every day Becoming easily annoyed or irritable: 3 = Nearly every day Feeling afraid as if something awful might happen: 3 = Nearly every day Total JAXSON-7 score (0-4 normal; 5-9 mild; 10-14 moderate; 15-21 severe): 21 Source: Developed by Drs. Moncho Barriga, Kianna Salcedo, Abbe Donato and colleagues, with an educational lorenzo from [employer]. JAXSON-7 Assessment Billing JAXSON-7 Assessment Tool: JAXSON-7 Assessment 51289 Review of Systems Const All systems reviewed & are unremarkable except as noted in HPI and below Card Denies chest pain at rest, Denies chest pain with activity, Denies edema, Denies irregular heart rhythm, Denies claudication, Denies dyspnea, Denies dyspnea on exertion, Denies orthopnea, Denies paroxysmal nocturnal dyspnea and Denies slow heart rate Resp Denies cough, Denies dyspnea and Denies dyspnea on exertion GI Denies abdominal pain, Denies change in bowel habits, Denies excessive flatus, Denies nausea and Denies vomiting Physical exam (Primary Care) Vital Signs: Last Vital Signs Temp 97.3 F 04/23/25 10:33 Pulse 55 04/23/25 10:33 Resp 18 04/23/25 10:33 BP 138/70 04/23/25 10:33 Pulse Ox 98 04/23/25 10:33 Oxygen Delivery Method Room Air 04/23/25 10:33 BMI result Body Mass Index 28.2 Tobacco/Smoking Status: Tobacco use Status Tobacco use date assessed 04/23/25 04/23/25 10:39 Patient Tobacco Use Status Former Tobacco user 04/23/25 10:39 Tobacco use type Cigarette 04/23/25 10:39 e-Cigarette/Vaping Use Never Used 04/23/25 10:39 PHQ-9: PHQ-9 Score PHQ-9: Total score 10 04/23/25 10:39 Depression Screening Interpretation: Positive (no suicidal thoughts) Depression Screening Follow-up: Existing condition, In treatment and Follow-up Visit Requested Thrive Assessment: Date of Thrive Assessment Date Thrive assessed 04/23/25 04/23/25 10:39 Currently or been in a relationship where the following occur: I choose not to answer Resp Effort & Inspection: normal respiratory effort Auscultation: clear to auscultation bilaterally Cardio Jugular venous distension: no JVD Rate: regular rate Rhythm: regular rhythm Heart sounds: S1 normal heart sound present and S2 normal heart sound present Extrem General: Yes full ROM Coding Level of Care Code Est Pt Level 4 (41837) Complex EM visit Add On G2211 Diagnoses Mild recurrent major depression F33.0 JAXSON (generalized anxiety disorder) F41.1 Dyslipidemia E78.5 Autoimmune thyroiditis E06.3 Additional Codes PHQ-9 - 94465 - PHQ-9 Billing: Yes ([id number]) JAXSON-7 Assessment Billing - JAXSON-7 Assessment Tool: JAXSON-7 Assessment 14951 ([id number]) Time Spent (min) 21 Assessment & Plan Assessment & Plan (1) Mild recurrent major depression: Code(s): F33.0 - Major depressive disorder, recurrent, mild Category: Medical (2) JAXSON (generalized anxiety disorder): Code(s): F41.1 - Generalized anxiety disorder Category: Medical (3) Dyslipidemia: Code(s): E78.5 - Hyperlipidemia, unspecified Category: Medical (4) Autoimmune thyroiditis: Code(s): E06.3 - Autoimmune thyroiditis Category: Medical Plan Patient was advised to be compliant with her medications. TSH and lipid panel will be repeated in 4 months. Advise low-cholesterol diet. Orders: Orders Lipid Panel 5 Months E78.5 - Hyperlipidemia, unspecified Thyroid Stimulating Hormone 5 Months E89.0 - Postprocedural hypothyroidism Comprehensive [place]. Panel Fast 5 Months E78.5 - Hyperlipidemia, unspecified Vitamin D 25-OH Total 5 Months E55.9 - Vitamin D deficiency, unspecified Vitamin B12 and Folate 5 Months E53.8 - Deficiency of other specified B group vitamins Medications: Changed From magnesium 250 mg PO DAILY To magnesium 250 mg PO DAILY 90 tabs 3RF 90 days Refilled diclofenac sodium 1% apply to single elbow, wrist or hand; for hand includes palm/fingers/back of hand 2 grams topical QID 100 grams 0RF 30 days docusate sodium (Colace) 100 mg PO BID 90 caps 1RF constipation
--- OUTSIDE RECORDS SUMMARY | 2025-04-23 13:11 | XMS_ITS | Clinical Summary ---
Author Organization [employer] Address [address] [place] [address] Care Team Providers Care Assistant Corporate Controller Name Role Phone Unavailable Primary Care Provider [...] Zoster Vaccines (2 of 2) 06/28/2023 05/03/2023 Tobacco Screening 05/20/2024 05/20/2023 Dental X-Ray: Bitewings 05/21/2024 05/20/20 23, 02/10/2017, 02/03/2016, Additional history exists COVID-19 Vaccine ( season) 2025 07/29/2021, 11/06/2020, 10/09/2020 Influenza Vaccine (#1) 2025 , 07/08/2018, 04/14/2017, [...] Most Recently Relevant to Health Maintenance Insurance [facility] [place] [id number] , [place] [address]
== END 2025-04-23 10:59 | disposition home or self-care (01) ==
LOC: HO.HMCH 10:23
PROVIDERS: PCP Internal Medicine; Visit Provider Internal Medicine
DX: F33.0 Major depressive disorder, recurrent, mild (principal); F41.1 Generalized anxiety disorder; E78.5 Hyperlipidemia, unspecified; E06.3 Autoimmune thyroiditis

== ENCOUNTER → 2025-04-23 10:22 | Outpatient (BNVA) | payer MEDICARE, MEDICAID, SELFPAY | PROVIDERS: PCP Internal Medicine; Visit Provider Internal Medicine | DX: F33.0 Major depressive disorder, recurrent, mild (principal); F41.1 Generalized anxiety disorder; E78.5 Hyperlipidemia, unspecified; E06.3 Autoimmune thyroiditis; Z87.891 Personal history of nicotine dependence | CPT/HCPCS: 96127; 99212 ==

== ENCOUNTER 2025-05-08 10:36 | Outpatient (AMB) | payer MEDICARE, MEDICAID, SELFPAY ==
--- NOTE | 2025-05-08 11:07 | MHC.OFFVIS ---
Vital Signs 05/08/25 11:09 Height 4 ft 11 in Weight 137 lb BMI 27.7 BP 134/68 Blood Pressure Location Rt brachial Position Sitting Pulse 50 Pulse Source Pulse Oximeter Pulse Oximetry (%) 99 Oxygen Delivery Method Room Air Intake Visit Reasons: 6w Intake Note: Est pt for mgmt of fecal abn + bloating. Revisit colo. CC; C.O. loose stools / diarrhea, nausea and vomiting intermittently. Pt reports her sx were present for the last couple months, but have also been worse since experiencing a migraine episode for the last 3 days. Compliance Project Manager Required: No Accompanied by: Self / Same As Patient Allergies statin Adverse Reaction (Intermediate, Uncoded 05/08/25 11:08) elevated liver enzymes HPI HPI 6w: Details: LAST VISIT: GERD (gastroesophageal reflux disease) Diarrhea Constipation Colon cancer screening Plan Patient will continue taking pantoprazole. Avoid dietary triggers in late night snacking. Staying upright for minimum 3 hours after meals discussed with patient. Patient will take klnm-[id number] fiber supplement with pre and probiotics. Discussed with patient low FODMAP diet. List of food recommended as well as list of food to avoid given to patient. Patient will follow-up in 6 weeks to discuss going for colonoscopy. Will check transglutaminase, vitamin-D, lipase, thyroid study, vitamin B12 and folate. She will call our office if he will have GI concerning symptoms. Patient is agreeable to this plan and verbalizes understanding of instructions. She was given the opportunity to ask questions and all questions answered. ? Thank you for allowing me to participate in her care Orders Transglutaminase IgA Today R10.9 Vitamin D 25-OH (D2 and D3) Today E55.9 Lipase Today R10.9 TSH reflex Free T4 Today K59.00 Vitamin B12 and Folate Today R19.7 New methylcellulose (laxative) (Citrucel) take it with full glass of water 500 mg PO DAILY 90 tabs 2RF K59.00 Discontinued metronidazole Discontinued Reason: Patient no longer taking 500 mg PO Q8H 30 tabs 0RF TODAY'S VISIT: Patient is here today for follow-up. Patient is sitting in a room with them to light. She reports having severe migraine headache. Patient states I did not even want to be here my head hurts so much. Patient reports having frequent migraine headaches. Patient denies taking any medication for the headache. Patient reports anything she eats causes diarrhea. Patient takes fiber occasionally when she remembers to. Patient denies melena, hematochezia, unintentional weight loss or ribbon like stools. Patient reports frequent nausea and epigastric pain. Patient is taking pantoprazole. Does not feel like it helps. Frequent nausea with vomiting. Patient reports that had headaches are not causing nausea. Patient reports she has nausea and vomiting when she has epigastric pain. Patient has a cardiology visit for shortness of breath and chest pain in the summer. Reports dyspepsia without dysphagia or odynophagia. [facility] Medical History Elevated random blood glucose level Depression Anxiety Sinus bradycardia Colon cancer screening DAILY positive Medication refill Tinea Constipation Uterine fibroid Fibroids Physical exam Polyarthralgia Leukopenia Ear discomfort JAXSON (generalized anxiety disorder) Moderate recurrent major depression Neck pain New daily persistent headache Postablative hypothyroidism Graves disease Severe major depression without psychotic features Left leg pain Pernicious anemia Lumbar degenerative disc disease Lumbar pain Nausea and vomiting GERD (gastroesophageal reflux disease) Hypovitaminosis D B12 deficiency Dyslipidemia Autoimmune thyroiditis Surgical History History of laparoscopic cholecystectomy Family History Father Medical history unknown Mother Chronic mental illness Diabetes Hypertension Maternal Grandfather Stroke Maternal Aunt Uterine cancer Family/Other FH: mental illness Maternal Grandmother Diabetes Social History Household Members: None Housing: Apartment Are you a primary caretaker resort to a significant other at home: Yes (mom, brothers) Do you presently have visiting nurse or other home services: No Alcohol intake: current Alcohol intake frequency: does not drink Alcohol type: wine and other Patient Tobacco Use Status: Former Tobacco user Tobacco use type: Cigarette e-Cigarette/Vaping Use: Never Used Second Hand Smoke Exposure: Yes service: No Current occupational status: disabled Sexual orientation: Straight/Heterosexual Gender identity: Female Cognitive needs: No Hearing needs: No Vision needs: No Review of Systems Const Reports headache(s) (Migraines started 3 days ago), Denies weight gain and Denies weight loss ENT Reports no additional complaints, Denies dysphagia, Reports headache(s) (Migraines started 3 days ago) and Denies odynophagia Card Reports no additional complaints Resp Reports no additional complaints GI Reports abdominal pain (Left lower quadrant), Denies belching, Denies melena, Reports bloating, Denies change in bowel habits, Denies dysphagia, Denies excessive flatus, Denies dyspepsia, Reports heartburn (Occasional), Denies diarrhea, Reports loose stools, Denies nausea, Denies odynophagia and Denies vomiting Musc Reports no additional complaints Neuro Reports no additional complaints and Reports headache(s) (Migraines started 3 days ago) Psych Reports no additional complaints Endo Reports no additional complaints Physical Exam Vital Signs: Last Vital Signs Pulse 50 05/08/25 11:09 BP 134/68 05/08/25 11:09 Pulse Ox 99 05/08/25 11:09 Oxygen Delivery Method Room Air 05/08/25 11:09 BMI result Body Mass Index 27.7 Const General: healthy appearing, no acute distress and well developed Nutritional Appearance: well nourished Orientation/consciousness: patient oriented x3 Resp Effort & Inspection: normal respiratory effort, able to speak in complete sentences, no tracheal deviation and symmetric chest movement Auscultation: clear to auscultation bilaterally Cardio Rate: regular rate GI Inspection: Yes normal to inspection and No distended Palpation (GI): Soft to palpation, not firm, nontender and No hepatosplenomegaly present Auscultation: normal bowel sounds General: Yes no CVA tenderness Back/Spine/Pelvis Back: no CVA tenderness Skin General skin exam: elasticity normal, turgor normal and dry skin Neuro General: patient oriented x3 Psych Appearance: grossly normal Mental Status: mental status grossly normal Results Reviewed Results Reviewed: Laboratory Tests 04/19/25 11:49 Lipase 22 Vitamin B12 831 25-OH Vitamin D Total 30 Folate 13.2 TSH 1.27 Tiss Transglutamin IgA <1.0 Assessment & Plan Assessment & Plan (1) GERD (gastroesophageal reflux disease): Code(s): K21.9 - Gastro-esophageal reflux disease without esophagitis Category: Medical Qualifiers: Esophagitis presence: esophagitis presence not specified Qualified Code(s): K21.9 - Gastro-esophageal reflux disease without esophagitis (2) Nausea and vomiting: Code(s): R11.2 - Nausea with vomiting, unspecified Category: Medical Qualifiers: Vomiting Intractability: intractable Vomiting type: unspecified Qualified Code(s): R11.2 - Nausea with vomiting, unspecified (3) Diarrhea: Code(s): R19.7 - Diarrhea, unspecified Category: Medical Qualifiers: Diarrhea type: unspecified type Qualified Code(s): R19.7 - Diarrhea, unspecified (4) Constipation: Code(s): K59.00 - Constipation, unspecified Category: Medical Qualifiers: Constipation type: slow transit constipation Qualified Code(s): K59.01 - Slow transit constipation Plan Patient is anxious to leave. Has aggravating headache. Reports that nausea not related to her headaches. Patient reports she has nausea without migraines. Patient reports epigastric pain. Currently taking pantoprazole feels like it is not helping. She will start lansoprazole daily and will take famotidine at bedtime. Patient will follow-up in our office in 7 weeks to discuss colonoscopy. Patient was encouraged to call our office if she will have any GI concerning symptoms. She is agreeable to current plan of care and verbalizes understanding of instructions she was given the opportunity to ask questions and all questions answered. Thank you for allowing me to participate in her care Medications: New lansoprazole 30 mg PO DAILY 30 caps 3RF K21.9 - Gastro-esophageal reflux disease without esophagitis famotidine 40 mg PO BEDTIME 30 tabs 3RF K21.9 - Gastro-esophageal reflux disease without esophagitis Discontinued pantoprazole take one tablet half an hour before breakfast Discontinued Reason: Doctor's Order 40 mg PO DAILY 90 tabs 2RF K21.9 - Gastro-esophageal reflux disease without esophagitis Coding Level of Care Code Est Pt Level 4 (10760) Complex EM visit Add On G2211 Diagnoses Gastroesophageal reflux disease, unspecified whether esophagitis present K21.9 Esophagitis presence: esophagitis presence not specified Intractable vomiting with nausea, unspecified vomiting type R11.2 Vomiting Intractability: intractable Vomiting type: unspecified Diarrhea R19.7 Diarrhea type: unspecified type Slow transit constipation K59.01 Constipation type: slow transit constipation Time Spent (min) 30 Comment 20 minutes spent with patient and additional 10 minutes spent reviewing her records
[2025-05-08 11:09] VITALS: BP 134/68; PULSE 50; O2SAT 99; BMI 27.7
--- OUTSIDE RECORDS SUMMARY | 2025-05-08 11:54 | XMS_ITS | Clinical Summary ---
Author Organization [employer] Address [address] [facility] [address] [place] [address] Care Team Providers Care Gum Remover Name Role Phone Unavailable Primary Care Provider [...] Most Recently Relevant to Health Maintenance Insurance [facility] [place] [place] [address] , [place] [address]
== END 2025-05-08 11:36 | disposition home or self-care (01) ==
LOC: HO.HGI 10:37
PROVIDERS: PCP Internal Medicine; Visit Provider Nurse Practitioner Family
DX: K21.9 Gastro-esophageal reflux disease without esophagitis (principal); R11.2 Nausea with vomiting, unspecified; R19.7 Diarrhea, unspecified; K59.01 Slow transit constipation
CPT/HCPCS: 99214; G2211

== ENCOUNTER → 2025-05-08 10:36 | Outpatient (BNVA) | payer MEDICARE, MEDICAID, SELFPAY | PROVIDERS: PCP Internal Medicine; Visit Provider Nurse Practitioner Family | DX: K21.9 Gastro-esophageal reflux disease without esophagitis (principal); R11.2 Nausea with vomiting, unspecified; R19.7 Diarrhea, unspecified; K59.01 Slow transit constipation | CPT/HCPCS: 99212 ==

== ENCOUNTER 2025-05-30 12:20 | Outpatient (REF) | payer MEDICARE, MEDICAID, SELFPAY ==
--- NOTE | ~2025-05-30 | US_ITS ---
CLINICAL HISTORY: D25.9 - Leiomyoma of uterus, unspecified US pelvis transabdominal and transvaginal with color Doppler Comparison: US/[place]/SR - US PELVIS TRANSABDOMINAL AND TRANSVAGINAL - 01/22/23 12:54 EDT Findings: Transabdominal scanning performed for overall anatomy. Transvaginal scanning performed for additional detail. LMP: Postmenopausal Anteverted uterus, heterogeneous in echotexture measuring 4.7 x 3.0 x 4.4 cm. Uterus previously measured 6.5 x 4.1 x 5.6 cm. Normal endometrium, measuring 3.0 mm thickness Uterine fibroids: Anterior intramural 0.8 x 0.9 x 0.9 cm previously measuring 1.0 x 0.7 x 0.7 cm Posterior fundal intramural 0.6 x 0.5 x 0.4 cm stable The right ovary measures, 1.4 x 0.8 x 1.1 cm. Normal sonographic appearance right ovary. The left ovary measures, 1.1 x 2.3 x 1.0 cm. Normal sonographic appearance left ovary. No adnexal masses or fluid collections. No free fluid. Impression: 1. Leiomyomatous uterus. 2. Normal thickness endometrium. 3. Normal ovaries/adnexa for a postmenopausal female This document has been electronically signed by: Arsenio De Jesus MD on 05/31/2025 10:16:53
== END 2025-05-30 12:21 | disposition home or self-care (01) ==
LOC: HO.US 12:20
PROVIDERS: PCP Internal Medicine; Visit Provider Advanced Practice Midwife
DX: D25.9 Leiomyoma of uterus, unspecified (principal); R10.20 Pelvic and perineal pain unspecified side
CPT/HCPCS: 76830; 76856

== ENCOUNTER 2025-06-13 13:52 | Outpatient (AMB) | payer MEDICARE, MEDICAID, SELFPAY ==
--- NOTE | 2025-06-13 14:02 | MHC.OFFVIS ---
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 History of uterine fibroids. No postmenopausal bleeding. She reports ongoing lower left abdominal pain, rectal pressure at times, vomiting after eating and weight loss. She has a GI follow up in July. Planning a colonscopy. [facility] Medical History Elevated random blood glucose level Depression Anxiety Sinus bradycardia Colon cancer screening ISIDRA positive Medication refill Tinea Constipation Uterine fibroid Fibroids Physical exam Polyarthralgia Leukopenia Ear discomfort JAXSON (generalized anxiety disorder) Moderate recurrent major depression Neck pain New daily persistent headache Postablative hypothyroidism Graves disease Severe major depression without psychotic features Left leg pain Pernicious anemia Lumbar degenerative disc disease Lumbar pain Nausea and vomiting GERD (gastroesophageal reflux disease) Hypovitaminosis D B12 deficiency Dyslipidemia Autoimmune thyroiditis Surgical History History of laparoscopic cholecystectomy Family History Father Medical history unknown Mother Chronic mental illness Diabetes Hypertension Maternal Grandfather Stroke Maternal Aunt Uterine cancer Family/Other FH: mental illness Maternal Grandmother Diabetes Social History Household Members: None Housing: Apartment Are you a primary youth care professional to a significant other at home: Yes (mom, brothers) Do you presently have visiting nurse or other home services: No Alcohol intake: current Alcohol intake frequency: does not drink Alcohol type: wine and other Patient Tobacco Use Status: Former Tobacco user Tobacco use type: Cigarette e-Cigarette/Vaping Use: Never Used Second Hand Smoke Exposure: Yes service: No Current occupational status: disabled Sexual orientation: Straight/Heterosexual Gender identity: Female Cognitive needs: No Hearing needs: No Vision needs: No Review of Systems Const All systems reviewed & are unremarkable except as noted in HPI and below Endo Reports no additional complaints Physical Exam Const General: cooperative, healthy appearing and no acute distress Psych Appearance: well kempt Attitude: cooperative Thought process: Normal thought process present Results Reviewed Results Reviewed: [address] [address] Ultrasound Report Signed Patient: Brittany Negron MR#: [id number] : 1965 Acct:[id number] Age/Sex: 60 / F ADM Date: 05/30/25 Loc: [facility].US Attending Dr: Niru Rivero CNM Ordering Physician: Niru Rivero CNM Date of Service: 05/30/25 Procedure(s): US pelvic and transvaginal Accession Number(s): [id number] cc: Niru Rivero CNM; Isidra Nicholas MD~ Reason for Exam: D25.9 - Leiomyoma of uterus, unspecified CLINICAL HISTORY: D25.9 - Leiomyoma of uterus, unspecified US pelvis transabdominal and transvaginal with color Doppler Comparison: US/[place]/SR - US PELVIS TRANSABDOMINAL AND TRANSVAGINAL - 01/22/23 12:54 EDT Findings: Transabdominal scanning performed for overall anatomy. Transvaginal scanning performed for additional detail. LMP: Postmenopausal Anteverted uterus, heterogeneous in echotexture measuring 4.7 x 3.0 x 4.4 cm. Uterus previously measured 6.5 x 4.1 x 5.6 cm. Normal endometrium, measuring 3.0 mm thickness Uterine fibroids: Anterior intramural 0.8 x 0.9 x 0.9 cm previously measuring 1.0 x 0.7 x 0.7 cm Posterior fundal intramural 0.6 x 0.5 x 0.4 cm stable The right ovary measures, 1.4 x 0.8 x 1.1 cm. Normal sonographic appearance right ovary. The left ovary measures, 1.1 x 2.3 x 1.0 cm. Normal sonographic appearance left ovary. No adnexal masses or fluid collections. No free fluid. Impression: 1. Leiomyomatous uterus. 2. Normal thickness endometrium. 3. Normal ovaries/adnexa for a postmenopausal female This document has been electronically signed by: Arsenio De Jesus MD on 05/31/2025 10:16:53 Dictated By: Arsenio De Jesus MD Signed By: <Electronically signed by Arsenio De Jesus MD in OV> 05/31/25 1017 DD/ 1016 TD/TT: 05/31/25 1016 Informatica Developer: Assessment & Plan Assessment & Plan (1) Uterine fibroid: Code(s): D25.9 - Leiomyoma of uterus, unspecified Category: Medical Qualifiers: Uterine leiomyoma location: unspecified location Qualified Code(s): D25.9 - Leiomyoma of uterus, unspecified (2) Fibroid: Code(s): D21.9 - Benign neoplasm of connective and other soft tissue, unspecified Plan Discussed: Ultrasound findings- Impression: 1. Leiomyomatous uterus. 2. Normal thickness endometrium. 3. Normal ovaries/adnexa for a postmenopausal female Stable fibroids. Report any postmenopausal bleeding. Annual exam scheduled for January 2026. Keep follow up at GI. The patient expressed understanding and agreement with the plan of care. All of her questions and concerns were addressed to the best of my ability. This note is constructed using voice recognition software. While every effort has been made to ensure accuracy, fiber analyst errors may have been included. Coding Level of Care Code Est Pt Level 3 (43279) Diagnoses Uterine leiomyoma, unspecified location D25.9 Uterine leiomyoma location: unspecified location Fibroid D21.9
--- OUTSIDE RECORDS SUMMARY | 2025-06-13 17:05 | XMS_ITS | Clinical Summary ---
Author Organization [employer] Address [address] [facility] [address] [place] [address] Care Team Providers Care Pearl Technician Name Role Phone Unavailable Primary Care Provider [...] Most Recently Relevant to Health Maintenance Insurance [facility] [place] [address] , [place] [address]
== END 2025-06-14 07:36 | disposition home or self-care (01) ==
LOC: HO.HWS 13:53
PROVIDERS: PCP Internal Medicine; Visit Provider Advanced Practice Midwife
DX: D25.9 Leiomyoma of uterus, unspecified (principal); D21.9 Benign neoplasm of connective and other soft tissue, unspecified
CPT/HCPCS: 99213

== ENCOUNTER → 2025-06-13 13:52 | Outpatient (BNVA) | payer MEDICARE, MEDICAID, SELFPAY | PROVIDERS: PCP Internal Medicine; Visit Provider Advanced Practice Midwife | DX: D25.9 Leiomyoma of uterus, unspecified (principal); Z87.891 Personal history of nicotine dependence | CPT/HCPCS: 99212 ==

== ENCOUNTER 2025-07-31 10:30 | Outpatient (AMB) | payer MEDICARE, MEDICAID, SELFPAY ==
--- NOTE | 2025-07-31 10:43 | AM.OFFVISNUR ---
Intake Visit Reasons: Flu shot Allergies statin Adverse Reaction (Intermediate, Uncoded 06/13/25 14:02) elevated liver enzymes Office Procedures Flu Questionnaire Does the patient have a severe egg allergy?: No Does the patient have severe life threatening allergies?: No Does the patient have a fever or illness today?: No Has the patient ever had Guillain-[place] Syndrome?: No Has the patient ever had any past reaction to a flu shot?: No Immunizations Fluarix [id number] (PF) 45 mcg (15 mcg x 3)/0.5 mL IM syringe Performing Provider: Isidra Stanton MD [facility] Administered by: Shira Woods RN on 07/31/25 10:43 Dose Route Admin Location Dispensed Lot Number Expiration Date [facility] Check Scaler 0.5 mL IM Left Deltoid 0.5 mL [id number] 02/05/26 76591-185-36 [employer] VIS Given Date VIS Provided VIS Publication Date 07/31/25 Single Vaccine 24 Eligibility Eligibility Date Funding Source Not [facility] Eligible 07/31/25 Private Assessment & Plan Assessment & Plan Orders: Orders Influenza [id number] Immunization Today Z23 - Encounter for immunization Coding
--- OUTSIDE RECORDS SUMMARY | 2025-07-31 11:47 | XMS_ITS | Clinical Summary ---
Author Organization [employer] Address [address] [place] [address] Care Team Providers Care Director Compensation Name Role Phone Unavailable Primary Care Provider [...] Most Recently Relevant to Health Maintenance Insurance [facility] [place] [id number] , [place] [id number]
== END 2025-07-31 10:44 | disposition home or self-care (01) ==
LOC: HO.HMCH 10:31
PROVIDERS: PCP Internal Medicine; Visit Provider Internal Medicine
DX: Z23 Encounter for immunization (principal)

== ENCOUNTER → 2025-07-31 10:30 | Outpatient (BNVA) | payer MEDICARE, MEDICAID, SELFPAY | PROVIDERS: PCP Internal Medicine; Visit Provider Internal Medicine | DX: R00.1 Bradycardia, unspecified (principal); Z79.899 Other long term (current) drug therapy; Z23 Encounter for immunization | CPT/HCPCS: 90471; 90656; 99202 ==

== ENCOUNTER 2025-07-31 10:44 | Outpatient (AMB) | payer MEDICARE, MEDICAID, SELFPAY ==
--- NOTE | 2025-07-31 10:48 | MHC.OFFVIS ---
Vital Signs 07/31/25 10:51 Height 4 ft 11 in Weight 140 lb 10.479 oz BMI 28.4 BP 110/70 Blood Pressure Location Lt brachial Position Sitting Pulse 64 Pulse Source Pulse Oximeter Intake Visit Reasons: beater lead/chantal constantino/bradycardia r/s 04-17-25 Institutional Commodity Analyst Required: No Accompanied by: Self / Same As Patient Allergies statin Adverse Reaction (Intermediate, Uncoded 06/13/25 14:02) elevated liver enzymes Medication List - Last Reconciled 07/31/25 by Byron Davila MD acetaminophen (Tylenol Extra Strength) 500 - 1,000 mg (1 - 2 x 500 mg) PO Q8H PRN albuterol sulfate 90 mcg/actuation 1 inh inhalation QID PRN 30 days buspirone 7.5 mg PO TID PRN cholecalciferol (vitamin D3) 25 mcg PO DAILY 90 days cholestyramine (with sugar) 4 gram 4 grams PO DAILY 60 days cyclobenzaprine 5 mg PO BEDTIME PRN 30 days diclofenac sodium 1% 2 grams topical QID 30 days docusate sodium 283 mg (5 mL) LA DAILY docusate sodium (Colace) 100 mg PO BID duloxetine 20 mg PO DAILY escitalopram oxalate 5 mg PO DAILY ezetimibe (Zetia) 10 mg PO DAILY 90 days famotidine 40 mg PO BEDTIME fluorometholone 0.1% 1 drp ophthalmic (eye) TID gabapentin 300 mg PO TID 30 days ibuprofen 600 mg PO Q6H PRN lansoprazole 30 mg PO DAILY levocetirizine 5 mg PO DAILY 90 days levothyroxine 100 mcg PO DAILY lidocaine 4% (AsperFlex (lidocaine)) 1 patch topical DAILY PRN 30 days lorazepam 5 mg PO BEDTIME PRN magnesium 250 mg PO DAILY 90 days meclizine 25 mg PO BID PRN 5 days mecobalamin (vitamin B12) 1,000 mcg PO DAILY 60 days methocarbamol 750 mg PO TID PRN 3 days methylcellulose (laxative) (Citrucel) 500 mg PO DAILY naproxen 500 mg PO Q12H PRN nystatin 1 appl topical BID 2 weeks polyethylene glycol 3350 (Miralax) 17 grams PO BID prednisone 40 mg (2 x 20 mg) PO DAILY 5 days propranolol 10 mg PO BID 30 days rizatriptan 10 mg PO Q2-4H PRN 30 days rosuvastatin 20 mg PO DAILY 90 days sennosides (Natural Senna Laxative) 17.2 mg (2 x 8.6 mg) PO BEDTIME Shower Chair As directed topiramate 25 mg PO DAILY 30 days trazodone 25 mg PO BEDTIME Ventolin HFA 90 mcg/actuation (albuterol sulfate) 2 puffs inhalation Q6H PRN 30 days NS HPI Comments Details: Brittany has been referred for cardiac evaluation due to bradycardia. A recent EKG had revealed sinus bradycardia. Patient herself does not have any known cardiac issues including coronary disease or myocardial infarction or cardiomyopathy. She denies any overt symptoms like exertional angina. When going up flights of stairs she may feel tired and fatigued but otherwise nothing clearly pertaining to cardiac. She is on polypharmacy but she states a lot of medications suddenly taken intermittently. She is also listed to be on propranolol but she again takes it some days but not the others. [facility] Medical History Elevated random blood glucose level Depression Anxiety Sinus bradycardia Colon cancer screening DAILY positive Medication refill Tinea Constipation Uterine fibroid Fibroids Physical exam Polyarthralgia Leukopenia Ear discomfort JAXSON (generalized anxiety disorder) Moderate recurrent major depression Neck pain New daily persistent headache Postablative hypothyroidism Graves disease Severe major depression without psychotic features Left leg pain Pernicious anemia Lumbar degenerative disc disease Lumbar pain Nausea and vomiting GERD (gastroesophageal reflux disease) Hypovitaminosis D B12 deficiency Dyslipidemia Autoimmune thyroiditis Surgical History History of laparoscopic cholecystectomy Family History Father Medical history unknown Mother Chronic mental illness Diabetes Hypertension Maternal Grandfather Stroke Maternal Aunt Uterine cancer Family/Other FH: mental illness Maternal Grandmother Diabetes Social History Household Members: None Housing: Apartment Are you a primary transitional care nurse to a significant other at home: Yes (mom, brothers) Do you presently have visiting nurse or other home services: No Alcohol intake: current Alcohol intake frequency: does not drink Alcohol type: wine and other Patient Tobacco Use Status: Former Tobacco user Tobacco use type: Cigarette e-Cigarette/Vaping Use: Never Used Second Hand Smoke Exposure: Yes service: No Current occupational status: disabled Sexual orientation: Straight/Heterosexual Gender identity: Female Cognitive needs: No Hearing needs: No Vision needs: No Review of Systems Const Denies chills, Denies fatigue, Denies fever(s), Denies frequent falls, Denies weakness, Denies weight gain and Denies weight loss ENT Denies dizziness Card Denies chest pain, Denies leg edema, Denies lightheadedness, Denies palpitations, Denies dyspnea, Denies dyspnea on exertion and Denies orthopnea Resp Denies cough, Denies dyspnea and Denies dyspnea on exertion GI Denies bloating and Denies change in bowel habits Musc Denies muscle weakness, Denies numbness and Denies tingling Neuro Denies dizziness, Denies frequent falls, Denies numbness, Denies tingling and Denies weakness Endo Denies fatigue and Denies palpitations Physical Exam Vital Signs: Last Vital Signs Pulse 64 07/31/25 10:51 BP 110/70 07/31/25 10:51 BMI result Body Mass Index 28.4 Const General: comfortable and no acute distress Orientation/consciousness: patient oriented x3 HEENT Other: Unremarkable Head: Yes normal to inspection Neck Neck: Yes normal visual inspection Chest Chest palpation & inspection: normal inspection of the chest Resp Auscultation: clear to auscultation bilaterally Cardio Palpation: normal PMI Heart sounds: S1 normal heart sound present, S2 normal heart sound present, no gallops, no murmurs and no rubs GI Palpation (GI): Soft to palpation Back/Spine/Pelvis Other: unremarkable Skin General skin exam: no rashes or lesions noted Neuro General: patient oriented x3 Extrem General: Yes normal to inspection Psych Mental Status: mental status grossly normal Assessment & Plan Assessment & Plan (1) Sinus bradycardia: Code(s): R00.1 - Bradycardia, unspecified Category: Medical Plan EKGs reviewed. In the EKG from March, sinus bradycardia at 48/Min but otherwise unremarkable. Normal LA and corrected QT. In another EKG from August of this year, sinus bradycardia at 56/Min. In older EKG from 2012, sinus bradycardia at 54/Min. Overall, asymptomatic sinus bradycardia that has been present for more than a decade. She may have baseline sinus bradycardia which could be more prominent because of propranolol, but she states that she takes it only intermittently. In the absence of any symptoms like dizziness or presyncope, no specific implications from this. Avoid rate-controlling agents in the future. Otherwise, we will see her in the clinic on an as-needed basis. The patient was advised to self-monitor for symptoms such as dizziness, chest pain, or shortness of breath and to seek follow-up if they occur. Discussion Notes: I reviewed with the patient that her referral was for a slow heart rate. I explained that after reviewing her records, it is evident her heart rate has been slow for many years, and since she does not have associated symptoms, this is considered her normal state. We discussed that the propranolol she was prescribed can make the heart rate even slower, and she confirmed she does not take it regularly. I informed her that no cardiac intervention is needed at this time. I provided return precautions, instructing her to contact me if she develops any new symptoms like chest pain, shortness of breath, or dizziness. Patient was informed and verbally consented to the use of an ambient scribe for clinic note documentation during this visit. Patient Instructions: - Your slow heart rate is considered your normal baseline and does not require any treatment at this time. - Be aware that Propranolol can make your heart rate even slower. - Please contact us if you start to feel dizzy, have chest pain, or find it hard to breathe. Coding Level of Care Code New Pt Level 3 (50585) Diagnoses Sinus bradycardia R00.1
[2025-07-31 10:51] VITALS: BP 110/70; PULSE 64; BMI 28.4
== END 2025-07-31 11:02 | disposition home or self-care (01) ==
LOC: HO.HCS 10:45
PROVIDERS: PCP Internal Medicine; Visit Provider Internal Medicine
DX: R00.1 Bradycardia, unspecified (principal)
CPT/HCPCS: 99203